=== PATIENT | female | born 1970 | race Caucasian/White ===

== ENCOUNTER 2016-05-13 15:08 | Inpatient (IN) | payer BC ==
[2016-05-13] MEDS ORDERED: Acetaminophen TAB* 325 MG PO PRN (16:15)
[2016-05-13] MEDS ORDERED: Docusate CAP* 100 MG PO PRN (16:17)
[2016-05-13] MEDS ORDERED: diPHENhydraMINE PO* 25 MG PO PRN (16:17)
[2016-05-13] MEDS ORDERED: Morphine INJ* 10 MG/ML 1 ML SYRINGE IV PRN (16:21)
[2016-05-13] MEDS ORDERED: oxyCODONE/Acetamin 5/325 MG* TAB PO PRN (16:22)
[2016-05-13] MEDS ORDERED: Polyethylene Glycol 3350* 17 GM PACKET PO PRN (16:23)
[2016-05-13] MEDS: Prochlorperazine TAB* 5 MG PO PRN (16:34)
[2016-05-13] MEDS ORDERED: Enoxaparin(*) 40 MG/0.4 ML SYR SUBCUT SCH (17:00)
[2016-05-13] MEDS: Scopolomine PATCH Remove* 1 NOTE MISC PATCH OFF SCH (18:00)
[2016-05-13] MEDS: DOXYcycline CAP(*) 100 MG PO SCH (22:26)
[2016-05-13] MEDS: oxyCODONE SR TAB(*) 20 MG TAB.SR PO SCH (22:26)
[2016-05-13] MEDS: Ciprofloxacin TAB* 750 MG PO SCH (22:26)
[2016-05-13] MEDS: ALPRAZolam TAB* 0.5 MG PO PRN (22:26)
[2016-05-13] MEDS: Heparin VIAL(*) 5000 UNITS/ML VIAL (FIVE THOUSAND) SUBCUT SCH (22:28)
[2016-05-13] MEDS: Senna TAB PO SCH (22:30)
[2016-05-14] MEDS: Heparin VIAL(*) 5000 UNITS/ML VIAL (FIVE THOUSAND) SUBCUT SCH ×3 (06:22→21:47)
[2016-05-14] MEDS: DOXYcycline CAP(*) 100 MG PO SCH ×3 (06:26→20:37)
--- NOTE | 2016-05-14 06:28 | PN ---
Subjective Date of Service: 05/14/16 Interval History: Ms. Anthony states that she is feeling well. She reports being compliant with the Bipap overnight again and feeling much more awake and rested today. She was also happy to report that she sat up on the edge of the bed for 8 minutes today. She denies acute complaint. Objective Active Medications: Acetaminophen (Tylenol Tab*) 650 mg PO Q4H PRN Alprazolam (Xanax Tab*) 1 mg PO BID PRN Ciprofloxacin (Cipro Tab*) 750 mg PO 0900,2100 [facility] Diphenhydramine HCl (Benadryl Po*) 25 mg PO Q6H PRN Docusate Sodium (Colace Cap*) 100 mg PO BID PRN Doxycycline Hyclate (Vibramycin Cap(*)) 100 mg PO 0600,1500,2000 [facility] Ferrous Sulfate (Ferrous Sulfate Tab*) 325 mg PO DAILY [facility] Heparin Sodium (Porcine) (Heparin Vial(*)) 5,000 units SUBCUT Q8HR [facility] Heparin Sodium (Porcine) (Heparin Flush Picc/Ml/Cvc(*)) 1 - 3 ml FLUSH 0600, 1800 [facility] Morphine Sulfate (Morphine Inj (Syringe)*) 5 mg IV Q4H PRN Oxybutynin Chloride (Ditropan Tab*) 5 mg PO BID PRN Oxycodone HCl (Oxycontin(*)) 20 mg PO BID [facility] Oxycodone HCl (Roxycodone Tab*) 10 mg PO Q4H PRN Oxycodone/Acetaminophen (Percocet 5/325 Tab*) 1 tab PO Q4H PRN Pharmacy Profile Note (Scopolomine Patch Remove*) 1 note PATCH OFF Q72H [facility] Polyethylene Glycol/Electrolytes (Miralax*) 17 gm PO DAILY PRN Prochlorperazine (Compazine Tab*) 5 mg PO Q6H PRN Senna (Senokot Tab*) 1 tab PO BEDTIME [facility] Sertraline HCl (Zoloft*) 200 mg PO DAILY [facility] Vital Signs 05/13/16 05/13/16 05/13/16 16:14 18:00 18:25 Temperature 98.4 F Pulse Rate 76 Respiratory 16 19 19 Rate Blood Pressure 125/50 (mmHg) O2 Sat by Pulse 95 Oximetry 12/29/16 12/29/16 12/30/16 22:00 22:26 00:26 Temperature Pulse Rate Respiratory 20 20 20 Rate Blood Pressure (mmHg) O2 Sat by Pulse Oximetry Oxygen Devices in Use Now: Nasal Cannula Appearance: Female sitting up in bed in NAD Respiratory: Symmetrical Chest Expansion and Respiratory Effort, Clear to Auscultation Cardiovascular: NL Sounds; No Murmurs; No JVD Abdominal: NL Sounds; No Tenderness; No Distention Skin: - - Minimal rash to right arm Neurological: Alert and Oriented x 3, NL Muscle Strength and Tone Nutrition: Taking PO's Assess/Plan/Problems-Billing Assessment: Ms. Anthony is a 45 yo female with a PMH of morbid obesity with BMI 114 and anxiety/depression who originally presented with R lower leg fracture s/p ORIF 03/17 complicated by wound dehiscence and deep infection s/p multiple return trips to OR, now with wound vac who continues to be NWB on right. - Patient Problems (1) Fracture of right tibia and fibula Comment: S/P ORIF right tib-fib 03/17/16. S/P wound dehiscence and multiple trips to OR for debridement. Dr. Connelly and Dr. Merchant following. Wound care per ortho, wound vac in situ. Continue cipro and doxycyline per recommendations from Dr. Merchant. (2) Chronic respiratory failure Comment: Pt's acidosis resoved as of last ABG. Continue bipap, pt needs encouragement to ensure compliance. Obesity hypoventilation syndrome, most likely chronic but likely worsened in the setting of immobility and narcotics. (3) Morbid obesity with BMI of 70 and over, adult Comment: BMI >100. Mildred Lino following with patient. multimedia services manager involved to assist with placement into bariatric facility. Continue calorie count. Encouraged exercises using resistance bands and weights and sitting on edge of bed with PT. (4) Anxiety Comment: Continue sertraline and alprazolam. Supportive care. (5) Anemia Comment: HH stable. Appears to be anemia of chronic disease and acute blood loss anemia (per ortho, she lost quite a lot of blood during initial surgery). Ferritin 21, but likely elevated as acute phase reactant. Low iron, but normal TIBC. Stool for occult blood was negative x2. B12 and Folate WNL. Continue Ferrous sulfate daily. (6) Depression Code(s): F32.9 - MAJOR DEPRESSIVE DISORDER, SINGLE EPISODE, UNSPECIFIED SNOMED Code(s): 17523213 Comment: Greatly appreciate consult from Dr Muniz on 04/29/16. He recommended increasing her Zoloft to 200 mg daily and trying to limit her Xanax use. He did agree that she was a good candidate for participation in a bariatric program (7) DVT prophylaxis Comment: SQ Heparin (8) Full code status Status and Disposition: Swing status.
[2016-05-14] MEDS: oxyCODONE TAB* 5 MG TAB PO PRN (08:11)
[2016-05-14] MEDS: oxyCODONE SR TAB(*) 20 MG TAB.SR PO SCH ×2 (08:11→20:37)
[2016-05-14] MEDS: Ciprofloxacin TAB* 750 MG PO SCH ×2 (08:11→20:37)
[2016-05-14] MEDS: Ferrous Sulfate TAB* 325 MG PO SCH (08:11)
[2016-05-14] MEDS: Sertraline* 100 MG TAB PO SCH (08:11)
[2016-05-14] MEDS: Senna TAB PO SCH (20:38)
[2016-05-14] MEDS: ALPRAZolam TAB* 0.5 MG PO PRN (21:47)
[2016-05-15] MEDS: Heparin VIAL(*) 5000 UNITS/ML VIAL (FIVE THOUSAND) SUBCUT SCH ×3 (05:30→22:06)
[2016-05-15] MEDS: DOXYcycline CAP(*) 100 MG PO SCH ×3 (05:30→20:20)
[2016-05-15] MEDS: oxyCODONE SR TAB(*) 20 MG TAB.SR PO SCH ×2 (09:36→20:20)
[2016-05-15] MEDS: Ferrous Sulfate TAB* 325 MG PO SCH (09:36)
[2016-05-15] MEDS: Sertraline* 100 MG TAB PO SCH (09:37)
[2016-05-15] MEDS: Ciprofloxacin TAB* 750 MG PO SCH ×2 (09:37→20:19)
--- NOTE | 2016-05-15 10:03 | PN ---
Progress Note - Progress Note SOAP: Subjective: [Pt states that she has a sensation of "rock in a shoe" feeling in her splint since it was moved last night. The pt states the splint was partially removed last night d/t some feeling of pain and she thinks it was not placed back on like it was before. Pt is concerned about this. Pt states that otherwise she is doing well and she is feeling little pain currently. ] Objective: [General - Pt is alert, awake and oriented. Pt is in no acute distress. MSK: RLE: Pts splint looks slightly ajar. Pt is able to wiggle toes and has sensation in her toes to light touch. ] Vital Signs Temp 98.2 F 05/15/16 07:41 Pulse 60 05/15/16 07:41 Resp 16 05/15/16 09:36 BP 114/52 05/15/16 07:41 Pulse Ox 98 05/15/16 07:59 Intake & Output 05/14/16 05/15/16 05/15/16 18:59 06:59 18:59 Intake Total 380 1000 Output Total 600 1000 Balance -220 0 Weight 617 lb 8 oz Intake: Oral 380 1000 Output: Golden 600 1000 Other: Date of Last Bowel 05/14/16 Movement # Bowel Movements 1 Estimated Stool Amount Medium Assessment: [S/P ORIF 03/17/16 w/multiple subsequent washouts. ] Plan: [Splint was re-adjusted successfully, pt reports no rock and that it feels like it did before. Pt will continue with PT/OT Pt will continue with anticoagulation Hospitalists will continue to monitor Await placement. ]
[2016-05-15] MEDS: oxyCODONE TAB* 5 MG TAB PO PRN (10:24)
[2016-05-15] MEDS: Scopolomine PATCH Remove* 1 NOTE MISC PATCH OFF SCH (11:34)
[2016-05-15] MEDS: Senna TAB PO SCH (20:21)
[2016-05-16] MEDS: DOXYcycline CAP(*) 100 MG PO SCH ×3 (05:51→21:40)
[2016-05-16] MEDS: Heparin VIAL(*) 5000 UNITS/ML VIAL (FIVE THOUSAND) SUBCUT SCH ×3 (05:58→21:42)
[2016-05-16] MEDS: oxyCODONE SR TAB(*) 20 MG TAB.SR PO SCH ×2 (08:49→21:41)
[2016-05-16] MEDS: Sertraline* 100 MG TAB PO SCH (08:49)
[2016-05-16] MEDS: Ferrous Sulfate TAB* 325 MG PO SCH (08:49)
[2016-05-16] MEDS: ALPRAZolam TAB* 0.5 MG PO PRN (08:50)
[2016-05-16] MEDS: Ciprofloxacin TAB* 750 MG PO SCH ×2 (08:50→21:40)
--- NOTE | 2016-05-16 12:07 | PN ---
Progress Note - Progress Note SOAP: Subjective: [ Pt states she is doing well today. Feels as if her splint might be a little loose. Pt denies chest pain or SOB. ] Objective: [General - Pt is alert, awake and oriented. Pt is in no acute distress. MSK: RLE: Pt is able to wiggle toes and has sensation in her toes to light touch. ] Vital Signs Temp 98.7 F 05/16/16 07:42 Pulse 72 05/16/16 07:42 Resp 18 05/16/16 10:49 BP 114/50 05/16/16 07:42 Pulse Ox 95 05/16/16 08:00 Intake & Output 05/15/16 05/16/16 05/16/16 18:59 06:59 18:59 Intake Total 200 960 200 Output Total 550 1025 Balance -350 -65 200 Weight 623 lb 11.2 oz 624 lb 12.8 oz Intake: Oral 200 960 200 Output: Golden 550 1025 Assessment: [S/P ORIF 03/17/16 w/multiple subsequent washouts. ] Plan: [Pt will continue with PT/OT Pt will continue with anticoagulation Hospitalists will continue to monitor Await placement. ]
[2016-05-16] MEDS: Senna TAB PO SCH (21:40)
[2016-05-17] MEDS: Heparin VIAL(*) 5000 UNITS/ML VIAL (FIVE THOUSAND) SUBCUT SCH ×3 (06:42→22:06)
[2016-05-17] MEDS: DOXYcycline CAP(*) 100 MG PO SCH ×3 (06:43→20:07)
[2016-05-17] MEDS ORDERED: PROCHLORPERAZINE INJ 5 MG/ML 2 ML VIAL IV ONE (08:26)
[2016-05-17] MEDS: Ferrous Sulfate TAB* 325 MG PO SCH ×2 (09:02→13:25)
[2016-05-17] MEDS ORDERED: Midazolam* 1 MG/ML 2 ML VIAL (2 MG) ONE ×2 (09:47→10:30)
[2016-05-17] MEDS ORDERED: KETAMINE HCL* 50 MG/ML 10 ML VIAL ONE (09:47)
[2016-05-17] MEDS ORDERED: Lidocaine 2% PF* 10 ML AMP ONE (10:23)
[2016-05-17] MEDS ORDERED: Bupivacaine 0.5% SDV PF* 30 ML VIAL ONE (10:24)
[2016-05-17] MEDS ORDERED: ceFAZolin 1 GM in Dextrose (*) 1 GM/50 ML BAG IVPB ONE (10:27)
[2016-05-17] MEDS ORDERED: ceFAZolin 2 GM PREMIX(*) 2 GM/50 ML BAG IVPB ONE (10:27)
[2016-05-17] MEDS: oxyCODONE TAB* 5 MG TAB PO PRN (13:25)
[2016-05-17] MEDS: Sertraline* 100 MG TAB PO SCH (13:25)
[2016-05-17] MEDS: Ciprofloxacin TAB* 750 MG PO SCH ×2 (13:25→22:05)
[2016-05-17] MEDS: oxyCODONE SR TAB(*) 20 MG TAB.SR PO SCH ×2 (13:33→20:08)
[2016-05-17] MEDS: Senna TAB PO SCH (20:01)
[2016-05-17] MEDS: ALPRAZolam TAB* 0.5 MG PO PRN (20:07)
--- NOTE | 2016-05-17 22:35 | OP ---
DATE OF OPERATION: 05/17/16 - ROOM #351 DATE OF : 70 SURGEON: Geoff Connelly MD ANESTHESIOLOGIST: Ronak Stoddard MD ANESTHESIA: MAC PRE-OP DIAGNOSIS: Chronic wound, right distal tibia, ankle fracture. POST-OP DIAGNOSIS: Chronic wound, right distal tibia, ankle fracture. OPERATIVE PROCEDURE: Suture removal under IV sedation with the VAC dressing change. DESCRIPTION OF PROCEDURE: The patient was taken to the operating room where the splint was removed from the right ankle. The back dressing removed as well. The wound appeared to be relatively well healed. So, the sutures were removed. These were large deep bolstered retention sutures. The wound itself was shallow with a small area of dehiscence in the middle third, which also appeared shallow. A new VAC dressing was applied and sealed with Ioban dressing. A compression dressing applied to the ankle. Prior to leaving the operating room, the nurses assisted with a dressing bed change and perineal wash. [id number]/[facility] #: [id number] MTDD
[2016-05-18] MEDS: DOXYcycline CAP(*) 100 MG PO SCH ×3 (06:01→20:22)
[2016-05-18] MEDS: Heparin VIAL(*) 5000 UNITS/ML VIAL (FIVE THOUSAND) SUBCUT SCH ×3 (06:01→22:13)
--- NOTE | 2016-05-18 08:48 | PN ---
Progress Note - Progress Note SOAP: Subjective: [] pt resting comfortably with no complaints Objective: Vital Signs Temp Pulse Resp BP Pulse Ox 98.2 F 66 17 113/51 99 05/18/16 08:02 05/18/16 08:02 05/18/16 08:02 05/18/16 08:02 05/18/16 08:02 Assessment: s/p right tibia ORIF Plan: 1) PT/OT-NWB RLE 2) continue DVT prophylaxis 3) hospitalist co-managing
[2016-05-18] MEDS: Ciprofloxacin TAB* 750 MG PO SCH ×2 (09:27→21:14)
[2016-05-18] MEDS: Sertraline* 100 MG TAB PO SCH (09:27)
[2016-05-18] MEDS: oxyCODONE SR TAB(*) 20 MG TAB.SR PO SCH ×2 (09:27→21:14)
[2016-05-18] MEDS: Ferrous Sulfate TAB* 325 MG PO SCH (09:27)
[2016-05-18] MEDS: Prochlorperazine TAB* 5 MG PO PRN ×2 (16:09→22:13)
--- NOTE | 2016-05-18 18:33 | PN ---
Subjective Date of Service: 05/18/16 Interval History: Patient seen and examined at bedside. Pt states that she has been having lower back pain since she went to the OR yesterday. Pt feels that it may be muscular. She states that the discomfort in her back is similar to when she has a UTI or her menses. She states that she has 3 days of "bleeding" last week, so this discomfort could also be related to her menses. Pt is also complaining of a "rash" near her PICC line, she feels this is related to the tape. She has sensitive skin and would like the dressing to be changed on her PICC, she states that lotion is helping with the itching. Pt states that she continues to have nausea, and increased anxiety. Pt states that she feels that she has a lot of reasons to be anxious and feels this may just be "normal", but also feels that this correlates with her increase in Zoloft. Denies fever, chills, chest discomfort, shortness of breath, abdominal pain, or tremors. Family History: Unchanged from Admission Social History: Unchanged from Admission Past Medical History: Unchanged from Admission Objective Active Medications: Acetaminophen (Tylenol Tab*) 650 mg PO Q4H PRN Reason: FEVER/PAIN Alprazolam (Xanax Tab*) 1 mg PO BID PRN Reason: ANXIETY Ciprofloxacin (Cipro Tab*) 750 mg PO 0900,2100 [facility] Diphenhydramine HCl (Benadryl Po*) 25 mg PO Q6H PRN Reason: ITCHY Docusate Sodium (Colace Cap*) 100 mg PO BID PRN Reason: CONSTIPATION Doxycycline Hyclate (Vibramycin Cap(*)) 100 mg PO 0600,1500,2000 [facility] Ferrous Sulfate (Ferrous Sulfate Tab*) 325 mg PO DAILY [facility] Heparin Sodium (Porcine) (Heparin Vial(*)) 5,000 units SUBCUT Q8HR [facility] Heparin Sodium (Porcine) (Heparin Flush Picc/Ml/Cvc(*)) 1 - 3 ml FLUSH 0600, 1800 [facility] Morphine Sulfate (Morphine Inj (Syringe)*) 5 mg IV Q4H PRN Reason: PAIN Oxybutynin Chloride (Ditropan Tab*) 5 mg PO BID PRN Reason: BLADDER SPASMS Oxycodone HCl (Oxycontin(*)) 20 mg PO BID [facility] Oxycodone HCl (Roxycodone Tab*) 10 mg PO Q4H PRN Reason: PAIN Oxycodone/Acetaminophen (Percocet 5/325 Tab*) 1 tab PO Q4H PRN Reason: PAIN Polyethylene Glycol/Electrolytes (Miralax*) 17 gm PO DAILY PRN Reason: CONSTIPATION Prochlorperazine (Compazine Tab*) 5 mg PO Q6H PRN Reason: NAUSEA Senna (Senokot Tab*) 1 tab PO BEDTIME [facility] Sertraline HCl (Zoloft*) 200 mg PO DAILY [facility] Vital Signs 05/17/16 05/17/16 05/17/16 19:06 19:11 20:00 Temperature 98.6 F Pulse Rate 66 Respiratory 18 18 Rate Blood Pressure 107/50 (mmHg) O2 Sat by Pulse 98 Oximetry 05/17/16 05/17/16 05/17/16 20:07 20:08 22:07 Temperature Pulse Rate Respiratory 18 18 18 Rate Blood Pressure (mmHg) O2 Sat by Pulse Oximetry 05/17/16 05/18/16 05/18/16 22:08 08:02 08:30 Temperature 98.2 F Pulse Rate 66 Respiratory 18 17 17 Rate Blood Pressure 113/51 (mmHg) O2 Sat by Pulse 99 99 Oximetry 05/18/16 05/18/16 05/18/16 09:27 11:27 16:06 Temperature 98.3 F Pulse Rate 82 Respiratory 16 16 18 Rate Blood Pressure 154/66 (mmHg) O2 Sat by Pulse 94 Oximetry Oxygen Devices in Use Now: Nasal Cannula - 2 L Appearance: NAD, laying in bed. Eyes: No Scleral Icterus, PERRLA Ears/Nose/Mouth/Throat: NL Teeth, Lips, Gums, Mucous Membranes Moist Neck: NL Appearance and Movements; NL JVP, Trachea Midline Respiratory: Symmetrical Chest Expansion and Respiratory Effort, Clear to Auscultation Cardiovascular: NL Sounds; No Murmurs; No JVD, RRR Abdominal: NL Sounds; No Tenderness; No Distention - Bowel sounds present, abdomen large. Skin: - - KITA wrap to right foot clean, dry and intact. Slight rash to right upper arm. Neurological: Alert and Oriented x 3, NL Muscle Strength and Tone Lines/Tubes/Other Access: Clean, Dry and Intact Central Line - PICC to right UE , site benign. Nutrition: Taking PO's Assess/Plan/Problems-Billing Assessment: Ms. Anthony is a 45 yo female with a PMH of morbid obesity with BMI 114 and anxiety/depression who originally presented with R lower leg fracture s/p ORIF 03/17 complicated by wound dehiscence and deep infection s/p multiple return trips to OR, now with wound vac who continues to be NWB on right. - Patient Problems (1) Fracture of right tibia and fibula Code(s): S82.201A - UNSP FRACTURE OF SHAFT OF RIGHT TIBIA, INIT FOR CLOS FX; S82.401A - UNSP FRACTURE OF SHAFT OF RIGHT FIBULA, INIT FOR CLOS FX SNOMED Code(s): 72277847 Comment: S/P ORIF right tib-fib 03/17/16. S/P wound dehiscence and multiple trips to OR for debridement. Dr. Connelly and Dr. Merchant following. Wound care per ortho, wound vac in situ. Continue cipro and doxycyline per recommendations from Dr. Merchant. (2) Chronic respiratory failure Code(s): J96.10 - CHRONIC RESPIRATORY FAILURE, UNSP W HYPOXIA OR HYPERCAPNIA SNOMED Code(s): 12933927 Comment: Continue bipap, pt needs encouragement to ensure compliance. Obesity hypoventilation syndrome, most likely chronic but likely worsened in the setting of immobility and narcotics. (3) Morbid obesity with BMI of 70 and over, adult Code(s): E66.9 - OBESITY, UNSPECIFIED; Z68.45 - BODY MASS INDEX (BMI) 70 OR GREATER, ADULT SNOMED Code(s): 108744210 Comment: BMI >100. Mildred Lino following with patient. insurance manager involved to assist with placement into bariatric facility. Continue calorie count. Encouraged exercises using resistance bands and weights and sitting on edge of bed with PT. (4) Anxiety Code(s): F41.9 - ANXIETY DISORDER, UNSPECIFIED SNOMED Code(s): 25372522 Comment: Continue sertraline and alprazolam. Supportive care. Pt was questioning if the increase in Zoloft 2 weeks ago, was causing increased anxiety and Nausea. While Serotonin Syndrome could be in the differential, she has been afebrile, doesnt have a tremor, is not agitated, doesnt have diarrhea. I dont believe that this is Serotonin Syndrome. Discussed with Pt that we could decrease her Zoloft, she would like to keep it at the current dose at this time. (5) Anemia Code(s): D64.9 - ANEMIA, UNSPECIFIED SNOMED Code(s): 700099833 Comment: Appears to be anemia of chronic disease and acute blood loss anemia (per ortho, she lost quite a lot of blood during initial surgery). Continue Ferrous sulfate daily. (6) Depression Code(s): F32.9 - MAJOR DEPRESSIVE DISORDER, SINGLE EPISODE, UNSPECIFIED SNOMED Code(s): 67714418 Comment: Greatly appreciate consult from Dr Muniz on 04/29/16. He recommended increasing her Zoloft to 200 mg daily and trying to limit her Xanax use. He did agree that she was a good candidate for participation in a bariatric program. (7) DVT prophylaxis Code(s): SHB1943 - SNOMED Code(s): 983088486 Comment: SQ Heparin (8) Full code status Code(s): Z78.9 - OTHER SPECIFIED HEALTH STATUS SNOMED Code(s): 870864349 Status and Disposition: Swing status.
[2016-05-18] MEDS: Senna TAB PO SCH (21:16)
[2016-05-19] MEDS: DOXYcycline CAP(*) 100 MG PO SCH ×3 (06:02→20:17)
[2016-05-19] MEDS: Prochlorperazine TAB* 5 MG PO PRN ×2 (06:02→15:22)
[2016-05-19] MEDS: Heparin VIAL(*) 5000 UNITS/ML VIAL (FIVE THOUSAND) SUBCUT SCH ×3 (06:05→21:25)
[2016-05-19] MEDS: oxyCODONE SR TAB(*) 20 MG TAB.SR PO SCH ×2 (09:33→20:17)
[2016-05-19] MEDS: Ciprofloxacin TAB* 750 MG PO SCH ×2 (09:33→20:17)
[2016-05-19] MEDS: Ferrous Sulfate TAB* 325 MG PO SCH (09:34)
[2016-05-19] MEDS: ALPRAZolam TAB* 0.5 MG PO PRN (09:34)
[2016-05-19] MEDS: Sertraline* 100 MG TAB PO SCH (09:34)
[2016-05-19] MEDS: Senna TAB PO SCH (20:16)
[2016-05-20] MEDS: Heparin VIAL(*) 5000 UNITS/ML VIAL (FIVE THOUSAND) SUBCUT SCH ×3 (06:04→21:57)
[2016-05-20] MEDS: DOXYcycline CAP(*) 100 MG PO SCH ×3 (06:04→20:32)
[2016-05-20] MEDS: Prochlorperazine TAB* 5 MG PO PRN (09:14)
[2016-05-20] MEDS: Ciprofloxacin TAB* 750 MG PO SCH ×2 (09:14→20:32)
[2016-05-20] MEDS: oxyCODONE SR TAB(*) 20 MG TAB.SR PO SCH ×2 (09:15→20:32)
[2016-05-20] MEDS: Sertraline* 100 MG TAB PO SCH (09:15)
[2016-05-20] MEDS: Ferrous Sulfate TAB* 325 MG PO SCH (09:15)
--- NOTE | 2016-05-20 10:13 | PN ---
Progress Note - Progress Note SOAP: Subjective: [Pt was seen this morning. She was sitting up in bed. Pt admits to some itching in the "front of her ankle" but describes it as "dry skin itching". The pt states it is not terrible. Pt denies any pain, SOB, Chest pain or calf pain. ] Objective: [General: pt is alert, awake and oriented. Pt is in no acute distress. MSK: RLE: Dressing is c/d/i. Pt is able to wiggle toes. Has sensation to light touch in toes. No pain in calf. ] Vital Signs Temp 98.4 F 05/19/16 12:46 Pulse 66 05/19/16 12:46 Resp 18 05/20/16 09:15 BP 137/61 05/19/16 12:46 Pulse Ox 98 05/20/16 00:12 Intake & Output 05/19/16 05/20/16 05/20/16 18:59 06:59 18:59 Intake Total 520 1450 Output Total 550 1180 Balance -30 270 Weight 619 lb 3.2 oz Intake: Oral 520 1450 Output: Golden 550 980 Residual 200 Golden 18 Fr 200 Other: Estimated Void Large # Bowel Movements 1 Estimated Stool Amount Large # Voids 1 Assessment: [S/P R tibia ORIF. with staple removal. ] Plan: [continue pain medication as needed Continue management per hospitalist continue PT/OT Continue to wait for placement. ]
[2016-05-20] MEDS ORDERED: oxyCODONE TAB* 5 MG TAB PO PRN (16:36)
[2016-05-20] MEDS: Senna TAB PO SCH (20:31)
[2016-05-20] MEDS: ALPRAZolam TAB* 0.5 MG PO PRN (20:33)
[2016-05-21] MEDS: Heparin VIAL(*) 5000 UNITS/ML VIAL (FIVE THOUSAND) SUBCUT SCH ×3 (05:56→22:22)
[2016-05-21] MEDS: DOXYcycline CAP(*) 100 MG PO SCH ×3 (05:56→20:43)
[2016-05-21] MEDS: Sertraline* 100 MG TAB PO SCH (09:37)
[2016-05-21] MEDS: oxyCODONE SR TAB(*) 20 MG TAB.SR PO SCH ×2 (09:37→20:43)
[2016-05-21] MEDS: Ferrous Sulfate TAB* 325 MG PO SCH (09:39)
[2016-05-21] MEDS: Ciprofloxacin TAB* 750 MG PO SCH ×2 (09:39→20:43)
--- NOTE | 2016-05-21 13:24 | PN ---
Progress Note - Progress Note SOAP: Subjective: [] 45 y/o female s/p tibial ORIF with VAC placement for subsequent infection, states itching around VAC site reduced, no other pains, concerns currently. Would like to know if PICC can be D/C'd. Objective: []General- Well appearing, NAD, resting comfortably MSK- VAC with good suction, serous drainage noted, no odor, no drainage on KITA Assessment: []Stable S/P ORIF R Tibia with VAC placement Plan: []- Continue current care - VAc change at bedside next week by Dr. Connelly - COntinue awaiting placement Vital Signs Temp 98.1 F 05/20/16 11:18 Pulse 65 05/20/16 11:18 Resp 18 05/21/16 11:37 BP 129/53 05/20/16 11:18 Pulse Ox 98 05/21/16 00:20 Intake & Output 05/20/16 05/21/16 05/21/16 18:59 06:59 18:59 Intake Total 560 1500 120 Output Total 700 1150 Balance -140 350 120 Weight 616 lb 12.8 oz 611 lb 9.6 oz Intake: Oral 560 1500 120 Output: Golden 700 1150 Active Medications Generic Name Dose Route Start Last Admin Trade Name Freq PRN Reason Stop Dose Admin Acetaminophen 650 mg 05/13/16 16:15 Tylenol Tab* PO Q4H PRN FEVER/PAIN Alprazolam 1 mg 05/20/16 16:35 05/20/16 20:33 Xanax Tab* PO 1 mg BID PRN Administration ANXIETY Ciprofloxacin 750 mg 05/13/16 21:00 05/21/16 09:39 Cipro Tab* PO 750 mg 0900,2100 [facility] Administration Diphenhydramine HCl 25 mg 05/13/16 16:17 Benadryl Po* PO Q6H PRN ITCHY Docusate Sodium 100 mg 05/13/16 16:17 Colace Cap* PO BID PRN [facility]ST[facility] Doxycycline Hyclate 100 mg 05/13/16 20:00 05/21/16 05:56 Vibramycin Cap(*) PO 100 mg 0600,1500,2000 [facility] Administration Ferrous Sulfate 325 mg 05/14/16 09:00 05/21/16 09:39 Ferrous Sulfate Tab* PO 325 mg DAILY [facility] Administration Heparin Sodium (Porcine) 5,000 units 05/13/16 22:00 05/21/16 05:56 Heparin Vial(*) SUBCUT 5,000 units Q8HR [facility] Administration Heparin Sodium (Porcine) 1 - 3 ml 05/13/16 18:00 05/21/16 05:56 Heparin Flush Picc/Ml/Cvc(*) FLUSH 1 ml 0600,1800 [facility] Administration Protocol Oxybutynin Chloride 5 mg 05/13/16 16:21 Ditropan Tab* PO BID PRN BLADDER SPASMS Oxycodone HCl 20 mg 05/13/16 21:00 05/21/16 09:37 Oxycontin(*) PO 20 mg BID [facility] Administration Oxycodone HCl 10 mg 05/20/16 16:36 Roxycodone Tab* PO Q4H PRN PAIN Polyethylene Glycol/Electrolytes 17 gm 05/13/16 16:23 Miralax* PO DAILY PRN [facility] Prochlorperazine 5 mg 05/13/16 16:23 05/20/16 09:14 Compazine Tab* PO 5 mg Q6H PRN Administration NAUSEA Senna 1 tab 05/13/16 21:00 05/20/16 20:31 Senokot Tab* PO Not Given BEDTIME [facility] Sertraline HCl 200 mg 05/14/16 09:00 05/21/16 09:37 Zoloft* PO 200 mg DAILY [facility] Administration
[2016-05-21] MEDS: Prochlorperazine TAB* 5 MG PO PRN (20:42)
[2016-05-21] MEDS: Senna TAB PO SCH (20:43)
[2016-05-22 05:22] LABS: Hematocrit 26 % (35-47); Mean Corpuscular HGB Conc 31 g/dl (31-36); Mean Corpuscular Hemoglobin 25 pg (27-31); Mean Corpuscular Volume 80 fL (80-97); Mean Platelet Volume 7 um3 (7.4-10.4); Red Blood Count 3.23 10^6/ul (4.0-5.4); Red Cell Distribution Width 21 % (10.5-15); White Blood Count 4.9 10^3/ul (3.5-10.8)
[2016-05-22 05:36] LABS: BUN/Creatinine Ratio 11.4 (8-20); Calcium 8.7 mg/dL (8.6-10.3); EGFR Non-African American 33.4 (>60); Potassium 3.5 mmol/L (3.5-5.0)
[2016-05-22] MEDS: DOXYcycline CAP(*) 100 MG PO SCH ×3 (05:53→20:50)
[2016-05-22] MEDS: Heparin VIAL(*) 5000 UNITS/ML VIAL (FIVE THOUSAND) SUBCUT SCH ×3 (05:54→21:46)
[2016-05-22] MEDS: oxyCODONE SR TAB(*) 20 MG TAB.SR PO SCH ×2 (08:35→20:51)
[2016-05-22] MEDS: Ferrous Sulfate TAB* 325 MG PO SCH (08:36)
[2016-05-22] MEDS: Sertraline* 100 MG TAB PO SCH (08:36)
[2016-05-22] MEDS: Ciprofloxacin TAB* 750 MG PO SCH ×2 (08:37→20:50)
[2016-05-22] MEDS: Multivitamins/Minerals TAB PO SCH (08:37)
[2016-05-22] MEDS: Prochlorperazine TAB* 5 MG PO PRN ×2 (08:45→22:31)
[2016-05-22] MEDS: Metoclopramide TAB* 10 MG PO SCH ×2 (12:26→16:52)
--- NOTE | 2016-05-22 15:01 | PN ---
Subjective Date of Service: 05/22/16 Interval History: Pt is feeling well. She states that for the last few days she noticed an area of redness on her abdominal wall. This area is tender to touch. Objective Active Medications: Acetaminophen (Tylenol Tab*) 650 mg PO Q4H PRN PRN Reason: FEVER/PAIN Alprazolam (Xanax Tab*) 1 mg PO BID PRN PRN Reason: ANXIETY Last Admin: 05/20/16 20:33 Dose: 1 mg Ciprofloxacin (Cipro Tab*) 750 mg PO 0900,2100 [facility] Last Admin: 05/22/16 08:37 Dose: 750 mg Diphenhydramine HCl (Benadryl Po*) 25 mg PO Q6H PRN PRN Reason: ITCHY Docusate Sodium (Colace Cap*) 100 mg PO BID PRN PRN Reason: CONSTIPATION Doxycycline Hyclate (Vibramycin Cap(*)) 100 mg PO 0600,1500,2000 [facility] Last Admin: 05/22/16 14:14 Dose: 100 mg Ferrous Sulfate (Ferrous Sulfate Tab*) 325 mg PO DAILY [facility] Last Admin: 05/22/16 08:36 Dose: 325 mg Heparin Sodium (Porcine) (Heparin Vial(*)) 5,000 units SUBCUT Q8HR [facility] Last Admin: 05/22/16 14:14 Dose: 5,000 units Heparin Sodium (Porcine) (Heparin Flush Picc/Ml/Cvc(*)) 1 - 3 ml FLUSH 0600, 1800 [facility] PRN Reason: Protocol Last Admin: 05/22/16 05:55 Dose: 1 ml Metoclopramide HCl (Reglan Tab*) 5 mg PO AC [facility] Last Admin: 05/22/16 12:26 Dose: 5 mg Multivitamins/Minerals (Theragran/Minerals Tab*) 1 tab PO DAILY [facility] Last Admin: 05/22/16 08:37 Dose: 1 tab Oxybutynin Chloride (Ditropan Tab*) 5 mg PO BID PRN PRN Reason: BLADDER SPASMS Oxycodone HCl (Oxycontin(*)) 20 mg PO BID [facility] Last Admin: 05/22/16 08:35 Dose: 20 mg Oxycodone HCl (Roxycodone Tab*) 10 mg PO Q4H PRN PRN Reason: PAIN Polyethylene Glycol/Electrolytes (Miralax*) 17 gm PO DAILY PRN PRN Reason: CONSTIPATION Prochlorperazine (Compazine Tab*) 5 mg PO Q6H PRN PRN Reason: NAUSEA Last Admin: 05/22/16 08:45 Dose: 5 mg Senna (Senokot Tab*) 1 tab PO BEDTIME [facility] Last Admin: 05/21/16 20:43 Dose: Not Given Sertraline HCl (Zoloft*) 200 mg PO DAILY [facility] Last Admin: 05/22/16 08:36 Dose: 200 mg Vital Signs 05/21/16 05/21/16 05/21/16 16:01 20:00 20:43 Temperature Pulse Rate Respiratory 18 18 Rate Blood Pressure (mmHg) O2 Sat by Pulse 93 Oximetry 05/21/16 05/21/16 05/22/16 22:24 22:43 01:57 Temperature 98.5 F Pulse Rate 72 Respiratory 18 17 Rate Blood Pressure (mmHg) O2 Sat by Pulse 96 97 Oximetry 05/22/16 05/22/16 05/22/16 08:00 08:35 10:35 Temperature Pulse Rate Respiratory 18 16 18 Rate Blood Pressure (mmHg) O2 Sat by Pulse Oximetry 05/22/16 05/22/16 11:45 11:50 Temperature 98.1 F 98.1 F Pulse Rate 64 64 Respiratory 18 18 Rate Blood Pressure 134/49 134/49 (mmHg) O2 Sat by Pulse 93 93 Oximetry Oxygen Devices in Use Now: Nasal Cannula - 2L-93% Appearance: Middle aged super morbidly obese female lying in bed, NAD Eyes: No Scleral Icterus Ears/Nose/Mouth/Throat: Mucous Membranes Moist Respiratory: Symmetrical Chest Expansion and Respiratory Effort, Clear to Auscultation - anteriorly Cardiovascular: NL Sounds; No Murmurs; No JVD, RRR, No Edema Abdominal: - - BS+ soft, massively obese, NT except over small erythematous area Extremities: No Clubbing, Cyanosis Skin: No Nodules or Sclerosis, - - wound vac in place on R LE, small area of erythema/induration on the right side of the abdominal panus- slightly warm to touch, larger area of surrounding athletic scout erythema Neurological: Alert and Oriented x 3 Result Diagrams: 05/22/16 05:05 05/22/16 05:05 Assess/Plan/Problems-Billing Ms. Anthony is a 45 yo female with a PMHx of super morbid obesity with BMI 114 and anxiety/depression who originally presented with R lower leg fracture s/p ORIF 03/17 complicated by wound dehiscence and deep infection s/p multiple return trips to OR, now with wound vac who continues to be NWB on right. - Patient Problems (1) Cellulitis Current Visit: No Status: Acute Priority: High Onset Date: 12/12/13 Code (s): L03.90 - CELLULITIS, UNSPECIFIED SNOMED Code(s): 310999323 Comment: There is a questionable cellulitis to the abdominal wall. She is afebrile and does not have an elevated WBC count. For now will continue to monitor the area. If worsened will get ultrasound and ask Dr. Merchant for further recommendations. (2) Fracture of right tibia and fibula Current Visit: Yes Status: Acute Code(s): S82.201A - UNSP FRACTURE OF SHAFT OF RIGHT TIBIA, INIT FOR CLOS FX; S82.401A - UNSP FRACTURE OF SHAFT OF RIGHT FIBULA, INIT FOR CLOS FX SNOMED Code(s): 80390362 Comment: S/P ORIF right tib-fib 03/17/16. S/P wound dehiscence and multiple trips to OR for debridement. Dr. Connelly and Dr. Merchant following. Wound care per ortho, wound vac in place. Continue cipro and doxycyline per recommendations from Dr. Merchant. Continue non-weight bearing. Hospital is attempting to get additional bariatric equipment secured so as the patient can begin to rehab here as she is unable to be placed anywhere. (3) Morbid obesity with BMI of 70 and over, adult Current Visit: Yes Status: Chronic Code(s): E66.9 - OBESITY, UNSPECIFIED; Z68.45 - BODY MASS INDEX (BMI) 70 OR GREATER, ADULT SNOMED Code(s): 918775508 Comment: BMI >100. Mildred Lino following with patient. Plan is to keep the patient hospitalized at [facility] to rehab and lose weight. This will be a multidisciplinary effort. (4) Depression Current Visit: Yes Status: Chronic Code(s): F32.9 - MAJOR DEPRESSIVE DISORDER, SINGLE EPISODE, UNSPECIFIED SNOMED Code(s): 89351194 Comment: Continue zoloft 200mg daily. (5) DVT prophylaxis Current Visit: Yes Status: Acute Code(s): WUY1085 - SNOMED Code(s): 545796147 Comment: SQ Heparin (6) Full code status Current Visit: Yes Status: Chronic Code(s): Z78.9 - OTHER SPECIFIED HEALTH STATUS SNOMED Code(s): 564645237 Status and Disposition: Swing status.
[2016-05-22] MEDS: ALPRAZolam TAB* 0.5 MG PO PRN (18:14)
[2016-05-22] MEDS: Senna TAB PO SCH (20:52)
[2016-05-23] MEDS: Heparin VIAL(*) 5000 UNITS/ML VIAL (FIVE THOUSAND) SUBCUT SCH ×3 (06:06→21:34)
[2016-05-23] MEDS: DOXYcycline CAP(*) 100 MG PO SCH ×3 (06:07→21:32)
[2016-05-23] MEDS: Metoclopramide TAB* 10 MG PO SCH ×4 (07:22→21:32)
[2016-05-23] MEDS: Sertraline* 100 MG TAB PO SCH (09:10)
[2016-05-23] MEDS: Multivitamins/Minerals TAB PO SCH (09:10)
[2016-05-23] MEDS: oxyCODONE SR TAB(*) 20 MG TAB.SR PO SCH ×2 (09:10→21:33)
[2016-05-23] MEDS: Ferrous Sulfate TAB* 325 MG PO SCH (09:10)
[2016-05-23] MEDS: Ciprofloxacin TAB* 750 MG PO SCH ×2 (09:12→21:32)
--- NOTE | 2016-05-23 09:32 | PN ---
Progress Note - Progress Note SOAP: Subjective: [Pt denies pain R LE.] Objective: [A and O x 3. Nursing staff attending to patient upon my visit. R LE dressing intact, Wound vac in place with minimal amount of serous drainage. Distal gross motor and NV function intact. Vital Signs: Temp Pulse Resp BP Pulse Ox 98.3 F 74 16 135/62 92 05/23/16 07:18 05/23/16 07:18 05/23/16 09:10 05/23/16 07:18 05/23/16 07:18 ] Assessment: [45 you female s/p ORIF R tibia with wound vac placement] Plan: [Con't current care Wound vac change by Dr. Connelly at bedside this week. Awaiting placement for D/C]
[2016-05-23] MEDS: Prochlorperazine TAB* 5 MG PO PRN (10:05)
[2016-05-23] MEDS: Senna TAB PO SCH ×2 (21:33→22:05)
[2016-05-24] MEDS: Heparin VIAL(*) 5000 UNITS/ML VIAL (FIVE THOUSAND) SUBCUT SCH ×3 (06:01→22:25)
[2016-05-24] MEDS: DOXYcycline CAP(*) 100 MG PO SCH ×3 (06:56→19:52)
[2016-05-24] MEDS: Metoclopramide TAB* 10 MG PO SCH ×4 (07:36→21:04)
[2016-05-24] MEDS: Ferrous Sulfate TAB* 325 MG PO SCH (09:06)
[2016-05-24] MEDS: Multivitamins/Minerals TAB PO SCH (09:06)
[2016-05-24] MEDS: Sertraline* 100 MG TAB PO SCH (09:06)
[2016-05-24] MEDS: Ciprofloxacin TAB* 750 MG PO SCH ×2 (09:07→21:04)
[2016-05-24] MEDS: oxyCODONE SR TAB(*) 20 MG TAB.SR PO SCH ×2 (09:07→21:04)
--- NOTE | 2016-05-24 14:07 | RAD ---
INDICATION: Traumatic fracture distal tibia status post operative reduction. COMPARISON: Comparison is made with a prior x-ray study of the right ankle from March 22, 2016. TECHNIQUE: 2 views of the right ankle were obtained. FINDINGS: The patient is status post operative reduction and internal fixation of an oblique comminuted fracture of the distal tibia. There are metallic plates present along the anterior and medial aspect of the distal tibia transfixed with multiple screws spanning the fracture fragments. The bones appear to be in normal alignment. The fracture is still visualized and appears unchanged from the prior study. IMPRESSION: STATUS POST OPERATIVE REDUCTION AND INTERNAL FIXATION OF A OBLIQUE COMMINUTED FRACTURE OF THE DISTAL TIBIA. THERE IS NO SIGNIFICANT CHANGE FROM THE PRIOR STUDY.
[2016-05-24] MEDS ORDERED: Loperamide CAP* 2 MG PO ONE (18:07)
--- NOTE | 2016-05-24 18:09 | PN ---
Progress Note - Progress Note Note: Pt is c/o loose stools that she at times is not even aware she is passing. She would like to try imodium. Will order this for tonight and then discuss with Dr. Merchant tomorrow about continuing this. I doubt cdiff as she is afebrile, no abdominal pain and not large explosive profuse diarrhea. Additionally area of erythema on abdominal wall is improved.
[2016-05-24] MEDS: Senna TAB PO SCH (21:05)
[2016-05-24] MEDS: Oxybutynin TAB* 5 MG PO PRN (23:18)
[2016-05-25] MEDS: Oxybutynin TAB* 5 MG PO PRN ×3 (04:39→20:50)
[2016-05-25] MEDS: Heparin VIAL(*) 5000 UNITS/ML VIAL (FIVE THOUSAND) SUBCUT SCH ×3 (05:28→22:19)
[2016-05-25] MEDS: DOXYcycline CAP(*) 100 MG PO SCH ×3 (05:28→20:45)
[2016-05-25] MEDS: Metoclopramide TAB* 10 MG PO SCH ×4 (07:59→20:44)
[2016-05-25] MEDS: ALPRAZolam TAB* 0.5 MG PO PRN (08:16)
[2016-05-25] MEDS: Ferrous Sulfate TAB* 325 MG PO SCH (09:38)
[2016-05-25] MEDS: Multivitamins/Minerals TAB PO SCH (09:38)
[2016-05-25] MEDS: Ciprofloxacin TAB* 750 MG PO SCH ×2 (09:38→20:45)
[2016-05-25] MEDS: Sertraline* 100 MG TAB PO SCH (09:39)
[2016-05-25] MEDS: oxyCODONE SR TAB(*) 20 MG TAB.SR PO SCH ×2 (09:39→20:45)
--- NOTE | 2016-05-25 12:25 | PN ---
Progress Note - Progress Note SOAP: Subjective: Pt doing well, no c/o pain at this time but has occasional twinges of pain. Able to sit up in bed, stay at bedside for longer periods of time. Denies CP/SOB Objective: Vital Signs: Temp Pulse Resp BP Pulse Ox 98.1 F 70 16 144/60 97 05/24/16 22:32 05/24/16 22:32 05/25/16 10:16 05/24/16 12:55 05/25/16 08:23 Gen: A & O x3, NAD at rest, appears well RLE: Dressing C/D/I, +f/e at MTPs, N/V intact Assessment: S/P right tibia fx ORIF, doing well Plan: Cont PT with ROM right ankle. NWB RLE
[2016-05-25] MEDS: Senna TAB PO SCH (20:50)
[2016-05-26] MEDS: Prochlorperazine TAB* 5 MG PO PRN ×2 (01:14→09:27)
[2016-05-26] MEDS: DOXYcycline CAP(*) 100 MG PO SCH ×3 (06:19→21:18)
[2016-05-26] MEDS: Heparin VIAL(*) 5000 UNITS/ML VIAL (FIVE THOUSAND) SUBCUT SCH ×3 (06:20→21:17)
[2016-05-26] MEDS: Metoclopramide TAB* 10 MG PO SCH ×4 (07:45→21:18)
[2016-05-26] MEDS: Sertraline* 100 MG TAB PO SCH (09:23)
[2016-05-26] MEDS: Ferrous Sulfate TAB* 325 MG PO SCH (09:23)
[2016-05-26] MEDS: oxyCODONE SR TAB(*) 20 MG TAB.SR PO SCH ×2 (09:23→21:18)
[2016-05-26] MEDS: Multivitamins/Minerals TAB PO SCH (09:23)
[2016-05-26] MEDS: Ciprofloxacin TAB* 750 MG PO SCH (09:23)
[2016-05-26] MEDS: Prochlorperazine TAB* 10 MG PO PRN ×3 (09:42→21:18)
[2016-05-26] MEDS: ALPRAZolam TAB* 0.5 MG PO PRN (14:35)
[2016-05-26] MEDS: Oxybutynin TAB* 5 MG PO PRN (19:35)
[2016-05-26] MEDS: Senna TAB PO SCH (21:18)
[2016-05-27] MEDS: Heparin VIAL(*) 5000 UNITS/ML VIAL (FIVE THOUSAND) SUBCUT SCH ×3 (06:25→21:00)
[2016-05-27] MEDS: DOXYcycline CAP(*) 100 MG PO SCH ×3 (06:25→17:07)
[2016-05-27] MEDS: Prochlorperazine TAB* 10 MG PO PRN ×2 (06:25→17:31)
[2016-05-27] MEDS: Sertraline* 100 MG TAB PO SCH (08:43)
[2016-05-27] MEDS: Metoclopramide TAB* 10 MG PO SCH ×4 (08:43→20:39)
[2016-05-27] MEDS: Ferrous Sulfate TAB* 325 MG PO SCH (09:54)
[2016-05-27] MEDS: Multivitamins/Minerals TAB PO SCH (09:54)
[2016-05-27] MEDS: Oxybutynin TAB* 5 MG PO PRN (10:20)
[2016-05-27] MEDS: ALPRAZolam TAB* 0.5 MG PO PRN ×2 (10:20→20:47)
[2016-05-27] MEDS: Trimethobenzamide CAP* 300 MG PO PRN ×2 (10:20→20:47)
[2016-05-27] MEDS: oxyCODONE SR TAB(*) 20 MG TAB.SR PO SCH ×2 (10:21→20:39)
[2016-05-27] MEDS: Senna TAB PO SCH (20:58)
[2016-05-28] MEDS: Heparin VIAL(*) 5000 UNITS/ML VIAL (FIVE THOUSAND) SUBCUT SCH ×3 (05:45→21:38)
[2016-05-28] MEDS: Metoclopramide TAB* 10 MG PO SCH ×4 (08:17→21:38)
[2016-05-28] MEDS: Sertraline* 100 MG TAB PO SCH (08:17)
[2016-05-28] MEDS: Multivitamins/Minerals TAB PO SCH (08:17)
[2016-05-28] MEDS: DOXYcycline CAP(*) 100 MG PO SCH ×3 (08:17→18:17)
[2016-05-28] MEDS: oxyCODONE SR TAB(*) 20 MG TAB.SR PO SCH ×2 (08:17→21:37)
[2016-05-28] MEDS: Ferrous Sulfate TAB* 325 MG PO SCH (08:18)
[2016-05-28] MEDS: Trimethobenzamide CAP* 300 MG PO PRN ×2 (08:26→21:37)
[2016-05-28] MEDS: Oxybutynin TAB* 5 MG PO PRN (21:37)
[2016-05-28] MEDS: ALPRAZolam TAB* 0.5 MG PO PRN (21:37)
[2016-05-28] MEDS: Senna TAB PO SCH (21:38)
[2016-05-29] MEDS: Heparin VIAL(*) 5000 UNITS/ML VIAL (FIVE THOUSAND) SUBCUT SCH ×3 (06:21→21:49)
[2016-05-29 07:26] LABS: Hematocrit 27 % (35-47); Hemoglobin 8.3 g/dl (12.0-16.0); Mean Corpuscular HGB Conc 31 g/dl (31-36); Mean Corpuscular Hemoglobin 25 pg (27-31); Mean Corpuscular Volume 81 fL (80-97); Mean Platelet Volume 7 um3 (7.4-10.4); Red Blood Count 3.33 10^6/ul (4.0-5.4); Red Cell Distribution Width 21 % (10.5-15); White Blood Count 4.3 10^3/ul (3.5-10.8)
[2016-05-29 07:41] LABS: BUN/Creatinine Ratio 12.8 (8-20); C Reactive Protein 21.51 mg/L (< 5.00); Calcium 8.8 mg/dL (8.6-10.3); EGFR African American 59.3 (>60); EGFR Non-African American 46.1 (>60); Globulin 3.7 g/dL (2-4); Potassium 3.6 mmol/L (3.5-5.0); Total Bilirubin 0.8 mg/dL (0.2-1.0); Total Protein 6.7 g/dL (6.4-8.9)
[2016-05-29] MEDS: Metoclopramide TAB* 10 MG PO SCH ×4 (08:15→21:03)
[2016-05-29] MEDS: Sertraline* 100 MG TAB PO SCH (09:18)
[2016-05-29] MEDS: Multivitamins/Minerals TAB PO SCH (09:18)
[2016-05-29] MEDS: Ferrous Sulfate TAB* 325 MG PO SCH ×2 (09:18→21:03)
[2016-05-29] MEDS: oxyCODONE SR TAB(*) 20 MG TAB.SR PO SCH ×2 (09:18→21:02)
[2016-05-29] MEDS: DOXYcycline CAP(*) 100 MG PO SCH ×3 (09:20→18:34)
[2016-05-29 09:58] LABS: Erythrocyte Sed Rate 59 mm/Hr (0-14)
--- NOTE | 2016-05-29 10:00 | PN ---
Progress Note - Progress Note SOAP: Subjective: Pt doing well, sitting up in bed. Denies pain, states bandage seems uncomfortable. Objective: Vital Signs: Temp Pulse Resp BP Pulse Ox 98.4 F 77 16 137/67 99 05/28/16 07:56 05/28/16 07:56 05/29/16 09:18 05/28/16 07:56 05/29/16 08:56 Gen: A & O x3, NAD RLE: Incision well healed with scabbing over it. No d/c, no ttp. +f/e at ankle, MTPs, N/V intact Assessment: S/P right tibia ORIF Plan: Cont PT, NWB RLE. AROM/PROM, gentle strengthening New xeroform dressing applied
[2016-05-29] MEDS: Prochlorperazine TAB* 10 MG PO PRN (10:51)
--- NOTE | 2016-05-29 15:54 | PN ---
Subjective Date of Service: 05/29/16 Interval History: HOSPITALIST PROGRESS NOTE Patient seen and examined at bedside. Her major complaint was nausea and vomiting with Doxycycline, but she was able to tolerated it when she took it with food. Pain is controlled, diarrhea is improved. Family History: Unchanged from Admission Social History: Unchanged from Admission Past Medical History: Unchanged from Admission Objective Active Medications: Acetaminophen (Tylenol Tab*) 650 mg PO Q4H PRN PRN Reason: FEVER/PAIN Alprazolam (Xanax Tab*) 1 mg PO BID PRN PRN Reason: ANXIETY Last Admin: 05/28/16 21:37 Dose: 1 mg Diphenhydramine HCl (Benadryl Po*) 25 mg PO Q6H PRN PRN Reason: ITCHY Docusate Sodium (Colace Cap*) 100 mg PO BID PRN PRN Reason: CONSTIPATION Doxycycline Hyclate (Vibramycin Cap(*)) 100 mg PO 0900,1300,1800 [facility] Last Admin: 05/29/16 14:09 Dose: 100 mg Ferrous Sulfate (Ferrous Sulfate Tab*) 325 mg PO BID [facility] Last Admin: 05/29/16 09:18 Dose: 325 mg Heparin Sodium (Porcine) (Heparin Vial(*)) 5,000 units SUBCUT Q8HR [facility] Last Admin: 05/29/16 14:09 Dose: 5,000 units Metoclopramide HCl (Reglan Tab*) 10 mg PO ACHS [facility] Last Admin: 05/29/16 12:42 Dose: 10 mg Multivitamins/Minerals (Theragran/Minerals Tab*) 1 tab PO DAILY [facility] Last Admin: 05/29/16 09:18 Dose: 1 tab Oxybutynin Chloride (Ditropan Tab*) 5 mg PO BID PRN PRN Reason: BLADDER SPASMS Last Admin: 05/28/16 21:37 Dose: 5 mg Oxycodone HCl (Oxycontin(*)) 20 mg PO BID [facility] Last Admin: 05/29/16 09:18 Dose: 20 mg Oxycodone HCl (Roxycodone Tab*) 10 mg PO Q4H PRN PRN Reason: PAIN Polyethylene Glycol/Electrolytes (Miralax*) 17 gm PO DAILY PRN PRN Reason: CONSTIPATION Prochlorperazine (Compazine Tab*) 10 mg PO Q6H PRN PRN Reason: NAUSEA Last Admin: 05/29/16 10:51 Dose: 10 mg Senna (Senokot Tab*) 1 tab PO BEDTIME [facility] Last Admin: 05/28/16 21:38 Dose: Not Given Sertraline HCl (Zoloft*) 200 mg PO DAILY [facility] Last Admin: 05/29/16 09:18 Dose: 200 mg Trimethobenzamide HCl (Tigan Cap*) 300 mg PO Q8H PRN PRN Reason: NAUSEA Last Admin: 05/28/16 21:37 Dose: 300 mg Vital Signs Selected Entries 05/28/16 07:56 Temperature 98.4 F Pulse Rate 77 Respiratory 18 Rate Blood Pressure 137/67 (mmHg) O2 Sat by Pulse 96 Oximetry Oxygen Devices in Use Now: Nasal Cannula - 2L-93% Appearance: Morbid obese lady lying in bed in NAD. Eyes: No Scleral Icterus Ears/Nose/Mouth/Throat: Mucous Membranes Moist Neck: Trachea Midline Respiratory: Symmetrical Chest Expansion and Respiratory Effort, Clear to Auscultation Cardiovascular: RRR - Normal S1 and S2 Abdominal: NL Sounds; No Tenderness; No Distention - Obese, BS+ Extremities: - - CDI to RLE Neurological: Alert and Oriented x 3 Nutrition: Taking PO's Result Diagrams: 05/29/16 07:10 05/29/16 07:10 Assess/Plan/Problems-Billing Ms. Anthony is a 45 yo female with a PMHx of super morbid obesity with BMI 105 and anxiety/depression who originally presented with R lower leg fracture s/p ORIF 03/17 complicated by wound dehiscence and deep infection s/p multiple return trips to OR, now with wound vac who continues to be NWB on right. - Patient Problems (1) Fracture of right tibia and fibula Comment: - S/P ORIF right tib-fib 03/17/16. S/P wound dehiscence and multiple trips to OR for debridement. - Continue non-weight bearing. - Continue Doxycyline. (2) Morbid obesity with BMI of 70 and over, adult Comment: - Patient has lost 60lbs since admission and is motivated to continue diet. (3) Depression Comment: - Continue Zoloft 200mg daily. (4) DVT prophylaxis Comment: - SQ Heparin. (5) Full code status Status and Disposition: Swing status.
[2016-05-29] MEDS: Senna TAB PO SCH (20:54)
[2016-05-29] MEDS: Oxybutynin TAB* 5 MG PO PRN (21:02)
[2016-05-29] MEDS: ALPRAZolam TAB* 0.5 MG PO PRN (21:02)
[2016-05-29] MEDS: Trimethobenzamide CAP* 300 MG PO PRN (21:03)
[2016-05-30] MEDS: Heparin VIAL(*) 5000 UNITS/ML VIAL (FIVE THOUSAND) SUBCUT SCH ×3 (06:10→21:35)
[2016-05-30] MEDS: Metoclopramide TAB* 10 MG PO SCH ×4 (07:55→21:25)
[2016-05-30] MEDS: Ferrous Sulfate TAB* 325 MG PO SCH ×2 (08:23→21:30)
[2016-05-30] MEDS: oxyCODONE SR TAB(*) 20 MG TAB.SR PO SCH ×2 (09:12→21:33)
[2016-05-30] MEDS: Multivitamins/Minerals TAB PO SCH (09:12)
[2016-05-30] MEDS: Sertraline* 100 MG TAB PO SCH (09:12)
[2016-05-30] MEDS: DOXYcycline CAP(*) 100 MG PO SCH ×3 (09:12→18:02)
--- NOTE | 2016-05-30 10:39 | PN ---
Progress Note - Progress Note SOAP: Subjective: Pt doing well, c/o being tired but no pain. Denies CP/SOB Objective: Vital Signs: Temp Pulse Resp BP Pulse Ox 98.4 F 73 16 130/65 97 05/30/16 08:39 05/30/16 08:39 05/30/16 09:12 05/30/16 08:39 05/30/16 08:39 Gen: A & O x3, NAD at rest RLE: Incision well healed, edema improved significantly. +f/e at ankle and MTPs , N/V intact Assessment: S/P right tibia ORIF Plan: Cont NWB RLE. Able to do AROM/PROM and gentle strengthening Will continue to follow
[2016-05-30] MEDS: Oxybutynin TAB* 5 MG PO PRN ×2 (13:49→21:34)
[2016-05-30] MEDS: Prochlorperazine TAB* 10 MG PO PRN (18:46)
[2016-05-30] MEDS: Senna TAB PO SCH (21:30)
[2016-05-30] MEDS: ALPRAZolam TAB* 0.5 MG PO PRN (21:34)
[2016-05-30] MEDS: Trimethobenzamide CAP* 300 MG PO PRN (21:34)
[2016-05-31] MEDS: Heparin VIAL(*) 5000 UNITS/ML VIAL (FIVE THOUSAND) SUBCUT SCH ×3 (05:42→21:37)
[2016-05-31] MEDS: Sertraline* 100 MG TAB PO SCH (07:59)
[2016-05-31] MEDS: oxyCODONE SR TAB(*) 20 MG TAB.SR PO SCH ×2 (07:59→21:37)
[2016-05-31] MEDS: Ferrous Sulfate TAB* 325 MG PO SCH ×2 (08:00→21:37)
[2016-05-31] MEDS: Multivitamins/Minerals TAB PO SCH (08:00)
[2016-05-31] MEDS: Metoclopramide TAB* 10 MG PO SCH ×4 (08:00→21:37)
[2016-05-31] MEDS: DOXYcycline CAP(*) 100 MG PO SCH ×3 (08:50→17:50)
[2016-05-31] MEDS: Oxybutynin TAB* 5 MG PO PRN ×2 (13:23→21:36)
[2016-05-31] MEDS: ALPRAZolam TAB* 0.5 MG PO PRN ×2 (16:54→21:36)
[2016-05-31] MEDS: Trimethobenzamide CAP* 300 MG PO PRN (21:36)
[2016-05-31] MEDS: Senna TAB PO SCH (21:37)
[2016-06-01] MEDS: Heparin VIAL(*) 5000 UNITS/ML VIAL (FIVE THOUSAND) SUBCUT SCH ×3 (05:45→22:04)
[2016-06-01] MEDS: Ferrous Sulfate TAB* 325 MG PO SCH ×2 (08:14→20:36)
[2016-06-01] MEDS: Multivitamins/Minerals TAB PO SCH (08:14)
[2016-06-01] MEDS: Metoclopramide TAB* 10 MG PO SCH ×4 (08:17→20:36)
[2016-06-01] MEDS: oxyCODONE SR TAB(*) 20 MG TAB.SR PO SCH ×2 (09:15→20:35)
[2016-06-01] MEDS: Sertraline* 100 MG TAB PO SCH (09:16)
[2016-06-01] MEDS: DOXYcycline CAP(*) 100 MG PO SCH ×3 (09:16→18:09)
--- NOTE | 2016-06-01 13:57 | PN ---
Progress Note - Progress Note SOAP: Subjective: Pt is doing well. Pain is controlled. She denies CP or SOB. Objective: PE- General- 46 y/o F in NAD lying comfortably in bed RLE- dressing c/d/i, edema improved, +f/e ankle and MTPs, NVI Vital Signs Temp Pulse Resp BP Pulse Ox 98.3 F 73 16 132/55 97 06/01/16 07:41 06/01/16 07:41 06/01/16 10:55 06/01/16 07:41 06/01/16 08:18 Assessment: S/P Right tibia ORIF Plan: Cont NWB RLE May do AROM/PROM and gentle strengthening of the ankle Will cont to follow
[2016-06-01] MEDS: Oxybutynin TAB* 5 MG PO PRN (20:34)
[2016-06-01] MEDS: Trimethobenzamide CAP* 300 MG PO PRN (20:35)
[2016-06-01] MEDS: ALPRAZolam TAB* 0.5 MG PO PRN (20:35)
[2016-06-01] MEDS: Senna TAB PO SCH (20:36)
[2016-06-02] MEDS: Heparin VIAL(*) 5000 UNITS/ML VIAL (FIVE THOUSAND) SUBCUT SCH ×3 (05:41→21:01)
[2016-06-02] MEDS: Metoclopramide TAB* 10 MG PO SCH ×4 (07:32→21:00)
[2016-06-02] MEDS: Multivitamins/Minerals TAB PO SCH (08:55)
[2016-06-02] MEDS: Ferrous Sulfate TAB* 325 MG PO SCH ×2 (08:55→21:00)
[2016-06-02] MEDS: Sertraline* 100 MG TAB PO SCH (08:59)
[2016-06-02] MEDS: oxyCODONE SR TAB(*) 20 MG TAB.SR PO SCH ×2 (08:59→20:58)
[2016-06-02] MEDS: DOXYcycline CAP(*) 100 MG PO SCH ×3 (09:00→18:18)
[2016-06-02] MEDS ORDERED: oxyCODONE TAB* 5 MG TAB PO PRN (15:15)
[2016-06-02] MEDS: Oxybutynin TAB* 5 MG PO PRN (15:28)
[2016-06-02] MEDS: ALPRAZolam TAB* 0.5 MG PO PRN (20:59)
[2016-06-02] MEDS: Trimethobenzamide CAP* 300 MG PO PRN (21:01)
[2016-06-02] MEDS: Senna TAB PO SCH (21:01)
[2016-06-03] MEDS: Heparin VIAL(*) 5000 UNITS/ML VIAL (FIVE THOUSAND) SUBCUT SCH ×3 (05:58→22:14)
[2016-06-03] MEDS: Metoclopramide TAB* 10 MG PO SCH ×4 (07:43→22:14)
[2016-06-03] MEDS: Ferrous Sulfate TAB* 325 MG PO SCH ×2 (09:15→22:14)
[2016-06-03] MEDS: Multivitamins/Minerals TAB PO SCH (09:15)
[2016-06-03] MEDS: DOXYcycline CAP(*) 100 MG PO SCH ×3 (09:17→17:49)
[2016-06-03] MEDS: oxyCODONE SR TAB(*) 20 MG TAB.SR PO SCH ×2 (09:18→22:13)
[2016-06-03] MEDS: Sertraline* 100 MG TAB PO SCH (09:18)
--- NOTE | 2016-06-03 10:20 | PN ---
Progress Note - Progress Note SOAP: Subjective: [Pt was seen this morning while lying in bed. Pt states that she is doing very well. States that she is having no pain currently. Pt denies any SOB, Chest pain or calf pain. ] Objective: [General: Pt is alert, awake and oriented. In no acute distress. MSK:RLE: pt is able to wiggle toes. Neurovascularly intact in lower extremity. 2 + DP pulse. ] Vital Signs Temp 98.2 F 06/03/16 07:33 Pulse 74 06/03/16 07:33 Resp 18 06/03/16 11:17 BP 138/61 06/03/16 07:33 Pulse Ox 97 06/03/16 08:00 Intake & Output 06/02/16 06/03/16 06/03/16 18:59 06:59 18:59 Intake Total 480 1240 120 Output Total 1200 Balance -720 1240 120 Weight 585 lb 4.8 oz Intake: Oral 480 1240 120 Output: Golden 1200 Other: Estimated Void Large Date of Last Bowel 06/02/16 Movement # Bowel Movements 1 1 Estimated Stool Amount Small Small # Voids 1 Assessment: [S/P R ankle ORIF ] Plan: [Continue to wait for placement Continue to progress with PT/OT Continue current management per hospitalists ]
[2016-06-03] MEDS: Trimethobenzamide CAP* 300 MG PO PRN (22:13)
[2016-06-03] MEDS: Senna TAB PO SCH (22:14)
[2016-06-03] MEDS: Ergocalciferol CAP* 50000 UNIT PO SCH (22:14)
[2016-06-03] MEDS: ALPRAZolam TAB* 0.5 MG PO PRN (23:39)
--- NOTE | 2016-06-04 03:42 | CONS ---
PSYCHIATRIC CONSULTATION UPDATE: DATE OF CONSULT: 06/03/16 DATE OF DICTATION: 06/03/16 IDENTIFYING DATA: Kim Anthony is a 46-year-old female with a history of depression and anxiety. Psychiatric consultation is requested for optimization of her pharmacologic regimen for depression and anxiety and guidance on any other treatment modalities. HISTORY OF PRESENT ILLNESS UPDATE: (With reference to psychiatric consultation of 04/29/16). Kim reports "doing fine" on the higher dose of Zoloft. She denies subjective depression or inappropriate anxiety. She reports "okay mood" with "normal" mood lability and tearfulness at times. She reports feeling "hopeful" about the future. She denies full anhedonia, but notes that things are restricted here. She denied any wishes and reports she is feeling very good about being alive. As to anxiety, she only notes upsurges at times. She does feel like she relies on Xanax for it and was open to hearing about some drawbacks with that medication and also open to trying to get by with lower doses. She denied general anxiety themes or any panic or obsessional themes. She reported optimism about the treatment program and appreciation for the overall care she is getting. MENTAL STATUS EXAMINATION: Morbidly obese, middle-aged, female who is well-kempt with good hygiene in hospital scrub clothing. She has normal psychomotor activity, although she is hypokinetic because of her body habitus. She makes good eye contact. She is cooperative and pleasant. Speech is spontaneous and unpressured. Mood is described as "okay." Affect is stable and euthymic. Thought process is coherent. Thought Content: Negative for suicidal, homicidal, or paranoid ideations. Sensorium is clear. She is alert and oriented x3. Insight and judgment are good and impulse control is currently intact. Refer to the consultation of April 29 for details of the patient's prior social, medical, and psychiatric history. UPDATED IMPRESSION: A 46-year-old female with history of depression and anxiety , both of which are well-regulated and subclinical at this time. It has been appropriate to optimize the dose of SSRI and also to seek to reduce the patient's reliance on benzodiazepines. DIAGNOSES: Major depressive disorder, in remission; anxiety state, not otherwise specified. RECOMMENDATIONS: Continue Zoloft 200 mg a day. Attempt to lower Xanax dose starting by reducing it to 0.5 mg q.8 hours p.r.n. anxiety and considering further incremental reduction. Consider additional therapeutic modalities such as psychological counseling. Thank you for the opportunity to participate in Ms. Anthony's care. I will follow her routinely at intervals of approximately 1 week, but please contact me with any questions or concerns. [id number]/[facility] #: [id number] MTDD
[2016-06-04] MEDS: Heparin VIAL(*) 5000 UNITS/ML VIAL (FIVE THOUSAND) SUBCUT SCH ×3 (06:40→22:06)
[2016-06-04] MEDS: Metoclopramide TAB* 10 MG PO SCH ×4 (07:38→20:59)
[2016-06-04] MEDS: Multivitamins/Minerals TAB PO SCH (09:47)
[2016-06-04] MEDS: oxyCODONE SR TAB(*) 20 MG TAB.SR PO SCH ×2 (09:52→22:06)
[2016-06-04] MEDS: DOXYcycline CAP(*) 100 MG PO SCH ×3 (09:52→17:41)
[2016-06-04] MEDS: Sertraline* 100 MG TAB PO SCH (09:52)
[2016-06-04] MEDS: Ferrous Sulfate TAB* 325 MG PO SCH ×2 (09:53→20:59)
[2016-06-04] MEDS: Senna TAB PO SCH (21:00)
[2016-06-04] MEDS: Trimethobenzamide CAP* 300 MG PO PRN (22:07)
[2016-06-04] MEDS: ALPRAZolam TAB* 0.5 MG PO PRN (22:07)
[2016-06-05] MEDS: Heparin VIAL(*) 5000 UNITS/ML VIAL (FIVE THOUSAND) SUBCUT SCH ×3 (06:11→22:01)
[2016-06-05] MEDS: Metoclopramide TAB* 10 MG PO SCH ×4 (07:57→20:09)
[2016-06-05] MEDS: Multivitamins/Minerals TAB PO SCH (08:14)
[2016-06-05] MEDS: Ferrous Sulfate TAB* 325 MG PO SCH (08:14)
[2016-06-05] MEDS: DOXYcycline CAP(*) 100 MG PO SCH ×3 (09:17→17:45)
[2016-06-05] MEDS: oxyCODONE SR TAB(*) 20 MG TAB.SR PO SCH (09:17)
[2016-06-05] MEDS: Sertraline* 100 MG TAB PO SCH (09:18)
--- NOTE | 2016-06-05 13:30 | PN ---
Progress Note - Progress Note SOAP: Subjective: Pt is doing well. Her pain is well controlled. She denies CP, SOB, fever or chills. Objective: PE: General- 46 y/o F in NAD lying comfortably in bed, in good spirits today RLE- dressing c/d/i, edema of ankle has improved, calf soft nontender, +f/e at ankle and MTPs, NVI Vital Signs Temp Pulse Resp BP Pulse Ox 97.9 F 73 18 133/61 97 06/05/16 10:28 06/05/16 10:28 06/05/16 11:17 06/05/16 10:28 06/05/16 10:28 Assessment: 46 y/o F s/p right tibia ORIF Plan: NWB RLE May do AROM/PROM and gentle strengthening of ankle Will continue to follow
--- NOTE | 2016-06-05 14:36 | PN ---
Subjective Date of Service: 06/05/16 Interval History: C/O pain L knee, hasn't used oxycodone in over 30 days. Family History: Unchanged from Admission Social History: Unchanged from Admission Past Medical History: Unchanged from Admission Objective Active Medications: Acetaminophen (Tylenol Tab*) 650 mg PO Q4H PRN PRN Reason: FEVER/PAIN Acetaminophen (Tylenol Tab*) 650 mg PO TID [facility] Alprazolam (Xanax Tab*) 1 mg PO BID PRN PRN Reason: ANXIETY Last Admin: 06/04/16 22:07 Dose: 1 mg Diphenhydramine HCl (Benadryl Po*) 25 mg PO Q6H PRN PRN Reason: ITCHY Docusate Sodium (Colace Cap*) 100 mg PO BID PRN PRN Reason: CONSTIPATION Doxycycline Hyclate (Vibramycin Cap(*)) 100 mg PO 0900,1300,1800 [facility] Last Admin: 06/05/16 13:25 Dose: 100 mg Ergocalciferol (Drisdol Cap*) 50,000 unit PO Q7D [facility] Stop: 07/22/16 20:01 Last Admin: 06/03/16 22:14 Dose: 50,000 unit Ferrous Sulfate (Ferrous Sulfate Tab*) 325 mg PO DAILY [facility] Heparin Sodium (Porcine) (Heparin Vial(*)) 5,000 units SUBCUT Q8HR [facility] Last Admin: 06/05/16 13:25 Dose: 5,000 units Metoclopramide HCl (Reglan Tab*) 10 mg PO ACHS [facility] Last Admin: 06/05/16 11:19 Dose: 10 mg Multivitamins/Minerals (Theragran/Minerals Tab*) 1 tab PO DAILY [facility] Last Admin: 06/05/16 08:14 Dose: Not Given Oxybutynin Chloride (Ditropan Tab*) 5 mg PO BID PRN PRN Reason: BLADDER SPASMS Last Admin: 06/02/16 15:28 Dose: 5 mg Oxycodone HCl (Roxycodone Tab*) 10 mg PO Q4H PRN PRN Reason: PAIN Oxycodone HCl (Oxycontin(*)) 10 mg PO 0800,1600,2300 [facility] Polyethylene Glycol/Electrolytes (Miralax*) 17 gm PO DAILY PRN PRN Reason: CONSTIPATION Prochlorperazine (Compazine Tab*) 10 mg PO Q6H PRN PRN Reason: NAUSEA Last Admin: 05/30/16 18:46 Dose: 10 mg Senna (Senokot Tab*) 1 tab PO BEDTIME [facility] Last Admin: 06/04/16 21:00 Dose: Not Given Sertraline HCl (Zoloft*) 200 mg PO DAILY [facility] Last Admin: 06/05/16 09:18 Dose: 200 mg Trimethobenzamide HCl (Tigan Cap*) 300 mg PO Q8H PRN PRN Reason: NAUSEA Last Admin: 06/04/16 22:07 Dose: 300 mg Vital Signs 06/04/16 06/04/16 06/04/16 16:13 16:51 22:05 Temperature Pulse Rate Respiratory 16 Rate Blood Pressure (mmHg) O2 Sat by Pulse 99 99 Oximetry 06/04/16 06/04/16 06/05/16 22:06 22:07 00:06 Temperature Pulse Rate Respiratory 16 16 16 Rate Blood Pressure (mmHg) O2 Sat by Pulse Oximetry 06/05/16 06/05/16 06/05/16 08:00 09:17 10:28 Temperature 97.9 F Pulse Rate 73 Respiratory 16 16 20 Rate Blood Pressure 133/61 (mmHg) O2 Sat by Pulse 97 Oximetry 06/05/16 11:17 Temperature Pulse Rate Respiratory 18 Rate Blood Pressure (mmHg) O2 Sat by Pulse Oximetry Oxygen Devices in Use Now: Nasal Cannula - 2L-93% Appearance: Alert, partly up in bed. In good spirits. Looks comfortable. Neurological: Alert and Oriented x 3, NL Sensation Result Diagrams: 05/29/16 07:10 05/29/16 07:10 Assess/Plan/Problems-Billing Ms. Anthony is a 45 yo female with a PMHx of super morbid obesity with BMI 105 and anxiety/depression who originally presented with R lower leg fracture s/p ORIF 03/17 complicated by wound dehiscence and deep infection s/p multiple return trips to OR, now with wound vac who continues to be NWB on right. - Patient Problems (1) Fracture of right tibia and fibula Current Visit: Yes Status: Acute Code(s): S82.201A - UNSP FRACTURE OF SHAFT OF RIGHT TIBIA, INIT FOR CLOS FX; S82.401A - UNSP FRACTURE OF SHAFT OF RIGHT FIBULA, INIT FOR CLOS FX SNOMED Code(s): 70595122 Comment: - S/P ORIF right tib-fib 03/17/16. S/P wound dehiscence and multiple trips to OR for debridement. - Continue non-weight bearing, will start partial WB in 07/02. - Continue Doxycyline. Reduce oxycodone SR to 10 mg q 8 hr, consider reducing to 10 mg bid in about a week. (2) Morbid obesity with BMI of 70 and over, adult Current Visit: Yes Status: Chronic Code(s): E66.9 - OBESITY, UNSPECIFIED; Z68.45 - BODY MASS INDEX (BMI) 70 OR GREATER, ADULT SNOMED Code(s): 523742027 Comment: - Patient has lost 60lbs since admission and is motivated to continue diet. On MVI, vit D3, FeSO4. (3) Anemia Current Visit: No Status: Chronic Code(s): D64.9 - ANEMIA, UNSPECIFIED SNOMED Code(s): 416718235 Comment: Appears to be anemia of chronic disease and acute blood loss anemia (per ortho, she lost quite a lot of blood during initial surgery). Reduce Ferrous sulfate to one daily. (4) Arthritis Current Visit: Yes Status: Acute Code(s): M19.90 - UNSPECIFIED OSTEOARTHRITIS, UNSPECIFIED SITE SNOMED Code(s): 6930832 Comment: Scheduled APAP 650 mg tid for L knee pain. Status and Disposition: Swing status.
[2016-06-05] MEDS ORDERED: oxyCODONE SR TAB(*) 10 MG TAB.SR PO SCH (15:00)
[2016-06-05] MEDS: Senna TAB PO SCH (20:08)
[2016-06-05] MEDS: Acetaminophen TAB* 325 MG PO SCH (20:10)
[2016-06-05] MEDS: ALPRAZolam TAB* 0.5 MG PO PRN (22:00)
[2016-06-05] MEDS: oxyCODONE SR TAB(*) 10 MG TAB.SR PO SCH (22:01)
[2016-06-06] MEDS: Heparin VIAL(*) 5000 UNITS/ML VIAL (FIVE THOUSAND) SUBCUT SCH ×3 (06:19→22:21)
[2016-06-06 06:54] LABS: BUN/Creatinine Ratio 15.6 (8-20); Calcium 8.9 mg/dL (8.6-10.3); EGFR African American 69.5 (>60)
[2016-06-06 07:20] LABS: TSH (Thyroid Stimulating Horm) 8.48 mcIU/mL (0.34-5.60)
[2016-06-06] MEDS: Multivitamins/Minerals TAB PO SCH (08:09)
[2016-06-06] MEDS: Sertraline* 100 MG TAB PO SCH (08:09)
[2016-06-06] MEDS: Ferrous Sulfate TAB* 325 MG PO SCH (08:09)
[2016-06-06] MEDS: Metoclopramide TAB* 10 MG PO SCH ×4 (08:10→20:16)
[2016-06-06] MEDS: Acetaminophen TAB* 325 MG PO SCH ×3 (08:10→20:15)
[2016-06-06] MEDS: oxyCODONE SR TAB(*) 10 MG TAB.SR PO SCH ×3 (08:14→22:20)
[2016-06-06] MEDS: DOXYcycline CAP(*) 100 MG PO SCH ×3 (08:48→16:56)
--- NOTE | 2016-06-06 10:40 | PN ---
Progress Note - Progress Note SOAP: Subjective: Pt is doing well. Lying comfortably in bed. Pain is well controlled. She denies CP, SOB, fever or chills. Objective: PE-46 y/o WDWN F in NAD RLE-dressing c/d/i, calf soft nontender, full ankle ROM, NVI Vital Signs Temp Pulse Resp BP Pulse Ox 97.4 F 70 16 137/63 95 06/06/16 08:05 06/06/16 08:05 06/06/16 08:14 06/06/16 08:05 06/06/16 08:05 Laboratory Results - last 24 hr 06/06/16 06:25 Sodium 135 Potassium 4.0 Chloride 101 Carbon Dioxide 29 Anion Gap 5 BUN 17 Creatinine 1.09 H Est GFR ( Amer) 69.5 Est GFR (Non-Af Amer) 54.0 BUN/Creatinine Ratio 15.6 Glucose 91 Calcium 8.9 TSH 8.48 H Assessment: S/P right tibia ORIF Plan: NWB RLE May do AROM/PROM and gentle strengthening Will stop dressing once wound is well healed Will cont to follow Continue current management per hospitalists
[2016-06-06] MEDS: Senna TAB PO SCH (20:16)
[2016-06-06] MEDS: ALPRAZolam TAB* 0.5 MG PO PRN (22:20)
[2016-06-07] MEDS: Heparin VIAL(*) 5000 UNITS/ML VIAL (FIVE THOUSAND) SUBCUT SCH ×3 (06:14→22:33)
[2016-06-07] MEDS: DOXYcycline CAP(*) 100 MG PO SCH ×3 (08:34→17:44)
[2016-06-07] MEDS: Ferrous Sulfate TAB* 325 MG PO SCH (08:34)
[2016-06-07] MEDS: Metoclopramide TAB* 10 MG PO SCH ×4 (08:35→20:23)
[2016-06-07] MEDS: Multivitamins/Minerals TAB PO SCH (08:35)
[2016-06-07] MEDS: Sertraline* 100 MG TAB PO SCH (08:35)
[2016-06-07] MEDS: Acetaminophen TAB* 325 MG PO SCH ×3 (08:35→20:24)
[2016-06-07] MEDS: oxyCODONE SR TAB(*) 10 MG TAB.SR PO SCH ×3 (08:35→22:32)
[2016-06-07] MEDS: Senna TAB PO SCH (20:26)
[2016-06-07] MEDS: ALPRAZolam TAB* 0.5 MG PO PRN (22:32)
[2016-06-08] MEDS: Heparin VIAL(*) 5000 UNITS/ML VIAL (FIVE THOUSAND) SUBCUT SCH ×3 (06:10→21:42)
[2016-06-08] MEDS: Metoclopramide TAB* 10 MG PO SCH ×4 (08:31→22:32)
[2016-06-08] MEDS: Acetaminophen TAB* 325 MG PO SCH ×3 (09:16→21:40)
[2016-06-08] MEDS: DOXYcycline CAP(*) 100 MG PO SCH ×3 (09:16→18:06)
[2016-06-08] MEDS: Multivitamins/Minerals TAB PO SCH (09:16)
[2016-06-08] MEDS: oxyCODONE SR TAB(*) 10 MG TAB.SR PO SCH ×3 (09:16→22:33)
[2016-06-08] MEDS: Ferrous Sulfate TAB* 325 MG PO SCH (09:17)
[2016-06-08] MEDS: Sertraline* 100 MG TAB PO SCH (09:17)
--- NOTE | 2016-06-08 21:17 | PRO ---
DATE OF PROCEDURE: 05/13/16 - ROOM #342 DATE OF : 70 SURGEON: Geoff Connelly MD PRE-OP DIAGNOSIS: Right medial ankle wound dehiscence. POST-OP DIAGNOSIS: Right medial ankle wound dehiscence. PROCEDURE PERFORMED: VAC dressing change. DESCRIPTION OF PROCEDURE: The patient had the previous VAC dressing removed and the wound was sterilized with a prep. We then dried the wound and applied a new VAC dressing longitudinally along the medial hindfoot wound, sealed with the Iodoform bandage. A fresh splint was applied. The patient tolerated the procedure well. [id number]/[facility] #: [id number] MTDD
[2016-06-08] MEDS: ALPRAZolam TAB* 0.5 MG PO PRN (21:39)
[2016-06-08] MEDS: Senna TAB PO SCH (21:48)
[2016-06-09] MEDS: Heparin VIAL(*) 5000 UNITS/ML VIAL (FIVE THOUSAND) SUBCUT SCH ×3 (05:44→21:22)
[2016-06-09] MEDS: Metoclopramide TAB* 10 MG PO SCH ×4 (07:35→21:48)
[2016-06-09] MEDS: Multivitamins/Minerals TAB PO SCH (09:01)
[2016-06-09] MEDS: Acetaminophen TAB* 325 MG PO SCH ×3 (09:01→21:22)
[2016-06-09] MEDS: oxyCODONE SR TAB(*) 10 MG TAB.SR PO SCH ×2 (09:02→21:21)
[2016-06-09] MEDS: Ferrous Sulfate TAB* 325 MG PO SCH (09:02)
[2016-06-09] MEDS: DOXYcycline CAP(*) 100 MG PO SCH ×3 (09:02→17:47)
[2016-06-09] MEDS: Sertraline* 100 MG TAB PO SCH (09:03)
[2016-06-09] MEDS: Senna TAB PO SCH (21:16)
[2016-06-09] MEDS: ALPRAZolam TAB* 0.5 MG PO PRN (21:21)
[2016-06-09] MEDS: Oxybutynin TAB* 5 MG PO PRN (21:22)
[2016-06-10] MEDS: Heparin VIAL(*) 5000 UNITS/ML VIAL (FIVE THOUSAND) SUBCUT SCH ×3 (05:57→21:54)
[2016-06-10] MEDS: Metoclopramide TAB* 10 MG PO SCH ×4 (08:17→20:16)
[2016-06-10] MEDS: ALPRAZolam TAB* 0.5 MG PO PRN ×2 (09:39→20:17)
[2016-06-10] MEDS: oxyCODONE SR TAB(*) 10 MG TAB.SR PO SCH ×2 (09:40→20:16)
[2016-06-10] MEDS: Acetaminophen TAB* 325 MG PO SCH ×3 (09:41→20:16)
[2016-06-10] MEDS: DOXYcycline CAP(*) 100 MG PO SCH ×3 (09:45→18:07)
[2016-06-10] MEDS: Ferrous Sulfate TAB* 325 MG PO SCH (10:24)
[2016-06-10] MEDS: Multivitamins/Minerals TAB PO SCH (10:24)
[2016-06-10] MEDS: Sertraline* 100 MG TAB PO SCH (10:26)
[2016-06-10] MEDS: Ergocalciferol CAP* 50000 UNIT PO SCH (20:17)
[2016-06-10] MEDS: Senna TAB PO SCH (20:18)
[2016-06-11] MEDS: ALPRAZolam TAB* 0.5 MG PO PRN ×2 (06:34→21:33)
[2016-06-11] MEDS: Heparin VIAL(*) 5000 UNITS/ML VIAL (FIVE THOUSAND) SUBCUT SCH ×3 (06:43→21:30)
[2016-06-11] MEDS: Metoclopramide TAB* 10 MG PO SCH ×4 (08:52→21:35)
[2016-06-11] MEDS: DOXYcycline CAP(*) 100 MG PO SCH ×3 (09:03→17:58)
[2016-06-11] MEDS: oxyCODONE SR TAB(*) 10 MG TAB.SR PO SCH ×2 (09:03→21:36)
[2016-06-11] MEDS: Sertraline* 100 MG TAB PO SCH (09:04)
[2016-06-11] MEDS: Acetaminophen TAB* 325 MG PO SCH ×3 (09:04→21:37)
[2016-06-11] MEDS: Ferrous Sulfate TAB* 325 MG PO SCH (09:04)
[2016-06-11] MEDS: Multivitamins/Minerals TAB PO SCH (09:04)
[2016-06-11] MEDS: Oxybutynin TAB* 5 MG PO PRN ×2 (09:04→21:34)
--- NOTE | 2016-06-11 10:50 | PN ---
Progress Note - Progress Note SOAP: Subjective: S/P right tibia ORIF. Doing well, no pain. Pt went for CT scan today to assess fx healing, awaiting results. Objective: Vital Signs: Temp Pulse Resp BP Pulse Ox 98.6 F 76 18 128/58 99 06/10/16 11:41 06/10/16 11:32 06/11/16 09:03 06/10/16 11:32 06/11/16 03:24 Gen: A & O x3, NAD at rest in bed RLE: Incision well healed. Calf swelling significantly improved. +f/e at ankle and MTPs, N/V intact Assessment: S/P right tibia ORIF Plan: Tilt table to start 06/14/16. Start 10-20% of weight, increase by 10% weekly. Continue AROM/RROM right ankle with PT Will continue to follow
--- NOTE | 2016-06-11 12:33 | RAD ---
Indication: Evaluate lower extremity fracture. CT of the tibia and fibula was obtained in the axial plane. Sagittal and coronal reconstructed images were obtained. Again noted is a comminuted fracture of the distal tibia. There is internal fixation with multiple plate and screws. Alignment of the fracture fragments appear to be satisfactory. There may be partial bony bridging noted. No other fractures are identified. Dependent edema is noted. IMPRESSION: HEALING FRACTURE OF THE DISTAL TIBIA WITH PARTIAL BONY BRIDGING. DEPENDENT EDEMA IS NOTED. INTERNAL FIXATION WITH A PLATE AND SCREWS ARE NOTED.
[2016-06-11] MEDS: Senna TAB PO SCH ×2 (21:37→21:45)
[2016-06-12] MEDS: Heparin VIAL(*) 5000 UNITS/ML VIAL (FIVE THOUSAND) SUBCUT SCH ×3 (05:57→22:11)
[2016-06-12] MEDS: Metoclopramide TAB* 10 MG PO SCH ×4 (07:50→22:10)
[2016-06-12] MEDS: Multivitamins/Minerals TAB PO SCH (08:47)
[2016-06-12] MEDS: Sertraline* 100 MG TAB PO SCH (08:48)
[2016-06-12] MEDS: oxyCODONE SR TAB(*) 10 MG TAB.SR PO SCH ×2 (08:48→22:10)
[2016-06-12] MEDS: Ferrous Sulfate TAB* 325 MG PO SCH (08:48)
[2016-06-12] MEDS: Acetaminophen TAB* 325 MG PO SCH ×3 (08:48→22:10)
[2016-06-12] MEDS: DOXYcycline CAP(*) 100 MG PO SCH ×3 (08:51→17:42)
[2016-06-12] MEDS: Oxybutynin TAB* 5 MG PO PRN (22:10)
[2016-06-12] MEDS: ALPRAZolam TAB* 0.5 MG PO PRN (22:12)
[2016-06-12] MEDS: Senna TAB PO SCH (22:13)
[2016-06-13] MEDS: Heparin VIAL(*) 5000 UNITS/ML VIAL (FIVE THOUSAND) SUBCUT SCH ×3 (05:50→22:01)
[2016-06-13] MEDS: Metoclopramide TAB* 10 MG PO SCH ×4 (07:48→20:43)
[2016-06-13] MEDS: Acetaminophen TAB* 325 MG PO SCH ×3 (09:05→20:43)
[2016-06-13] MEDS: Sertraline* 100 MG TAB PO SCH (09:05)
[2016-06-13] MEDS: oxyCODONE SR TAB(*) 10 MG TAB.SR PO SCH ×2 (09:05→20:43)
[2016-06-13] MEDS: DOXYcycline CAP(*) 100 MG PO SCH ×3 (09:05→18:15)
[2016-06-13] MEDS: Ferrous Sulfate TAB* 325 MG PO SCH (09:05)
[2016-06-13] MEDS: Multivitamins/Minerals TAB PO SCH (09:05)
[2016-06-13] MEDS: oxyCODONE TAB* 5 MG TAB PO PRN (17:22)
--- NOTE | 2016-06-13 18:40 | PN ---
Subjective Date of Service: 06/13/16 Interval History: HOSPITALIST PROGRESS NOTE Patient seen and examined at bedside. Her only complaint is left knee pain which has hindered her mobility. Denies right ankle pain, tolerating diet well, no more N/V. Very proud of her accomplishments so far - has lost >100lbs this hospital stay. Family History: Unchanged from Admission Social History: Unchanged from Admission Past Medical History: Unchanged from Admission Objective Active Medications: Acetaminophen (Tylenol Tab*) 650 mg PO Q4H PRN PRN Reason: FEVER/PAIN Acetaminophen (Tylenol Tab*) 650 mg PO TID [facility] Last Admin: 06/13/16 13:03 Dose: 650 mg Alprazolam (Xanax Tab*) 1 mg PO BID PRN PRN Reason: ANXIETY Last Admin: 06/12/16 22:12 Dose: 1 mg Diphenhydramine HCl (Benadryl Po*) 25 mg PO Q6H PRN PRN Reason: ITCHY Docusate Sodium (Colace Cap*) 100 mg PO BID PRN PRN Reason: CONSTIPATION Last Admin: 06/13/16 09:05 Dose: 100 mg Doxycycline Hyclate (Vibramycin Cap(*)) 100 mg PO 0900,1300,1800 [facility] Last Admin: 06/13/16 18:15 Dose: 100 mg Ergocalciferol (Drisdol Cap*) 50,000 unit PO Q7D [facility] Stop: 07/22/16 20:01 Last Admin: 06/10/16 20:17 Dose: 50,000 unit Ferrous Sulfate (Ferrous Sulfate Tab*) 325 mg PO DAILY [facility] Last Admin: 06/13/16 09:05 Dose: 325 mg Heparin Sodium (Porcine) (Heparin Vial(*)) 5,000 units SUBCUT Q8HR [facility] Last Admin: 06/13/16 13:04 Dose: 5,000 units Metoclopramide HCl (Reglan Tab*) 10 mg PO ACHS [facility] Last Admin: 06/13/16 16:35 Dose: 10 mg Multivitamins/Minerals (Theragran/Minerals Tab*) 1 tab PO DAILY [facility] Last Admin: 06/13/16 09:05 Dose: 1 tab Oxybutynin Chloride (Ditropan Tab*) 5 mg PO BID PRN PRN Reason: BLADDER SPASMS Last Admin: 06/12/16 22:10 Dose: 5 mg Oxycodone HCl (Oxycontin(*)) 10 mg PO BID [facility] Last Admin: 06/13/16 09:05 Dose: 10 mg Oxycodone HCl (Roxycodone Tab*) 5 mg PO Q4H PRN PRN Reason: PAIN Last Admin: 06/13/16 17:22 Dose: 5 mg Polyethylene Glycol/Electrolytes (Miralax*) 17 gm PO DAILY PRN PRN Reason: CONSTIPATION Prochlorperazine (Compazine Tab*) 10 mg PO Q6H PRN PRN Reason: NAUSEA Last Admin: 05/30/16 18:46 Dose: 10 mg Senna (Senokot Tab*) 1 tab PO BEDTIME [facility] Last Admin: 06/12/16 22:13 Dose: Not Given Sertraline HCl (Zoloft*) 200 mg PO DAILY [facility] Last Admin: 06/13/16 09:05 Dose: 200 mg Trimethobenzamide HCl (Tigan Cap*) 300 mg PO Q8H PRN PRN Reason: NAUSEA Last Admin: 06/04/16 22:07 Dose: 300 mg Vital Signs 06/13/16 06/13/16 06/13/16 09:05 11:05 12:02 Temperature 98.2 F Pulse Rate 74 Respiratory 16 18 18 Rate Blood Pressure 145/64 (mmHg) O2 Sat by Pulse 97 Oximetry Oxygen Devices in Use Now: Nasal Cannula - 2L-93% Appearance: Pleasant lady sitting up in bed in NAD. Eyes: No Scleral Icterus Ears/Nose/Mouth/Throat: Mucous Membranes Moist Neck: Trachea Midline Respiratory: Symmetrical Chest Expansion and Respiratory Effort, Clear to Auscultation Cardiovascular: RRR - Normal S1 and S2 Extremities: - - Well healed right ankle incision. Wearing orthopedic shoes and braces Neurological: Alert and Oriented x 3, NL Muscle Strength and Tone Nutrition: Taking PO's Result Diagrams: 05/29/16 07:10 06/06/16 06:25 Assess/Plan/Problems-Billing Ms. Anthony is a 45 yo female with a PMHx of super morbid obesity with BMI 105 and anxiety/depression who originally presented with R lower leg fracture s/p ORIF 03/17 complicated by wound dehiscence and deep infection s/p multiple return trips to OR, now with wound vac who continues to be NWB on right. - Patient Problems (1) Fracture of right tibia and fibula Comment: - S/P ORIF right tib-fib 03/17/16. S/P wound dehiscence and multiple trips to OR for debridement. - To start Tilt table on 06/14/16. Start with 10-20% of weight, increase 10% weekly as per Ortho recommendation. - Continue Doxycyline. - Continue oxycodone SR 10 mg BID. (2) Morbid obesity with BMI of 70 and over, adult Comment: - Patient has lost 100lbs since admission and is motivated to continue diet. On MVI, vit D3, FeSO4. (3) Depression Comment: - Continue Zoloft 200mg daily. (4) TSH elevation Comment: - Check Free T4 and T3. (5) DVT prophylaxis Comment: - SQ Heparin. (6) Full code status Status and Disposition: Swing status.
[2016-06-13] MEDS: Senna TAB PO SCH (19:58)
[2016-06-13] MEDS: Oxybutynin TAB* 5 MG PO PRN (20:43)
[2016-06-13] MEDS: ALPRAZolam TAB* 0.5 MG PO PRN (22:00)
[2016-06-14] MEDS: Heparin VIAL(*) 5000 UNITS/ML VIAL (FIVE THOUSAND) SUBCUT SCH ×3 (06:02→21:56)
--- NOTE | 2016-06-14 07:40 | PN ---
Progress Note - Progress Note SOAP: Subjective: [] Patient seen at bedside. Denies significant ankle pain. Continues to complain of left knee pain, asking if cortisone injection would be indicated. Objective: [] Right ankle incision medially with small area of wet necrosis mid incision. No evidence of infection. Excellent PF and DF. Assessment: [] s/p ORIF right tibia, CT reveals partial bony healing I+D x2 secondary to infection remains N/V intact left knee pain Plan: [] Continue with current plan, PT/OT, Tilt table arriving this week, 10%-20% weight bearing, increasing 10% each week Will discuss c/o knee pain with Nicole Banegas PA-C as patient believes she is aware.
[2016-06-14] MEDS: Metoclopramide TAB* 10 MG PO SCH ×4 (08:43→20:57)
[2016-06-14] MEDS: Sertraline* 100 MG TAB PO SCH (08:44)
[2016-06-14] MEDS: oxyCODONE TAB* 5 MG TAB PO PRN ×2 (08:45→20:57)
[2016-06-14] MEDS: Acetaminophen TAB* 325 MG PO SCH ×3 (08:46→20:57)
[2016-06-14] MEDS: oxyCODONE SR TAB(*) 10 MG TAB.SR PO SCH ×2 (08:47→20:57)
[2016-06-14] MEDS: Multivitamins/Minerals TAB PO SCH (10:13)
[2016-06-14] MEDS: DOXYcycline CAP(*) 100 MG PO SCH ×3 (10:14→17:43)
[2016-06-14] MEDS: Ferrous Sulfate TAB* 325 MG PO SCH (10:14)
[2016-06-14] MEDS: ALPRAZolam TAB* 0.5 MG PO PRN ×2 (10:15→20:56)
--- NOTE | 2016-06-14 14:46 | RAD ---
INDICATION: Left knee pain. TECHNIQUE: 4 views of the left knee were obtained. The exam is limited. The patient was unable to be positioned for the standard images. FINDINGS: The bones are normal alignment. No fracture is seen. There is moderate to severe arthritic change in the medial compartment. IMPRESSION: MODERATE TO SEVERE ARTHRITIC CHANGE IN THE MEDIAL COMPARTMENT.
[2016-06-14] MEDS ORDERED: methylPREDNISolone ACETATE 80* 80 MG/ML 1 ML VIAL IM ONE (15:22)
[2016-06-14] MEDS ORDERED: Lidocaine 1% INJ* 10 MG/ML 30 ML SDV INJ ONE (15:23)
--- NOTE | 2016-06-14 16:07 | PN ---
Progress Note - Progress Note SOAP: Subjective: []Patient continuing to complain of left knee pain with motion in bed and at times when sitting at the edge of the bed. She would like to try an intra articular cortisone injection in the left knee. Consent form completed. Patient understands that she has advanced degenerative medial compartment arthritis. The cortisone injection may or may not help her symptoms. She may have steroid flare with increased knee pain before potential improvement. She elects to proceed. Objective: []No erythema or increased warmth of the left knee noted. She has point tenderness at the medial knee in the area of the joint line. Lesser tenderness is noted at the lateral joint line. Plain films of the left knee reveal advance degenerative changes with osteophyte formation medial compartment. Assessment: []Advanced arthritis left knee Recent ORIF right distal tibia Plan: []after obtaining signed consent, under sterile technique the lateral joint line was infiltrated with 4cc of 1 % plain lidocaine and 80mg of depomedrol without any complications. 25 guage needle utilized. She tolerated the injection well. Will continue to follow and evaluate for improvement.
[2016-06-14] MEDS: Oxybutynin TAB* 5 MG PO PRN (20:57)
[2016-06-14] MEDS: Senna TAB PO SCH (20:58)
[2016-06-15] MEDS: Heparin VIAL(*) 5000 UNITS/ML VIAL (FIVE THOUSAND) SUBCUT SCH ×3 (05:32→22:53)
--- NOTE | 2016-06-15 08:13 | PN ---
Progress Note - Progress Note SOAP: Subjective: []Patient seen at bedside. Had Depomedrol injection in left knee yesterday. Reports no significant relief in knee pain. Right ankle unchanged. Awaiting tilt table, possibly today. Objective: []Left knee: No warmth or erythema. Remains tender to palpation medially and laterally. Bilateral LE DF/PF. NVI bilaterally Assessment: []S/P ORIF right distal tibia Advanced DJD Left knee, s/p depo medrol injection 06/14 Plan: []Continue current OT/PT Monitor for left knee improvement.
[2016-06-15] MEDS: Acetaminophen TAB* 325 MG PO SCH ×3 (09:18→20:23)
[2016-06-15] MEDS: Sertraline* 100 MG TAB PO SCH (09:19)
[2016-06-15] MEDS: oxyCODONE SR TAB(*) 10 MG TAB.SR PO SCH ×2 (09:19→20:23)
[2016-06-15] MEDS: Metoclopramide TAB* 10 MG PO SCH ×4 (09:19→20:23)
[2016-06-15] MEDS: Ferrous Sulfate TAB* 325 MG PO SCH (10:27)
[2016-06-15] MEDS: Multivitamins/Minerals TAB PO SCH (10:27)
[2016-06-15] MEDS: DOXYcycline CAP(*) 100 MG PO SCH ×3 (10:32→18:19)
[2016-06-15] MEDS: ALPRAZolam TAB* 0.5 MG PO PRN (20:22)
[2016-06-15] MEDS: Oxybutynin TAB* 5 MG PO PRN (20:23)
[2016-06-15] MEDS: Senna TAB PO SCH (20:24)
[2016-06-16] MEDS: Heparin VIAL(*) 5000 UNITS/ML VIAL (FIVE THOUSAND) SUBCUT SCH ×3 (05:49→21:28)
[2016-06-16] MEDS: Metoclopramide TAB* 10 MG PO SCH ×4 (07:49→20:29)
--- NOTE | 2016-06-16 08:37 | PN ---
Progress Note - Progress Note SOAP: Subjective: []Patient seen at bedside today. No complaints of right ankle pain. She feels her left knee pain has improved slightly s/p cortisone injection. No new orthopedic complaints. Objective: Vital Signs Temp 98.6 F 06/15/16 08:18 Pulse 82 06/15/16 08:18 Resp 17 06/15/16 22:23 BP 138/62 06/15/16 08:18 Pulse Ox 96 06/15/16 16:00 Intake & Output 06/15/16 06/16/16 06/16/16 18:59 06:59 18:59 Intake Total 1240 440 Output Total 1650 2875 Balance -410 -2435 Weight 561 lb 11.2 oz Intake: Oral 1240 440 Output: Urine 1600 [place] 1650 1275 Other: # Bowel Movements 1 Estimated Stool Amount Medium Vital Signs Temp 98.6 F 06/15/16 08:18 Pulse 82 06/15/16 08:18 Resp 17 06/15/16 22:23 BP 138/62 06/15/16 08:18 Pulse Ox 96 06/15/16 16:00 Intake & Output 06/15/16 06/16/16 06/16/16 18:59 06:59 18:59 Intake Total 1240 440 Output Total 1650 2875 Balance -410 -2435 Weight 561 lb 11.2 oz Intake: Oral 1240 440 Output: Urine 1600 Golden 1650 1275 Other: # Bowel Movements 1 Estimated Stool Amount Medium []Right ankle wound healing well, no drainage, erythema or evidence of infection. Left knee, no warmth or erythema. Less tenderness at medial and lateral joint lines. neuro intact bilateral LE Assessment: []s/p ORIF right distal tibia with bony healing per recent CT scan s/p I+D for infected right ankle advanced DJD left knee, improvement s/p cortisone injection Plan: []Continue current Ortho care, will continue to follow loosely. Tilt table has arrived, will be utilized starting today.
[2016-06-16] MEDS: Ferrous Sulfate TAB* 325 MG PO SCH (09:31)
[2016-06-16] MEDS: Sertraline* 100 MG TAB PO SCH (09:31)
[2016-06-16] MEDS: Acetaminophen TAB* 325 MG PO SCH ×3 (09:32→20:28)
[2016-06-16] MEDS: ALPRAZolam TAB* 0.5 MG PO PRN ×2 (09:32→21:28)
[2016-06-16] MEDS: oxyCODONE/Acetamin 5/325 MG* TAB PO PRN ×2 (09:32→20:31)
[2016-06-16] MEDS: oxyCODONE SR TAB(*) 10 MG TAB.SR PO SCH ×2 (09:33→20:30)
[2016-06-16] MEDS: Multivitamins/Minerals TAB PO SCH (09:33)
[2016-06-16] MEDS: DOXYcycline CAP(*) 100 MG PO SCH ×3 (09:33→18:28)
[2016-06-16] MEDS: Oxybutynin TAB* 5 MG PO PRN (20:29)
[2016-06-16] MEDS: Senna TAB PO SCH (20:32)
[2016-06-17] MEDS: Heparin VIAL(*) 5000 UNITS/ML VIAL (FIVE THOUSAND) SUBCUT SCH ×3 (05:55→21:38)
[2016-06-17] MEDS: Metoclopramide TAB* 10 MG PO SCH ×4 (08:05→21:38)
[2016-06-17] MEDS: oxyCODONE/Acetamin 5/325 MG* TAB PO PRN (09:32)
[2016-06-17] MEDS: Multivitamins/Minerals TAB PO SCH (09:32)
[2016-06-17] MEDS: Acetaminophen TAB* 325 MG PO SCH ×3 (09:32→21:38)
[2016-06-17] MEDS: Sertraline* 100 MG TAB PO SCH (09:33)
[2016-06-17] MEDS: oxyCODONE SR TAB(*) 10 MG TAB.SR PO SCH ×2 (09:34→21:38)
[2016-06-17] MEDS: ALPRAZolam TAB* 0.5 MG PO PRN ×2 (09:34→21:37)
[2016-06-17] MEDS: Ferrous Sulfate TAB* 325 MG PO SCH (09:34)
[2016-06-17] MEDS: DOXYcycline CAP(*) 100 MG PO SCH ×3 (09:40→18:39)
[2016-06-17] MEDS: Oxybutynin TAB* 5 MG PO PRN (21:37)
[2016-06-17] MEDS: Ergocalciferol CAP* 50000 UNIT PO SCH (21:37)
[2016-06-17] MEDS: Senna TAB PO SCH (21:39)
[2016-06-18] MEDS: Heparin VIAL(*) 5000 UNITS/ML VIAL (FIVE THOUSAND) SUBCUT SCH ×3 (06:08→21:37)
[2016-06-18] MEDS: Metoclopramide TAB* 10 MG PO SCH ×4 (08:29→20:34)
[2016-06-18] MEDS: Acetaminophen TAB* 325 MG PO SCH ×3 (09:23→20:34)
[2016-06-18] MEDS: Ferrous Sulfate TAB* 325 MG PO SCH (09:23)
[2016-06-18] MEDS: ALPRAZolam TAB* 0.5 MG PO PRN ×2 (09:23→20:35)
[2016-06-18] MEDS: Multivitamins/Minerals TAB PO SCH (09:23)
[2016-06-18] MEDS: Sertraline* 100 MG TAB PO SCH (09:24)
[2016-06-18] MEDS: oxyCODONE SR TAB(*) 10 MG TAB.SR PO SCH ×2 (09:24→20:35)
[2016-06-18] MEDS: oxyCODONE/Acetamin 5/325 MG* TAB PO PRN (09:24)
[2016-06-18] MEDS: DOXYcycline CAP(*) 100 MG PO SCH ×3 (09:31→18:21)
--- NOTE | 2016-06-18 16:13 | PN ---
Progress Note - Progress Note SOAP: Subjective: Pt doing well today, states that she spent 20 min on tilt table at 20% WB. States that she had minimal pain in right ankle during that time. Continues to c /o pain in left knee. Did not see much relief with injection. Objective: Vitals: Temp Pulse Resp BP Pulse Ox 98.0 F 75 16 123/57 97 06/18/16 07:52 06/18/16 07:52 06/18/16 11:24 06/18/16 07:52 06/18/16 07:52 Gen: A & O x3, NAD in bed RLE: Incision well healed. Good ROM right ankle. N/V intact Assessment: S/P right tibia ORIF Plan: Continue tilt table for WB assistance. Continue PT/OT
[2016-06-18] MEDS: Oxybutynin TAB* 5 MG PO PRN (20:35)
[2016-06-18] MEDS: Senna TAB PO SCH (20:36)
[2016-06-19] MEDS: Heparin VIAL(*) 5000 UNITS/ML VIAL (FIVE THOUSAND) SUBCUT SCH ×3 (05:36→21:41)
[2016-06-19 07:01] LABS: Hematocrit 27 % (35-47); Hemoglobin 8.5 g/dl (12.0-16.0); Mean Corpuscular HGB Conc 32 g/dl (31-36); Mean Corpuscular Hemoglobin 26 pg (27-31); Mean Corpuscular Volume 82 fL (80-97); Mean Platelet Volume 8 um3 (7.4-10.4); Red Blood Count 3.26 10^6/ul (4.0-5.4); Red Cell Distribution Width 20 % (10.5-15); White Blood Count 6.4 10^3/ul (3.5-10.8)
[2016-06-19 07:06] LABS: BUN/Creatinine Ratio 27.6 (8-20); Calcium 9.2 mg/dL (8.6-10.3); EGFR African American 90.1 (>60); EGFR Non-African American 70.1 (>60); Potassium 3.9 mmol/L (3.5-5.0)
[2016-06-19 07:25] LABS: Free T4 0.87 ng/dL (0.61-1.12)
[2016-06-19 07:29] LABS: Total T3 0.96 ng/mL (0.87-1.78)
[2016-06-19] MEDS: DOXYcycline CAP(*) 100 MG PO SCH ×3 (08:13→17:45)
[2016-06-19] MEDS: Multivitamins/Minerals TAB PO SCH (08:13)
[2016-06-19] MEDS: oxyCODONE SR TAB(*) 10 MG TAB.SR PO SCH ×2 (08:13→21:41)
[2016-06-19] MEDS: oxyCODONE/Acetamin 5/325 MG* TAB PO PRN (08:13)
[2016-06-19] MEDS: Sertraline* 100 MG TAB PO SCH (08:14)
[2016-06-19] MEDS: Ferrous Sulfate TAB* 325 MG PO SCH (08:14)
[2016-06-19] MEDS: Acetaminophen TAB* 325 MG PO SCH ×3 (08:14→21:42)
[2016-06-19] MEDS: Metoclopramide TAB* 10 MG PO SCH ×4 (08:14→21:52)
[2016-06-19] MEDS: ALPRAZolam TAB* 0.5 MG PO PRN (21:41)
[2016-06-19] MEDS: Oxybutynin TAB* 5 MG PO PRN (21:41)
[2016-06-19] MEDS: Senna TAB PO SCH (21:42)
[2016-06-20] MEDS: Heparin VIAL(*) 5000 UNITS/ML VIAL (FIVE THOUSAND) SUBCUT SCH ×3 (06:02→21:44)
[2016-06-20] MEDS: Metoclopramide TAB* 10 MG PO SCH ×4 (07:47→21:41)
[2016-06-20] MEDS: DOXYcycline CAP(*) 100 MG PO SCH ×3 (09:20→17:56)
[2016-06-20] MEDS: oxyCODONE SR TAB(*) 10 MG TAB.SR PO SCH ×2 (09:20→21:42)
[2016-06-20] MEDS: Multivitamins/Minerals TAB PO SCH (09:20)
[2016-06-20] MEDS: Sertraline* 100 MG TAB PO SCH (09:20)
[2016-06-20] MEDS: Ferrous Sulfate TAB* 325 MG PO SCH (09:20)
[2016-06-20] MEDS: Acetaminophen TAB* 325 MG PO SCH ×3 (09:21→21:42)
[2016-06-20] MEDS: oxyCODONE/Acetamin 5/325 MG* TAB PO PRN (12:21)
--- NOTE | 2016-06-20 13:18 | PN ---
Subjective Date of Service: 06/20/16 Interval History: Pt feels well, no complaints. Family History: Unchanged from Admission Social History: Unchanged from Admission Past Medical History: Unchanged from Admission Objective Active Medications: Acetaminophen (Tylenol Tab*) 650 mg PO Q4H PRN PRN Reason: FEVER/PAIN Acetaminophen (Tylenol Tab*) 650 mg PO TID [facility] Last Admin: 06/20/16 09:21 Dose: 650 mg Alprazolam (Xanax Tab*) 1 mg PO BID PRN PRN Reason: ANXIETY Last Admin: 06/19/16 21:41 Dose: 1 mg Diphenhydramine HCl (Benadryl Po*) 25 mg PO Q6H PRN PRN Reason: ITCHY Docusate Sodium (Colace Cap*) 100 mg PO BID PRN PRN Reason: CONSTIPATION Last Admin: 06/13/16 09:05 Dose: 100 mg Doxycycline Hyclate (Vibramycin Cap(*)) 100 mg PO 0900,1300,1800 [facility] Last Admin: 06/20/16 09:20 Dose: 100 mg Ergocalciferol (Drisdol Cap*) 50,000 unit PO Q7D [facility] Stop: 07/22/16 20:01 Last Admin: 06/17/16 21:37 Dose: 50,000 unit Ferrous Sulfate (Ferrous Sulfate Tab*) 325 mg PO DAILY [facility] Last Admin: 06/20/16 09:20 Dose: 325 mg Heparin Sodium (Porcine) (Heparin Vial(*)) 5,000 units SUBCUT Q8HR [facility] Last Admin: 06/20/16 06:02 Dose: 5,000 units Metoclopramide HCl (Reglan Tab*) 10 mg PO ACHS [facility] Last Admin: 06/20/16 11:29 Dose: 10 mg Multivitamins/Minerals (Theragran/Minerals Tab*) 1 tab PO DAILY [facility] Last Admin: 06/20/16 09:20 Dose: 1 tab Oxybutynin Chloride (Ditropan Tab*) 5 mg PO BID PRN PRN Reason: BLADDER SPASMS Last Admin: 06/19/16 21:41 Dose: 5 mg Oxycodone HCl (Oxycontin(*)) 10 mg PO BID [facility] Last Admin: 06/20/16 09:20 Dose: 10 mg Oxycodone/Acetaminophen (Percocet 5/325 Tab*) 1 tab PO Q4H PRN PRN Reason: PAIN Last Admin: 06/20/16 12:21 Dose: 1 tab Polyethylene Glycol/Electrolytes (Miralax*) 17 gm PO DAILY PRN PRN Reason: CONSTIPATION Prochlorperazine (Compazine Tab*) 10 mg PO Q6H PRN PRN Reason: NAUSEA Last Admin: 05/30/16 18:46 Dose: 10 mg Senna (Senokot Tab*) 1 tab PO BEDTIME [facility] Last Admin: 06/19/16 21:42 Dose: Not Given Sertraline HCl (Zoloft*) 200 mg PO DAILY [facility] Last Admin: 06/20/16 09:20 Dose: 200 mg Trimethobenzamide HCl (Tigan Cap*) 300 mg PO Q8H PRN PRN Reason: NAUSEA Last Admin: 06/04/16 22:07 Dose: 300 mg Vital Signs 06/19/16 06/19/16 06/19/16 17:07 21:41 23:19 Temperature Pulse Rate Respiratory 18 18 Rate Blood Pressure (mmHg) O2 Sat by Pulse 95 Oximetry 06/19/16 06/20/16 06/20/16 23:41 07:29 08:00 Temperature 98.8 F Pulse Rate 80 Respiratory 20 18 18 Rate Blood Pressure 140/60 (mmHg) O2 Sat by Pulse 97 97 Oximetry 06/20/16 06/20/16 09:20 12:21 Temperature Pulse Rate Respiratory 18 18 Rate Blood Pressure (mmHg) O2 Sat by Pulse Oximetry Oxygen Devices in Use Now: None Appearance: 46 yo f in nAd, aAOx3 Eyes: No Scleral Icterus, PERRLA Ears/Nose/Mouth/Throat: NL Teeth, Lips, Gums, Mucous Membranes Moist Neck: NL Appearance and Movements; NL JVP, Trachea Midline Respiratory: Symmetrical Chest Expansion and Respiratory Effort, Clear to Auscultation Cardiovascular: NL Sounds; No Murmurs; No JVD, RRR Abdominal: NL Sounds; No Tenderness; No Distention, - - ventral hernia present Lymphatic: No Cervical Adenopathy Extremities: No Clubbing, Cyanosis, - - b/l LE's obese, no marked edema noted. Skin: - - R medial ankle incision healed well, no dehiscence Neurological: Alert and Oriented x 3, NL Muscle Strength and Tone Result Diagrams: 06/19/16 06:14 06/19/16 06:14 Assess/Plan/Problems-Billing Ms. Anthony is a 45 yo female with a PMHx of super morbid obesity with BMI 105 and anxiety/depression who originally presented with R lower leg fracture s/p ORIF 03/17 complicated by wound dehiscence and deep infection s/p multiple return trips to OR, now with wound vac who continues to be NWB on right. - Patient Problems (1) Fracture of right tibia and fibula Comment: - S/P ORIF right tib-fib 03/17/16. S/P wound dehiscence and multiple trips to OR for debridement. - started Tilt table on 06/14/16 with 20% of weight, increase 10% weekly as per Ortho recommendation. - Continue Doxycyline. - Continue oxycodone SR 10 mg BID. (2) TSH elevation Comment: Free T4 and T3 WNL. Plan to recheck TSH in 4/6 weeks. (3) Morbid obesity with BMI of 70 and over, adult Comment: - Patient has lost 100lbs since admission and is motivated to continue diet. On MVI, vit D3, FeSO4. (4) DVT prophylaxis Comment: - SQ Heparin. Status and Disposition: Swing status.
[2016-06-20] MEDS: Senna TAB PO SCH (21:21)
[2016-06-20] MEDS ORDERED: ALPRAZolam TAB* 0.5 MG PO PRN (21:52)
[2016-06-20] MEDS: Oxybutynin TAB* 5 MG PO PRN (22:09)
[2016-06-21] MEDS: Heparin VIAL(*) 5000 UNITS/ML VIAL (FIVE THOUSAND) SUBCUT SCH ×3 (06:04→22:04)
[2016-06-21] MEDS: DOXYcycline CAP(*) 100 MG PO SCH ×3 (08:57→18:01)
[2016-06-21] MEDS: Metoclopramide TAB* 10 MG PO SCH ×4 (08:57→20:41)
[2016-06-21] MEDS: Ferrous Sulfate TAB* 325 MG PO SCH (08:57)
[2016-06-21] MEDS: oxyCODONE/Acetamin 5/325 MG* TAB PO PRN (08:57)
[2016-06-21] MEDS: Multivitamins/Minerals TAB PO SCH (08:58)
[2016-06-21] MEDS: Acetaminophen TAB* 325 MG PO SCH ×3 (08:58→20:42)
[2016-06-21] MEDS: Sertraline* 100 MG TAB PO SCH (08:58)
[2016-06-21] MEDS: oxyCODONE SR TAB(*) 10 MG TAB.SR PO SCH ×2 (08:58→20:42)
--- NOTE | 2016-06-21 11:24 | CONSULT ---
Identification - Patient Identification Reason for Psychiatric Consultation: Other - general psychiatric mgt. -: Patient is a 46 year old, F admitted on 05/13/16. History - Objective HPI: Update: Kim reports "doing really well." She notes subjective efficacy with her efforts. She denies persistent sadness, bothersome mood instability, help/ hopelessness. She feels good about the future and being alive. She endorses "more" anxiety, citing being in new situations and having new challenges. She denies any pointless worry, or obsessional themes. Application of CPAP mask is a routine stress that triggers more anxiety. She feels she needs the Xanax to interrupt excalations and prevent setbacks. She acknowledge info on its risks, and she proposed trying a 0.5mg dose instead. She denied other symptoms or concerns. Lab Results: Laboratory Tests 05/22/16 05/22/16 05/29/16 05:05 05:05 07:10 WBC 4.9 4.3 RBC 3.23 L 3.33 L Hgb 8.0 L 8.3 L Hct 26 L 27 L MCV 80 81 MCH 25 L 25 L MCHC 31 31 RDW 21 H 21 H Plt Count 269 260 MPV 7 L 7 L Neut % (Auto) 65.5 63.3 Lymph % (Auto) 20.3 L 21.2 L [place] % (Auto) 4.5 6.4 Eos % (Auto) 8.4 H 7.6 H Baso % (Auto) 1.3 1.5 Absolute Neuts (auto) 3.2 2.7 Absolute Lymphs (auto) 1.0 0.9 L Absolute Monos (auto) 0.2 0.3 Absolute Eos (auto) 0.4 0.3 Absolute Basos (auto) 0.1 0.1 Absolute Nucleated RBC 0 0 Nucleated RBC % 0 0 ESR 59 H Sodium 131 L Potassium 3.5 Chloride 103 Carbon Dioxide 34 H Anion Gap -6 L BUN 19 Creatinine 1.66 H Est GFR ( Amer) 43.0 Est GFR (Non-Af Amer) 33.4 BUN/Creatinine Ratio 11.4 Glucose 92 Calcium 8.7 Total Bilirubin AST ALT Alkaline Phosphatase C-Reactive Protein Total Protein Albumin Globulin Albumin/Globulin Ratio 25-OH Vitamin D Total TSH Free T4 Total T3 05/29/16 05/29/16 06/06/16 07:10 07:10 06:25 WBC RBC Hgb Hct MCV MCH MCHC RDW Plt Count MPV Neut % (Auto) Lymph % (Auto) [place] % (Auto) Eos % (Auto) Baso % (Auto) Absolute Neuts (auto) Absolute Lymphs (auto) Absolute Monos (auto) Absolute Eos (auto) Absolute Basos (auto) Absolute Nucleated RBC Nucleated RBC % ESR Sodium 137 135 Potassium 3.6 4.0 Chloride 100 L 101 Carbon Dioxide 32 29 Anion Gap 5 5 BUN 16 17 Creatinine 1.25 H 1.09 H Est GFR ( Amer) 59.3 69.5 Est GFR (Non-Af Amer) 46.1 54.0 BUN/Creatinine Ratio 12.8 15.6 Glucose 86 91 Calcium 8.8 8.9 Total Bilirubin 0.80 AST 9 L ALT 5 L Alkaline Phosphatase 59 C-Reactive Protein 21.51 H Total Protein 6.7 Albumin 3.0 L Globulin 3.7 Albumin/Globulin Ratio 0.8 L 25-OH Vitamin D Total < 7.0 L TSH 8.48 H Free T4 Total T3 06/19/16 06/19/16 06:14 06:14 WBC 6.4 RBC 3.26 L Hgb 8.5 L Hct 27 L MCV 82 MCH 26 L MCHC 32 RDW 20 H Plt Count 291 MPV 8 Neut % (Auto) 71.1 Lymph % (Auto) 19.2 L [place] % (Auto) 4.5 Eos % (Auto) 4.6 Baso % (Auto) 0.6 Absolute Neuts (auto) 4.5 Absolute Lymphs (auto) 1.2 Absolute Monos (auto) 0.3 Absolute Eos (auto) 0.3 Absolute Basos (auto) 0 Absolute Nucleated RBC 0 Nucleated RBC % 0 ESR Sodium 134 Potassium 3.9 Chloride 100 L Carbon Dioxide 28 Anion Gap 6 BUN 24 Creatinine 0.87 Est GFR ( Amer) 90.1 Est GFR (Non-Af Amer) 70.1 BUN/Creatinine Ratio 27.6 H Glucose 95 Calcium 9.2 Total Bilirubin AST ALT Alkaline Phosphatase C-Reactive Protein Total Protein Albumin Globulin Albumin/Globulin Ratio 25-OH Vitamin D Total TSH Free T4 0.87 Total T3 0.96 Exam Appearance: Obese Hygiene: Normal Grooming: Well Kept Psychomotor Activities: Normal Attitude and Relatedness: Cooperative Eye Contact: Good - Speech Quality: Unpressured Latencies: Normal Quantity: Appropriate Patient's Decription of Mood: "Anxious" Observed Affect: Non-labile Affect Consistent with: Euthymia Patient's Thought Process: Coherent, Goal Directed Thought Content: No Passive Wish, No Suicidal Planning, No Homicidal Ideation, No Paranoid Ideation Experiencing Hallucinations: No, Sensorium is Clear Level of Consciousness: Alert Impulse Control: Intact Insight and Judgement: Good Impression - Impression Clinical Impression: 46-year-old female with history of depression and anxiety. Mood symptoms are well-regulated and subclinical at this time. Anxiety is generally mild, with escalations with patient's current challenges. It has been appropriate to optimize the dose of SSRI; and it remains appropriate to try to reduce the patient's reliance on benzodiazepines. At this point Xanax is clearly helpful, so a dose reduction (with rescue PRN) is a good first step. Inpatient DSM-IV Dx: Major depressive disorder, in remission. Anxiety state, not otherwise specified. Plan - Treatment Plan Treatment Plan: Medication Management: Continue Zoloft 200 mg a day. Will lower Xanax dose to 0.5 mg, with 'rescue' PRN dose, to explore incremental reduction. Consider additional therapeutic modalities such as psychological counseling. Thank you for the opportunity to participate in Ms. Anthony's care. I will follow her routinely at intervals of approximately 1 week, but please contact me with any questions or concerns. Medications: Current Medications Acetaminophen (Tylenol Tab*) 650 mg PO Q4H PRN PRN Reason: FEVER/PAIN Acetaminophen (Tylenol Tab*) 650 mg PO TID [facility] Last Admin: 06/21/16 08:58 Dose: 650 mg Alprazolam (Xanax Tab*) 1 mg PO BID PRN PRN Reason: AGITATION Last Admin: 06/20/16 22:09 Dose: 1 mg Diphenhydramine HCl (Benadryl Po*) 25 mg PO Q6H PRN PRN Reason: ITCHY Docusate Sodium (Colace Cap*) 100 mg PO BID PRN PRN Reason: CONSTIPATION Last Admin: 06/13/16 09:05 Dose: 100 mg Doxycycline Hyclate (Vibramycin Cap(*)) 100 mg PO 0900,1300,1800 [facility] Last Admin: 06/21/16 08:57 Dose: 100 mg Ergocalciferol (Drisdol Cap*) 50,000 unit PO Q7D [facility] Stop: 07/22/16 20:01 Last Admin: 06/17/16 21:37 Dose: 50,000 unit Ferrous Sulfate (Ferrous Sulfate Tab*) 325 mg PO DAILY [facility] Last Admin: 06/21/16 08:57 Dose: 325 mg Heparin Sodium (Porcine) (Heparin Vial(*)) 5,000 units SUBCUT Q8HR [facility] Last Admin: 06/21/16 06:04 Dose: 5,000 units Metoclopramide HCl (Reglan Tab*) 10 mg PO ACHS [facility] Last Admin: 06/21/16 08:57 Dose: 10 mg Multivitamins/Minerals (Theragran/Minerals Tab*) 1 tab PO DAILY [facility] Last Admin: 06/21/16 08:58 Dose: 1 tab Oxybutynin Chloride (Ditropan Tab*) 5 mg PO BID PRN PRN Reason: BLADDER SPASMS Last Admin: 06/20/16 22:09 Dose: 5 mg Oxycodone HCl (Oxycontin(*)) 10 mg PO BID [facility] Last Admin: 06/21/16 08:58 Dose: 10 mg Oxycodone/Acetaminophen (Percocet 5/325 Tab*) 1 tab PO Q4H PRN PRN Reason: PAIN Last Admin: 06/21/16 08:57 Dose: 1 tab Polyethylene Glycol/Electrolytes (Miralax*) 17 gm PO DAILY PRN PRN Reason: CONSTIPATION Prochlorperazine (Compazine Tab*) 10 mg PO Q6H PRN PRN Reason: NAUSEA Last Admin: 05/30/16 18:46 Dose: 10 mg Senna (Senokot Tab*) 1 tab PO BEDTIME [facility] Last Admin: 06/20/16 21:21 Dose: Not Given Sertraline HCl (Zoloft*) 200 mg PO DAILY [facility] Last Admin: 06/21/16 08:58 Dose: 200 mg Trimethobenzamide HCl (Tigan Cap*) 300 mg PO Q8H PRN PRN Reason: NAUSEA Last Admin: 06/04/16 22:07 Dose: 300 mg
[2016-06-21] MEDS ORDERED: ALPRAZolam TAB* 0.5 MG PO PRN (11:32)
[2016-06-21] MEDS: Senna TAB PO SCH (20:42)
[2016-06-21] MEDS: Oxybutynin TAB* 5 MG PO PRN (20:43)
[2016-06-21] MEDS: ALPRAZolam TAB* 0.5 MG PO PRN (22:03)
[2016-06-22] MEDS: Heparin VIAL(*) 5000 UNITS/ML VIAL (FIVE THOUSAND) SUBCUT SCH ×3 (06:14→22:03)
[2016-06-22] MEDS: Metoclopramide TAB* 10 MG PO SCH ×4 (07:43→21:08)
[2016-06-22] MEDS: Sertraline* 100 MG TAB PO SCH (09:20)
[2016-06-22] MEDS: Multivitamins/Minerals TAB PO SCH (09:20)
[2016-06-22] MEDS: Ferrous Sulfate TAB* 325 MG PO SCH (09:20)
[2016-06-22] MEDS: oxyCODONE SR TAB(*) 10 MG TAB.SR PO SCH ×2 (09:20→21:05)
[2016-06-22] MEDS: DOXYcycline CAP(*) 100 MG PO SCH ×3 (09:20→18:06)
[2016-06-22] MEDS: Acetaminophen TAB* 325 MG PO SCH ×3 (09:20→21:06)
[2016-06-22] MEDS: Senna TAB PO SCH (21:05)
[2016-06-22] MEDS: ALPRAZolam TAB* 0.5 MG PO PRN (22:03)
[2016-06-22] MEDS: Oxybutynin TAB* 5 MG PO PRN (22:03)
[2016-06-23] MEDS: Heparin VIAL(*) 5000 UNITS/ML VIAL (FIVE THOUSAND) SUBCUT SCH ×3 (06:12→22:05)
[2016-06-23] MEDS: Metoclopramide TAB* 10 MG PO SCH ×4 (07:22→22:04)
[2016-06-23] MEDS: Acetaminophen TAB* 325 MG PO SCH ×3 (09:10→22:01)
[2016-06-23] MEDS: DOXYcycline CAP(*) 100 MG PO SCH ×3 (09:10→17:56)
[2016-06-23] MEDS: Sertraline* 100 MG TAB PO SCH (09:10)
[2016-06-23] MEDS: Ferrous Sulfate TAB* 325 MG PO SCH (09:10)
[2016-06-23] MEDS: oxyCODONE SR TAB(*) 10 MG TAB.SR PO SCH ×2 (09:10→22:02)
[2016-06-23] MEDS: Multivitamins/Minerals TAB PO SCH (09:10)
[2016-06-23] MEDS: Oxybutynin TAB* 5 MG PO PRN (22:01)
[2016-06-23] MEDS: ALPRAZolam TAB* 0.5 MG PO PRN (22:02)
[2016-06-23] MEDS: Senna TAB PO SCH (22:09)
[2016-06-24] MEDS: Heparin VIAL(*) 5000 UNITS/ML VIAL (FIVE THOUSAND) SUBCUT SCH ×3 (06:08→22:08)
[2016-06-24] MEDS: Metoclopramide TAB* 10 MG PO SCH ×4 (07:54→21:10)
[2016-06-24] MEDS: oxyCODONE/Acetamin 5/325 MG* TAB PO PRN ×2 (09:12→23:50)
[2016-06-24] MEDS: Acetaminophen TAB* 325 MG PO SCH ×3 (09:12→21:10)
[2016-06-24] MEDS: oxyCODONE SR TAB(*) 10 MG TAB.SR PO SCH ×2 (09:12→21:11)
[2016-06-24] MEDS: Ferrous Sulfate TAB* 325 MG PO SCH (09:12)
[2016-06-24] MEDS: Sertraline* 100 MG TAB PO SCH (09:13)
[2016-06-24] MEDS: Multivitamins/Minerals TAB PO SCH (09:13)
[2016-06-24] MEDS: DOXYcycline CAP(*) 100 MG PO SCH ×3 (09:13→18:08)
[2016-06-24] MEDS: Trimethobenzamide CAP* 300 MG PO PRN (11:44)
[2016-06-24] MEDS: Ergocalciferol CAP* 50000 UNIT PO SCH (21:11)
[2016-06-24] MEDS: Senna TAB PO SCH (21:11)
[2016-06-24] MEDS: Oxybutynin TAB* 5 MG PO PRN (21:12)
[2016-06-24] MEDS: ALPRAZolam TAB* 0.5 MG PO PRN (22:08)
[2016-06-25] MEDS: Heparin VIAL(*) 5000 UNITS/ML VIAL (FIVE THOUSAND) SUBCUT SCH ×3 (06:08→22:08)
[2016-06-25] MEDS: Metoclopramide TAB* 10 MG PO SCH ×4 (08:10→20:16)
[2016-06-25] MEDS: Sertraline* 100 MG TAB PO SCH (09:08)
[2016-06-25] MEDS: DOXYcycline CAP(*) 100 MG PO SCH ×3 (09:08→18:02)
[2016-06-25] MEDS: Ferrous Sulfate TAB* 325 MG PO SCH (09:09)
[2016-06-25] MEDS: Acetaminophen TAB* 325 MG PO SCH ×3 (09:09→20:16)
[2016-06-25] MEDS: oxyCODONE SR TAB(*) 10 MG TAB.SR PO SCH ×2 (09:09→20:16)
[2016-06-25] MEDS: Multivitamins/Minerals TAB PO SCH (09:09)
[2016-06-25] MEDS: oxyCODONE/Acetamin 5/325 MG* TAB PO PRN (09:21)
[2016-06-25] MEDS: Oxybutynin TAB* 5 MG PO PRN (20:17)
[2016-06-25] MEDS: Senna TAB PO SCH (20:17)
[2016-06-25] MEDS: ALPRAZolam TAB* 0.5 MG PO PRN (22:07)
[2016-06-26] MEDS: Heparin VIAL(*) 5000 UNITS/ML VIAL (FIVE THOUSAND) SUBCUT SCH ×3 (05:51→21:24)
[2016-06-26] MEDS: Metoclopramide TAB* 10 MG PO SCH ×4 (07:34→21:22)
[2016-06-26] MEDS: Sertraline* 100 MG TAB PO SCH (09:08)
[2016-06-26] MEDS: Multivitamins/Minerals TAB PO SCH (09:08)
[2016-06-26] MEDS: Ferrous Sulfate TAB* 325 MG PO SCH (09:08)
[2016-06-26] MEDS: DOXYcycline CAP(*) 100 MG PO SCH ×3 (09:09→18:18)
[2016-06-26] MEDS: Acetaminophen TAB* 325 MG PO SCH ×3 (09:09→21:23)
[2016-06-26] MEDS: oxyCODONE SR TAB(*) 10 MG TAB.SR PO SCH ×2 (09:09→21:23)
--- NOTE | 2016-06-26 10:27 | PN ---
Progress Note - Progress Note SOAP: Subjective: [Pt reports she's doing well. Minimal c/o pain R ankle. Has been up on tilt table and tells me it will be up to 3 x/week now. Two other days of working on other exercises and slide board. Feels "pressure" in tibia with WB but no pain. ] Objective: [A and O x 3, NAD. Good spirits. R ankle incision well-healed. AROM intact R ankle. NV function intact. Vital Signs: Temp Pulse Resp BP Pulse Ox 98.3 F 91 18 130/58 99 06/25/16 09:54 06/25/16 09:54 06/26/16 09:09 06/25/16 09:54 06/26/16 07:38 Vital Signs: Temp Pulse Resp BP Pulse Ox 98.3 F 91 18 130/58 99 06/25/16 09:54 06/25/16 09:54 06/26/16 09:09 06/25/16 09:54 06/26/16 07:38 ] Assessment: [s/p R tibia ORIF] Plan: [Con't. tilt table for WB assistance. Con't PT/OT]
[2016-06-26] MEDS: ALPRAZolam TAB* 0.5 MG PO PRN (21:23)
[2016-06-26] MEDS: Oxybutynin TAB* 5 MG PO PRN (21:23)
[2016-06-26] MEDS: Senna TAB PO SCH (21:29)
[2016-06-27] MEDS: Heparin VIAL(*) 5000 UNITS/ML VIAL (FIVE THOUSAND) SUBCUT SCH ×3 (05:55→21:34)
[2016-06-27] MEDS: Metoclopramide TAB* 10 MG PO SCH ×4 (07:32→20:30)
[2016-06-27] MEDS: Acetaminophen TAB* 325 MG PO SCH ×3 (09:16→20:30)
[2016-06-27] MEDS: DOXYcycline CAP(*) 100 MG PO SCH ×3 (09:16→17:57)
[2016-06-27] MEDS: Sertraline* 100 MG TAB PO SCH (09:16)
[2016-06-27] MEDS: Ferrous Sulfate TAB* 325 MG PO SCH (09:16)
[2016-06-27] MEDS: Multivitamins/Minerals TAB PO SCH (09:16)
[2016-06-27] MEDS: oxyCODONE SR TAB(*) 10 MG TAB.SR PO SCH ×2 (09:17→20:30)
[2016-06-27] MEDS: oxyCODONE/Acetamin 5/325 MG* TAB PO PRN (20:29)
[2016-06-27] MEDS: Senna TAB PO SCH (20:31)
[2016-06-27] MEDS: ALPRAZolam TAB* 0.5 MG PO PRN (20:32)
[2016-06-28] MEDS: Heparin VIAL(*) 5000 UNITS/ML VIAL (FIVE THOUSAND) SUBCUT SCH ×3 (05:46→22:00)
[2016-06-28] MEDS: Metoclopramide TAB* 10 MG PO SCH ×4 (08:03→20:43)
[2016-06-28] MEDS: oxyCODONE/Acetamin 5/325 MG* TAB PO PRN (09:45)
[2016-06-28] MEDS: oxyCODONE SR TAB(*) 10 MG TAB.SR PO SCH ×2 (09:47→20:42)
[2016-06-28] MEDS: Ferrous Sulfate TAB* 325 MG PO SCH (09:49)
[2016-06-28] MEDS: DOXYcycline CAP(*) 100 MG PO SCH ×3 (09:49→17:59)
[2016-06-28] MEDS: Multivitamins/Minerals TAB PO SCH (09:50)
[2016-06-28] MEDS: Sertraline* 100 MG TAB PO SCH (09:50)
[2016-06-28] MEDS: Acetaminophen TAB* 325 MG PO SCH ×3 (09:51→20:43)
--- NOTE | 2016-06-28 11:23 | PN ---
Subjective Date of Service: 06/28/16 Interval History: HOSPITALIST PROGRESS NOTE Patient seen and examined at bedside. In good spirits, offers no new complaints. Making progress with Tilt table, transfering to with slide board. Pain is controlled. Very encouraged with her weight loss so far. Family History: Unchanged from Admission Social History: Unchanged from Admission Past Medical History: Unchanged from Admission Objective Active Medications: Acetaminophen (Tylenol Tab*) 650 mg PO Q4H PRN PRN Reason: FEVER/PAIN Acetaminophen (Tylenol Tab*) 650 mg PO TID [facility] Last Admin: 06/28/16 09:51 Dose: 650 mg Alprazolam (Xanax Tab*) 0.5 mg PO Q4H PRN PRN Reason: ANXIETY Last Admin: 06/27/16 20:32 Dose: 0.5 mg Diphenhydramine HCl (Benadryl Po*) 25 mg PO Q6H PRN PRN Reason: ITCHY Docusate Sodium (Colace Cap*) 100 mg PO BID PRN PRN Reason: CONSTIPATION Last Admin: 06/13/16 09:05 Dose: 100 mg Doxycycline Hyclate (Vibramycin Cap(*)) 100 mg PO 0900,1300,1800 [facility] Last Admin: 06/28/16 09:49 Dose: 100 mg Ergocalciferol (Drisdol Cap*) 50,000 unit PO Q7D [facility] Stop: 07/22/16 20:01 Last Admin: 06/24/16 21:11 Dose: 50,000 unit Ferrous Sulfate (Ferrous Sulfate Tab*) 325 mg PO DAILY [facility] Last Admin: 06/28/16 09:49 Dose: 325 mg Heparin Sodium (Porcine) (Heparin Vial(*)) 5,000 units SUBCUT Q8HR [facility] Last Admin: 06/28/16 05:46 Dose: 5,000 units Metoclopramide HCl (Reglan Tab*) 10 mg PO ACHS [facility] Last Admin: 06/28/16 08:03 Dose: 10 mg Multivitamins/Minerals (Theragran/Minerals Tab*) 1 tab PO DAILY [facility] Last Admin: 06/28/16 09:50 Dose: 1 tab Oxybutynin Chloride (Ditropan Tab*) 5 mg PO BID PRN PRN Reason: BLADDER SPASMS Last Admin: 06/26/16 21:23 Dose: 5 mg Oxycodone HCl (Oxycontin(*)) 10 mg PO BID [facility] Last Admin: 06/28/16 09:47 Dose: 10 mg Oxycodone/Acetaminophen (Percocet 5/325 Tab*) 1 tab PO Q4H PRN PRN Reason: PAIN Last Admin: 06/28/16 09:45 Dose: 1 tab Polyethylene Glycol/Electrolytes (Miralax*) 17 gm PO DAILY PRN PRN Reason: CONSTIPATION Prochlorperazine (Compazine Tab*) 10 mg PO Q6H PRN PRN Reason: NAUSEA Last Admin: 05/30/16 18:46 Dose: 10 mg Senna (Senokot Tab*) 1 tab PO BEDTIME [facility] Last Admin: 06/27/16 20:31 Dose: Not Given Sertraline HCl (Zoloft*) 200 mg PO DAILY [facility] Last Admin: 06/28/16 09:50 Dose: 200 mg Trimethobenzamide HCl (Tigan Cap*) 300 mg PO Q8H PRN PRN Reason: NAUSEA Last Admin: 06/04/16 22:07 Dose: 300 mg Vital Signs 06/27/16 06/27/16 06/27/16 16:00 17:27 20:29 Temperature 98.6 F Pulse Rate 70 Respiratory 18 16 Rate Blood Pressure 137/64 (mmHg) O2 Sat by Pulse 96 96 Oximetry Oxygen Devices in Use Now: Nasal Cannula Appearance: Pleasant lady sitting up in bed in NAD, eating breakfast. Eyes: No Scleral Icterus Ears/Nose/Mouth/Throat: Mucous Membranes Moist Neck: Trachea Midline Respiratory: Symmetrical Chest Expansion and Respiratory Effort, Clear to Auscultation Cardiovascular: RRR - Normal S1 and S2 Extremities: - - Well healed right ankle surgical scar Neurological: Alert and Oriented x 3, NL Muscle Strength and Tone Lines/Tubes/Other Access: Clean, Dry and Intact Golden Nutrition: Taking PO's Result Diagrams: 06/19/16 06:14 06/19/16 06:14 Assess/Plan/Problems-Billing Ms. Anthony is a 45 yo female with a PMHx of super morbid obesity with BMI 105 and anxiety/depression who originally presented with R lower leg fracture s/p ORIF 03/17 complicated by wound dehiscence and deep infection s/p multiple return trips to OR, now with wound vac who continues to be NWB on right. - Patient Problems (1) Fracture of right tibia and fibula Comment: - S/P ORIF right tib-fib 03/17/16. S/P wound dehiscence and multiple trips to OR for debridement. - started Tilt table on 06/14/16 with 20% of weight, increase 10% weekly as per Ortho recommendation. - Continue Doxycyline fpc. - Continue oxycodone SR 10 mg BID. (2) Morbid obesity with BMI of 70 and over, adult Comment: - Weight down to 534lbs. - Very motivated to continue diet. On MVI, vit D3, FeSO4. (3) Depression Comment: - Continue Zoloft 200mg daily. (4) TSH elevation Comment: Free T4 and T3 WNL. Plan to recheck TSH in 4/6 weeks. (5) DVT prophylaxis Comment: - SQ Heparin. (6) Full code status Status and Disposition: Swing status.
[2016-06-28] MEDS: Senna TAB PO SCH (19:38)
[2016-06-28] MEDS: Oxybutynin TAB* 5 MG PO PRN (20:43)
[2016-06-28] MEDS: ALPRAZolam TAB* 0.5 MG PO PRN (21:59)
[2016-06-29] MEDS: Heparin VIAL(*) 5000 UNITS/ML VIAL (FIVE THOUSAND) SUBCUT SCH ×3 (05:37→22:06)
[2016-06-29] MEDS: Metoclopramide TAB* 10 MG PO SCH ×4 (07:46→20:58)
[2016-06-29] MEDS: Multivitamins/Minerals TAB PO SCH (08:55)
[2016-06-29] MEDS: oxyCODONE SR TAB(*) 10 MG TAB.SR PO SCH ×2 (08:55→20:57)
[2016-06-29] MEDS: Acetaminophen TAB* 325 MG PO SCH ×3 (08:55→20:58)
[2016-06-29] MEDS: Ferrous Sulfate TAB* 325 MG PO SCH (08:56)
[2016-06-29] MEDS: DOXYcycline CAP(*) 100 MG PO SCH ×3 (08:56→18:05)
[2016-06-29] MEDS: Sertraline* 100 MG TAB PO SCH (08:56)
[2016-06-29] MEDS: ALPRAZolam TAB* 0.5 MG PO PRN ×2 (09:59→22:05)
[2016-06-29] MEDS: Oxybutynin TAB* 5 MG PO PRN (20:58)
[2016-06-29] MEDS: Senna TAB PO SCH (20:59)
[2016-06-30] MEDS: Heparin VIAL(*) 5000 UNITS/ML VIAL (FIVE THOUSAND) SUBCUT SCH ×3 (06:00→21:59)
[2016-06-30] MEDS: Metoclopramide TAB* 10 MG PO SCH ×4 (07:29→21:59)
[2016-06-30] MEDS: DOXYcycline CAP(*) 100 MG PO SCH ×3 (09:19→18:10)
[2016-06-30] MEDS: oxyCODONE SR TAB(*) 10 MG TAB.SR PO SCH ×2 (09:20→21:59)
[2016-06-30] MEDS: Sertraline* 100 MG TAB PO SCH (09:20)
[2016-06-30] MEDS: oxyCODONE/Acetamin 5/325 MG* TAB PO PRN ×2 (09:20→19:52)
[2016-06-30] MEDS: Acetaminophen TAB* 325 MG PO SCH ×3 (09:20→22:00)
[2016-06-30] MEDS: Multivitamins/Minerals TAB PO SCH (09:21)
[2016-06-30] MEDS: Ferrous Sulfate TAB* 325 MG PO SCH (09:21)
[2016-06-30] MEDS: Trimethobenzamide CAP* 300 MG PO PRN (10:34)
[2016-06-30] MEDS: Oxybutynin TAB* 5 MG PO PRN (21:59)
[2016-06-30] MEDS: ALPRAZolam TAB* 0.5 MG PO PRN (21:59)
[2016-06-30] MEDS: Senna TAB PO SCH (22:00)
[2016-07-01] MEDS: Heparin VIAL(*) 5000 UNITS/ML VIAL (FIVE THOUSAND) SUBCUT SCH ×3 (05:46→22:14)
[2016-07-01] MEDS: Metoclopramide TAB* 10 MG PO SCH ×4 (07:36→20:56)
[2016-07-01] MEDS: Multivitamins/Minerals TAB PO SCH (07:38)
[2016-07-01] MEDS: Ferrous Sulfate TAB* 325 MG PO SCH (07:38)
[2016-07-01] MEDS: Acetaminophen TAB* 325 MG PO SCH ×3 (08:51→20:52)
[2016-07-01] MEDS: DOXYcycline CAP(*) 100 MG PO SCH ×3 (08:51→18:19)
[2016-07-01] MEDS: oxyCODONE SR TAB(*) 10 MG TAB.SR PO SCH ×2 (08:51→20:56)
[2016-07-01] MEDS: Sertraline* 100 MG TAB PO SCH (08:51)
--- NOTE | 2016-07-01 16:02 | CONSULT ---
Consult Consult: [facility] MILDRED LINO, [facility]- [address], [address] [place] [address] [phone] Date: 07/01/16 Name: Kim Anthony : 1970 Sex: F Age: 46 yrs Referral source: Mildred Lino INFORMATION TECHNOLOGY ADVISOR Referral reason: medically supervised weight-loss (MSWL). This is a 46 year old female who was referred by [facility] for medically supervised weight loss. HPI: Feeling good overall. Making more progress with increasing her activity. Now using her tilt table at 30 degrees. Could tolerate that for 6 min yesterday. Is feeling sore from an upper body band workout she did yesterday. ROS: Const: No health changes since last visit one week ago CV: Denies cardiovascular symptoms. Resp: Denies respiratory symptoms, some SOB with activity, keeps O2 saturation > 90% GI: Denies gastrointestinal symptoms, some nausea with doxycycline use, helps to take with food Musculo: Denies musculoskeletal symptoms. Neuro: Denies neurologic symptoms. Psych: Denies mood changes and suicidal thoughts. 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 FH: Mother - mental health issues (not diagnosed), hx of obesity Father - [place] and stent placement; hyperlipidemia, hypertension, aortic stenosis, smoker Sister - [employer] MGM - obesity, A&W . Reviewed, no changes. 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 Reviewed, no changes. Food log reviewed Vital Signs: Temp Pulse Resp BP Pulse Ox 98.0 F 75 20 122/54 97 06/30/16 07:49 06/30/16 07:49 07/01/16 10:51 06/30/16 07:49 06/30/16 21:27 Weight 533 lb 2 oz Exam: Const: Appears healthy and well developed. Psych: Mood/Affect: Mood is normal. Affect is normal. Cognition: Orientation is intact to person, place and time. Judgment and insight are grossly intact. Full physical exam not indicated Assessment: 1. E66.01 Morbid (severe) obesity due to excess calories Comments : Florence continues to lose weight gradually though it has has been at a plateau over the last week. She had some take out food with her family on Frey's day. Noticed that she needed a much smaller portion to feel full. Discussed the following topics today: - mindful eating techniques - setting up her home environment to minimize exposure to unhealthy foods - family support for ongoing weight loss and lifestyle changes when she goes home - importance of exercise and strength training 2. G47.33 Obstructive sleep apnea (adult) (pediatric) Goals : 1. Continue logging your food daily and include satiety level before meals. 2. Consider using the arm ergometer more frequently - you can do this at a lower level of exertion than you do in physical therapy. The plan of care was reviewed with the patient and the patient understood and agreed with the plan of care. Counseling and/or Coordination of Care: Time was a significant factor with this patient encounter. Total time spent with patient was 60 minutes, the entire time was spent on patient counseling and/or coordination of care. Seen by:
[2016-07-01] MEDS: oxyCODONE/Acetamin 5/325 MG* TAB PO PRN (16:42)
[2016-07-01] MEDS: Senna TAB PO SCH (20:52)
[2016-07-01] MEDS: Oxybutynin TAB* 5 MG PO PRN (20:56)
[2016-07-01] MEDS: Ergocalciferol CAP* 50000 UNIT PO SCH (20:58)
[2016-07-01] MEDS: ALPRAZolam TAB* 0.5 MG PO PRN (22:14)
[2016-07-02] MEDS: Heparin VIAL(*) 5000 UNITS/ML VIAL (FIVE THOUSAND) SUBCUT SCH ×3 (06:12→22:20)
[2016-07-02 07:13] LABS: Hematocrit 28 % (35-47); Hemoglobin 8.8 g/dl (12.0-16.0); Mean Corpuscular HGB Conc 32 g/dl (31-36); Mean Corpuscular Hemoglobin 26 pg (27-31); Mean Corpuscular Volume 83 fL (80-97); Mean Platelet Volume 7 um3 (7.4-10.4); Red Blood Count 3.33 10^6/ul (4.0-5.4); Red Cell Distribution Width 19 % (10.5-15); White Blood Count 6.4 10^3/ul (3.5-10.8)
[2016-07-02 07:29] LABS: BUN/Creatinine Ratio 24.7 (8-20); Calcium 9.3 mg/dL (8.6-10.3); EGFR African American 92.6 (>60); Potassium 3.8 mmol/L (3.5-5.0)
[2016-07-02] MEDS: Metoclopramide TAB* 10 MG PO SCH ×4 (08:11→21:08)
[2016-07-02] MEDS: Sertraline* 100 MG TAB PO SCH (08:12)
[2016-07-02] MEDS: DOXYcycline CAP(*) 100 MG PO SCH ×3 (08:12→18:09)
[2016-07-02] MEDS: Acetaminophen TAB* 325 MG PO SCH ×3 (08:12→21:07)
[2016-07-02] MEDS: Multivitamins/Minerals TAB PO SCH (08:12)
[2016-07-02] MEDS: oxyCODONE SR TAB(*) 10 MG TAB.SR PO SCH ×2 (08:12→21:08)
[2016-07-02] MEDS: Ferrous Sulfate TAB* 325 MG PO SCH (08:12)
[2016-07-02] MEDS: oxyCODONE/Acetamin 5/325 MG* TAB PO PRN (08:13)
[2016-07-02] MEDS: ALPRAZolam TAB* 0.5 MG PO PRN (21:08)
[2016-07-02] MEDS: Oxybutynin TAB* 5 MG PO PRN (21:08)
[2016-07-02] MEDS: Senna TAB PO SCH (21:09)
[2016-07-03] MEDS: Heparin VIAL(*) 5000 UNITS/ML VIAL (FIVE THOUSAND) SUBCUT SCH ×3 (05:44→21:26)
[2016-07-03] MEDS: Metoclopramide TAB* 10 MG PO SCH ×4 (07:37→20:15)
[2016-07-03] MEDS: DOXYcycline CAP(*) 100 MG PO SCH ×3 (09:12→17:55)
[2016-07-03] MEDS: Acetaminophen TAB* 325 MG PO SCH ×3 (09:12→20:10)
[2016-07-03] MEDS: Sertraline* 100 MG TAB PO SCH (09:12)
[2016-07-03] MEDS: oxyCODONE SR TAB(*) 10 MG TAB.SR PO SCH ×2 (09:12→20:15)
[2016-07-03] MEDS: Multivitamins/Minerals TAB PO SCH (09:14)
[2016-07-03] MEDS: Ferrous Sulfate TAB* 325 MG PO SCH (09:14)
[2016-07-03] MEDS: Senna TAB PO SCH (20:10)
[2016-07-03] MEDS: ALPRAZolam TAB* 0.5 MG PO PRN (20:15)
[2016-07-03] MEDS: oxyCODONE/Acetamin 5/325 MG* TAB PO PRN (21:25)
[2016-07-04] MEDS: Heparin VIAL(*) 5000 UNITS/ML VIAL (FIVE THOUSAND) SUBCUT SCH ×3 (05:26→21:52)
[2016-07-04] MEDS: Metoclopramide TAB* 10 MG PO SCH ×4 (07:31→21:51)
[2016-07-04] MEDS: Multivitamins/Minerals TAB PO SCH (08:56)
[2016-07-04] MEDS: Ferrous Sulfate TAB* 325 MG PO SCH (08:56)
[2016-07-04] MEDS: oxyCODONE SR TAB(*) 10 MG TAB.SR PO SCH ×2 (08:59→21:51)
[2016-07-04] MEDS: DOXYcycline CAP(*) 100 MG PO SCH ×3 (08:59→17:50)
[2016-07-04] MEDS: Acetaminophen TAB* 325 MG PO SCH ×3 (08:59→21:53)
[2016-07-04] MEDS: Sertraline* 100 MG TAB PO SCH (08:59)
--- NOTE | 2016-07-04 11:10 | PN ---
Progress Note - Progress Note SOAP: Subjective: [46 y/o female s/p tibial fracture ORIF. Patient reports feeling well, moving ankel well, no pain. Inpatient for weight control, tolerating tilt table to 40 , no complaints, concerns. ] Objective: [General- Well appearing, NAD MSK- incision well healed, + ankle R dorsiflexion/ plantarflexion. Vital Signs Temp 98.0 F 07/04/16 07:31 Pulse 69 07/04/16 07:31 Resp 18 07/04/16 08:59 BP 116/45 07/04/16 07:31 Pulse Ox 99 07/04/16 07:31 Intake & Output 07/03/16 07/04/16 07/04/16 18:59 06:59 18:59 Intake Total 1000 720 Output Total 750 2475 Balance 250 -1755 Weight 530 lb 1.6 oz Intake: Oral 1000 720 Output: Golden 750 2475 Other: Date of Last Bowel 07/03/16 Movement # Bowel Movements 1 Estimated Stool Amount Medium ] Assessment: [Stable ORIF R ankle ] Plan: [- Continue current management - Dr. Connelly to follow ]
[2016-07-04] MEDS: oxyCODONE/Acetamin 5/325 MG* TAB PO PRN (15:59)
[2016-07-04] MEDS: ALPRAZolam TAB* 0.5 MG PO PRN (21:52)
[2016-07-04] MEDS: Senna TAB PO SCH (21:53)
[2016-07-05] MEDS: Heparin VIAL(*) 5000 UNITS/ML VIAL (FIVE THOUSAND) SUBCUT SCH ×3 (06:02→22:13)
[2016-07-05] MEDS: Metoclopramide TAB* 10 MG PO SCH ×4 (08:06→19:54)
[2016-07-05] MEDS: Multivitamins/Minerals TAB PO SCH (09:56)
[2016-07-05] MEDS: Ferrous Sulfate TAB* 325 MG PO SCH (09:57)
[2016-07-05] MEDS: Sertraline* 100 MG TAB PO SCH (09:57)
[2016-07-05] MEDS: oxyCODONE/Acetamin 5/325 MG* TAB PO PRN ×2 (09:58→22:13)
[2016-07-05] MEDS: oxyCODONE SR TAB(*) 10 MG TAB.SR PO SCH ×4 (09:58→19:54)
[2016-07-05] MEDS: Acetaminophen TAB* 325 MG PO SCH ×3 (10:02→19:53)
[2016-07-05] MEDS: DOXYcycline CAP(*) 100 MG PO SCH ×3 (10:03→17:52)
--- NOTE | 2016-07-05 13:16 | PN ---
Subjective Date of Service: 07/05/16 Interval History: Patient seen this afternoon. Says she has been having some knee pain, otherwise no complaints. Just met with business process representative from [employer] Has been using tilt- table, up to 40% Family History: Unchanged from Admission Social History: Unchanged from Admission Past Medical History: Unchanged from Admission Objective Active Medications: Acetaminophen (Tylenol Tab*) 650 mg PO Q4H PRN Acetaminophen (Tylenol Tab*) 650 mg PO TID [facility] Alprazolam (Xanax Tab*) 0.5 mg PO Q4H PRN Diphenhydramine HCl (Benadryl Po*) 25 mg PO Q6H PRN Docusate Sodium (Colace Cap*) 100 mg PO BID PRN Doxycycline Hyclate (Vibramycin Cap(*)) 100 mg PO 0900,1300,1800 [facility] Ergocalciferol (Drisdol Cap*) 50,000 unit PO Q7D [facility] Ferrous Sulfate (Ferrous Sulfate Tab*) 325 mg PO DAILY [facility] Heparin Sodium (Porcine) (Heparin Vial(*)) 5,000 units SUBCUT Q8HR [facility] Metoclopramide HCl (Reglan Tab*) 10 mg PO ACHS [facility] Multivitamins/Minerals (Theragran/Minerals Tab*) 1 tab PO DAILY [facility] Oxybutynin Chloride (Ditropan Tab*) 5 mg PO BID PRN Oxycodone HCl (Oxycontin(*)) 10 mg PO Q12HR [facility] Oxycodone/Acetaminophen (Percocet 5/325 Tab*) 1 tab PO Q4H PRN Polyethylene Glycol/Electrolytes (Miralax*) 17 gm PO DAILY [facility] Prochlorperazine (Compazine Tab*) 10 mg PO Q6H PRN Senna (Senokot Tab*) 1 tab PO BEDTIME [facility] Sertraline HCl (Zoloft*) 200 mg PO DAILY [facility] Trimethobenzamide HCl (Tigan Cap*) 300 mg PO Q8H PRN Vital Signs 07/04/16 07/04/16 07/04/16 15:59 17:56 20:00 Temperature Pulse Rate Respiratory 18 16 18 Rate Blood Pressure (mmHg) O2 Sat by Pulse Oximetry 07/04/16 07/04/16 07/04/16 21:51 21:52 23:20 Temperature Pulse Rate Respiratory 18 18 Rate Blood Pressure (mmHg) O2 Sat by Pulse 98 Oximetry Oxygen Devices in Use Now: Nasal Cannula Appearance: Middle-aged, F, laying in chair in NAD Eyes: No Scleral Icterus Ears/Nose/Mouth/Throat: Mucous Membranes Moist Neck: NL Appearance and Movements; NL JVP Respiratory: Symmetrical Chest Expansion and Respiratory Effort, Clear to Auscultation Cardiovascular: NL Sounds; No Murmurs; No JVD, RRR Abdominal: - - Obese, soft, NTND, BS+ Lymphatic: No Cervical Adenopathy Extremities: - - RLE scar, well healing Neurological: Alert and Oriented x 3 Result Diagrams: 07/02/16 06:51 07/02/16 06:51 Assess/Plan/Problems-Billing Ms. Anthony is a 45 yo female with a PMHx of super morbid obesity with BMI 105 and anxiety/depression who originally presented with R lower leg fracture s/p ORIF 03/17 complicated by wound dehiscence and deep infection s/p multiple return trips to OR, now with wound vac who continues to be NWB on right. - Patient Problems (1) Fracture of right tibia and fibula Current Visit: Yes Comment: - S/P ORIF right tib-fib 03/17/16. S/P wound dehiscence and multiple trips to OR for debridement. - started Tilt table on 06/14/16 with 20% of weight, increase 10% weekly as per Ortho recommendation, has been increasing - Continue Doxycyline group home. - Continue oxycodone SR 10 mg BID. (2) Morbid obesity with BMI of 70 and over, adult Current Visit: Yes Comment: - Weight down to 528lbs. - Very motivated to continue diet. On MVI, vit D3, FeSO4. (3) TSH elevation Current Visit: Yes Comment: Free T4 and T3 WNL. Plan to recheck TSH in 4/6 weeks (~07/24) (4) Depression Current Visit: Yes Comment: - Continue Zoloft 200mg daily. (5) DVT prophylaxis Current Visit: Yes Comment: - SQ Heparin. Status and Disposition: Swing status.
[2016-07-05] MEDS: Senna TAB PO SCH (19:57)
[2016-07-05] MEDS: ALPRAZolam TAB* 0.5 MG PO PRN (22:13)
[2016-07-06] MEDS: Heparin VIAL(*) 5000 UNITS/ML VIAL (FIVE THOUSAND) SUBCUT SCH ×3 (06:09→21:57)
[2016-07-06] MEDS: Acetaminophen TAB* 325 MG PO SCH ×3 (08:53→21:56)
[2016-07-06] MEDS: Ferrous Sulfate TAB* 325 MG PO SCH (08:53)
[2016-07-06] MEDS: DOXYcycline CAP(*) 100 MG PO SCH ×3 (08:53→17:54)
[2016-07-06] MEDS: Metoclopramide TAB* 10 MG PO SCH ×4 (08:54→21:56)
[2016-07-06] MEDS: oxyCODONE SR TAB(*) 10 MG TAB.SR PO SCH ×2 (08:54→21:56)
[2016-07-06] MEDS: Multivitamins/Minerals TAB PO SCH (08:55)
[2016-07-06] MEDS: oxyCODONE/Acetamin 5/325 MG* TAB PO PRN ×3 (08:55→21:57)
[2016-07-06] MEDS: Sertraline* 100 MG TAB PO SCH (08:55)
[2016-07-06] MEDS: ALPRAZolam TAB* 0.5 MG PO PRN (21:56)
[2016-07-06] MEDS: Senna TAB PO SCH (22:01)
[2016-07-07] MEDS: Heparin VIAL(*) 5000 UNITS/ML VIAL (FIVE THOUSAND) SUBCUT SCH ×3 (05:59→21:25)
[2016-07-07] MEDS: Metoclopramide TAB* 10 MG PO SCH ×4 (08:34→21:24)
[2016-07-07] MEDS: DOXYcycline CAP(*) 100 MG PO SCH ×3 (09:49→18:24)
[2016-07-07] MEDS: oxyCODONE/Acetamin 5/325 MG* TAB PO PRN ×2 (09:49→21:25)
[2016-07-07] MEDS: Ferrous Sulfate TAB* 325 MG PO SCH (09:50)
[2016-07-07] MEDS: Sertraline* 100 MG TAB PO SCH (09:50)
[2016-07-07] MEDS: Multivitamins/Minerals TAB PO SCH (09:50)
[2016-07-07] MEDS: Acetaminophen TAB* 325 MG PO SCH ×3 (09:52→21:24)
[2016-07-07] MEDS: oxyCODONE SR TAB(*) 10 MG TAB.SR PO SCH ×2 (09:52→21:24)
[2016-07-07] MEDS: ALPRAZolam TAB* 0.5 MG PO PRN (21:24)
[2016-07-07] MEDS: Senna TAB PO SCH (21:29)
[2016-07-08] MEDS: Heparin VIAL(*) 5000 UNITS/ML VIAL (FIVE THOUSAND) SUBCUT SCH ×3 (05:58→22:09)
[2016-07-08] MEDS: Metoclopramide TAB* 10 MG PO SCH ×4 (07:17→22:08)
[2016-07-08] MEDS: oxyCODONE/Acetamin 5/325 MG* TAB PO PRN ×3 (09:24→22:13)
[2016-07-08] MEDS: Acetaminophen TAB* 325 MG PO SCH ×3 (09:24→22:08)
[2016-07-08] MEDS: Sertraline* 100 MG TAB PO SCH (09:25)
[2016-07-08] MEDS: oxyCODONE SR TAB(*) 10 MG TAB.SR PO SCH ×2 (09:25→22:08)
[2016-07-08] MEDS: Ferrous Sulfate TAB* 325 MG PO SCH (09:25)
[2016-07-08] MEDS: DOXYcycline CAP(*) 100 MG PO SCH ×3 (09:25→18:18)
[2016-07-08] MEDS: Multivitamins/Minerals TAB PO SCH (09:25)
--- NOTE | 2016-07-08 16:31 | CONSULT ---
Consult Consult: [facility] MILDRED LINO, [employer]- [address], [address] [place] [address] [phone] Date: 07/08/16 Name: Kim Anthony : 1970 Sex: F Age: 46 yrs Referral source: [facility] bed Referral reason: medically supervised weight-loss (MSWL). This is a 46 year old female who was referred by Mildred Lino BURGLAR ALARM MECHANIC for medically supervised weight loss. HPI: No significant changes since her last visit. Has been working with PT and using arm bike on the weekends when PT not available. Has heard that she may be transferring to another facility in [place] and is anxious about this. Has been obsessing about popcorn and is wondering if she can have some tomorrow (air popped with Mrs Caal) Has also been craving vietnamese fries but told her not to bring them if she asks. Understands that this is mostly a response to stress. ROS: Const: No health changes CV: Denies cardiovascular symptoms. Resp: Denies respiratory symptoms. GI: Denies gastrointestinal symptoms. Musculo: Denies musculoskeletal symptoms. Neuro: Denies neurologic symptoms. Psych: Denies mood changes and suicidal thoughts. Medications Acetaminophen (Tylenol Tab*) 650 mg PO Q4H PRN PRN Reason: FEVER/PAIN Acetaminophen (Tylenol Tab*) 650 mg PO TID [facility] Last Admin: 07/08/16 13:24 Dose: 650 mg Alprazolam (Xanax Tab*) 0.5 mg PO Q4H PRN PRN Reason: ANXIETY Last Admin: 07/07/16 21:24 Dose: 0.5 mg Diphenhydramine HCl (Benadryl Po*) 25 mg PO Q6H PRN PRN Reason: ITCHY Docusate Sodium (Colace Cap*) 100 mg PO BID PRN PRN Reason: CONSTIPATION Last Admin: 06/13/16 09:05 Dose: 100 mg Doxycycline Hyclate (Vibramycin Cap(*)) 100 mg PO 0900,1300,1800 [facility] Last Admin: 07/08/16 13:23 Dose: 100 mg Ergocalciferol (Drisdol Cap*) 50,000 unit PO Q7D [facility] Stop: 07/22/16 20:01 Last Admin: 07/01/16 20:58 Dose: 50,000 unit Ferrous Sulfate (Ferrous Sulfate Tab*) 325 mg PO DAILY [facility] Last Admin: 07/08/16 09:25 Dose: Not Given Heparin Sodium (Porcine) (Heparin Vial(*)) 5,000 units SUBCUT Q8HR [facility] Last Admin: 07/08/16 13:25 Dose: 5,000 units Metoclopramide HCl (Reglan Tab*) 10 mg PO ACHS [facility] Last Admin: 07/08/16 12:07 Dose: 10 mg Multivitamins/Minerals (Theragran/Minerals Tab*) 1 tab PO DAILY [facility] Last Admin: 07/08/16 09:25 Dose: Not Given Oxybutynin Chloride (Ditropan Tab*) 5 mg PO BID PRN PRN Reason: BLADDER SPASMS Last Admin: 07/02/16 21:08 Dose: 5 mg Oxycodone HCl (Oxycontin(*)) 10 mg PO Q12HR [facility] Last Admin: 07/08/16 09:25 Dose: 10 mg Oxycodone/Acetaminophen (Percocet 5/325 Tab*) 1 tab PO Q4H PRN PRN Reason: PAIN Last Admin: 07/08/16 09:24 Dose: 1 tab Polyethylene Glycol/Electrolytes (Miralax*) 17 gm PO DAILY PRN PRN Reason: CONSTIPATION Prochlorperazine (Compazine Tab*) 10 mg PO Q6H PRN PRN Reason: NAUSEA Last Admin: 05/30/16 18:46 Dose: 10 mg Senna (Senokot Tab*) 1 tab PO BEDTIME [facility] Last Admin: 07/07/16 21:29 Dose: Not Given Sertraline HCl (Zoloft*) 200 mg PO DAILY [facility] Last Admin: 07/08/16 09:25 Dose: 200 mg Trimethobenzamide HCl (Tigan Cap*) 300 mg PO Q8H PRN PRN Reason: NAUSEA Last Admin: 06/30/16 10:34 Dose: 300 mg PMH: Health Maintenance: Primary Care Physician - Dr Gill Pap Smear - No hx of abnormal Mammogram - never Surgical Hx: Fx tib/fib - (03/2016) 17 rods/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 Reviewed, no changes. Usual Food Patterns: Food log reviewed Weight Hx: Weight 529 lb 4.8 oz Temp Pulse Resp BP Pulse Ox 98.9 F 74 18 116/57 96 07/08/16 08:11 07/08/16 08:11 07/08/16 11:25 07/08/16 08:11 07/08/16 08:11 Exam: Const: Appears healthy and well developed. Psych: Mood/Affect: Mood is normal. Affect is normal. Cognition: Orientation is intact to person, place and time. Judgment and insight are grossly intact. Full physical exam not indicated Assessment: 1. E66.01 Morbid (severe) obesity due to excess calories Comments: Her weight has been stable for the last few weeks and this type of plateau is not unexpected. There has been minimal change in dietary intake over the last week. Protein continues to be slightly >100 grams/day and could be higher but she is not feeling very hungry most of the time. Encouraged to focus on increasing her exercise over the next week. She is willing to use the arm ergometer in the evenings and will ask that it be moved into her room. It will be critical that she continues to have access to both adequate nutrition and a range of exercise equipment if she is transferred to a different facility. 2. G47.33 Obstructive sleep apnea (adult) (pediatric) Comments : Using CPAP as ordered 3. E55.9 Vitamin D deficiency, unspecified Comments : Continues to take weekly replacement. The plan of care was reviewed with the patient and the patient understood and agreed with the plan of care. Counseling and/or Coordination of Care: Time was a significant factor with this patient encounter. Total time spent with patient was 60 minutes, the entire time was spent on patient counseling and/or coordination of care. Seen by: Mildred Lino, RUSTY-BS, JAC
[2016-07-08] MEDS: ALPRAZolam TAB* 0.5 MG PO PRN (22:07)
[2016-07-08] MEDS: Ergocalciferol CAP* 50000 UNIT PO SCH (22:07)
[2016-07-08] MEDS: Senna TAB PO SCH (22:08)
[2016-07-09] MEDS: Heparin VIAL(*) 5000 UNITS/ML VIAL (FIVE THOUSAND) SUBCUT SCH ×3 (05:29→21:39)
[2016-07-09] MEDS: Metoclopramide TAB* 10 MG PO SCH ×4 (08:18→21:39)
[2016-07-09] MEDS: DOXYcycline CAP(*) 100 MG PO SCH ×3 (09:29→18:18)
[2016-07-09] MEDS: oxyCODONE SR TAB(*) 10 MG TAB.SR PO SCH ×2 (09:30→21:38)
[2016-07-09] MEDS: Multivitamins/Minerals TAB PO SCH (09:30)
[2016-07-09] MEDS: Ferrous Sulfate TAB* 325 MG PO SCH (09:30)
[2016-07-09] MEDS: Acetaminophen TAB* 325 MG PO SCH ×3 (09:30→21:37)
[2016-07-09] MEDS: oxyCODONE/Acetamin 5/325 MG* TAB PO PRN ×2 (09:31→21:37)
[2016-07-09] MEDS: Sertraline* 100 MG TAB PO SCH (09:31)
[2016-07-09] MEDS: Senna TAB PO SCH (21:37)
[2016-07-09] MEDS: ALPRAZolam TAB* 0.5 MG PO PRN (21:38)
[2016-07-10] MEDS: Heparin VIAL(*) 5000 UNITS/ML VIAL (FIVE THOUSAND) SUBCUT SCH ×3 (05:48→22:03)
[2016-07-10] MEDS: Metoclopramide TAB* 10 MG PO SCH ×4 (07:52→20:45)
[2016-07-10] MEDS: DOXYcycline CAP(*) 100 MG PO SCH ×3 (08:57→18:02)
[2016-07-10] MEDS: Sertraline* 100 MG TAB PO SCH (08:57)
[2016-07-10] MEDS: oxyCODONE SR TAB(*) 10 MG TAB.SR PO SCH ×2 (08:57→20:45)
[2016-07-10] MEDS: Ferrous Sulfate TAB* 325 MG PO SCH (08:58)
[2016-07-10] MEDS: Acetaminophen TAB* 325 MG PO SCH ×3 (08:58→20:44)
[2016-07-10] MEDS: Multivitamins/Minerals TAB PO SCH (08:58)
[2016-07-10] MEDS: Oxybutynin TAB* 5 MG PO PRN (20:46)
[2016-07-10] MEDS: Senna TAB PO SCH (20:47)
[2016-07-10] MEDS: ALPRAZolam TAB* 0.5 MG PO PRN (22:00)
[2016-07-11] MEDS: Heparin VIAL(*) 5000 UNITS/ML VIAL (FIVE THOUSAND) SUBCUT SCH ×3 (06:13→22:34)
[2016-07-11] MEDS: Metoclopramide TAB* 10 MG PO SCH ×4 (07:55→20:38)
--- NOTE | 2016-07-11 09:03 | PN ---
Progress Note - Progress Note SOAP: Subjective: Pt doing well, continues to do short time of 50% WB with tilt table. Denies pain in right leg Objective: Vital Signs: Temp Pulse Resp BP Pulse Ox 98.4 F 70 16 124/59 97 07/11/16 08:30 07/11/16 08:30 07/11/16 08:30 07/11/16 08:30 07/11/16 08:30 Gen: A & Ox3, NAD at rest RLE: Incision well healed, leg without edema or erythema. Good ROM at ankle, MTPs, N/V intact Assessment: S/P right tibia ORIF Plan: Cont WB with tilt table as outlined Cont medically supervised weight loss Ortho to continue to follow as needed
[2016-07-11] MEDS: Ferrous Sulfate TAB* 325 MG PO SCH (09:32)
[2016-07-11] MEDS: Sertraline* 100 MG TAB PO SCH (09:32)
[2016-07-11] MEDS: Acetaminophen TAB* 325 MG PO SCH ×3 (09:33→20:39)
[2016-07-11] MEDS: oxyCODONE SR TAB(*) 10 MG TAB.SR PO SCH ×2 (09:33→20:38)
[2016-07-11] MEDS: Multivitamins/Minerals TAB PO SCH (09:33)
[2016-07-11] MEDS: DOXYcycline CAP(*) 100 MG PO SCH ×3 (09:33→18:46)
[2016-07-11] MEDS: oxyCODONE/Acetamin 5/325 MG* TAB PO PRN (20:38)
[2016-07-11] MEDS: ALPRAZolam TAB* 0.5 MG PO PRN (20:38)
[2016-07-11] MEDS: Senna TAB PO SCH (20:39)
[2016-07-12] MEDS: Heparin VIAL(*) 5000 UNITS/ML VIAL (FIVE THOUSAND) SUBCUT SCH ×3 (05:35→21:39)
[2016-07-12 07:20] LABS: Ferritin 34.9 ng/mL (11-307)
[2016-07-12] MEDS: Metoclopramide TAB* 10 MG PO SCH ×4 (08:07→20:29)
[2016-07-12] MEDS: Acetaminophen TAB* 325 MG PO SCH ×3 (09:29→20:29)
[2016-07-12] MEDS: Sertraline* 100 MG TAB PO SCH (09:30)
[2016-07-12] MEDS: oxyCODONE/Acetamin 5/325 MG* TAB PO PRN (09:30)
[2016-07-12] MEDS: oxyCODONE SR TAB(*) 10 MG TAB.SR PO SCH (09:30)
[2016-07-12] MEDS: Ferrous Sulfate TAB* 325 MG PO SCH (09:30)
[2016-07-12] MEDS: Multivitamins/Minerals TAB PO SCH (09:31)
[2016-07-12] MEDS: DOXYcycline CAP(*) 100 MG PO SCH ×3 (09:34→18:12)
--- NOTE | 2016-07-12 16:04 | PN ---
Subjective Date of Service: 07/12/16 Interval History: Occ pain L knee relieved by oxy/APAP. No bowel c/o. Family History: Unchanged from Admission Social History: Unchanged from Admission Past Medical History: Unchanged from Admission Objective Active Medications: Acetaminophen (Tylenol Tab*) 650 mg PO Q4H PRN PRN Reason: FEVER/PAIN Acetaminophen (Tylenol Tab*) 650 mg PO TID [facility] Last Admin: 07/12/16 13:03 Dose: 650 mg Diphenhydramine HCl (Benadryl Po*) 25 mg PO Q6H PRN PRN Reason: ITCHY Docusate Sodium (Colace Cap*) 100 mg PO BID PRN PRN Reason: CONSTIPATION Last Admin: 06/13/16 09:05 Dose: 100 mg Doxycycline Hyclate (Vibramycin Cap(*)) 100 mg PO 0900,1300,1800 [facility] Last Admin: 07/12/16 13:02 Dose: 100 mg Ergocalciferol (Drisdol Cap*) 50,000 unit PO Q7D [facility] Stop: 07/22/16 20:01 Last Admin: 07/08/16 22:07 Dose: 50,000 unit Ferrous Sulfate (Ferrous Sulfate Tab*) 325 mg PO DAILY [facility] Last Admin: 07/12/16 09:30 Dose: 325 mg Heparin Sodium (Porcine) (Heparin Vial(*)) 5,000 units SUBCUT Q8HR [facility] Last Admin: 07/12/16 13:02 Dose: 5,000 units Metoclopramide HCl (Reglan Tab*) 10 mg PO ACHS [facility] Last Admin: 07/12/16 11:23 Dose: 10 mg Multivitamins/Minerals (Theragran/Minerals Tab*) 1 tab PO DAILY [facility] Last Admin: 07/12/16 09:31 Dose: 1 tab Oxybutynin Chloride (Ditropan Tab*) 5 mg PO BID PRN PRN Reason: BLADDER SPASMS Last Admin: 07/10/16 20:46 Dose: 5 mg Oxycodone/Acetaminophen (Percocet 5/325 Tab*) 1 tab PO Q4H PRN PRN Reason: PAIN Last Admin: 07/12/16 09:30 Dose: 1 tab Polyethylene Glycol/Electrolytes (Miralax*) 17 gm PO DAILY PRN PRN Reason: CONSTIPATION Prochlorperazine (Compazine Tab*) 10 mg PO Q6H PRN PRN Reason: NAUSEA Last Admin: 05/30/16 18:46 Dose: 10 mg Senna (Senokot Tab*) 1 tab PO BEDTIME [facility] Last Admin: 07/11/16 20:39 Dose: Not Given Sertraline HCl (Zoloft*) 200 mg PO DAILY [facility] Last Admin: 07/12/16 09:30 Dose: 200 mg Trimethobenzamide HCl (Tigan Cap*) 300 mg PO Q8H PRN PRN Reason: NAUSEA Last Admin: 06/30/16 10:34 Dose: 300 mg Vital Signs 07/11/16 07/11/16 07/11/16 20:38 20:48 22:38 Temperature Pulse Rate Respiratory 18 18 18 Rate Blood Pressure (mmHg) O2 Sat by Pulse Oximetry 07/12/16 07/12/16 07/12/16 08:00 09:30 12:06 Temperature 98.4 F Pulse Rate 75 Respiratory 16 16 18 Rate Blood Pressure 124/48 (mmHg) O2 Sat by Pulse 98 Oximetry Oxygen Devices in Use Now: CPAP/BiPAP Appearance: Alert partly up in bed. In good spirits. Looks comfortable. Extremities: No Edema, No Clubbing, Cyanosis Skin: No Nodules or Sclerosis, - - R ankle surgical wound healed. Neurological: Alert and Oriented x 3, NL Sensation Result Diagrams: 07/02/16 06:51 07/02/16 06:51 Assess/Plan/Problems-Billing Ms. Anthony is a 45 yo female with a PMHx of super morbid obesity with BMI 105 and anxiety/depression who originally presented with R lower leg fracture s/p ORIF 03/17 complicated by wound dehiscence and deep infection s/p multiple return trips to OR, now with wound vac who continues to be NWB on right. - Patient Problems (1) Fracture of right tibia and fibula Current Visit: Yes Status: Acute Code(s): S82.201A - UNSP FRACTURE OF SHAFT OF RIGHT TIBIA, INIT FOR CLOS FX; S82.401A - UNSP FRACTURE OF SHAFT OF RIGHT FIBULA, INIT FOR CLOS FX SNOMED Code(s): 04009606 Comment: - S/P ORIF right tib-fib 03/17/16. S/P wound dehiscence and multiple trips to OR for debridement. - started Tilt table on 06/14/16 with 20% of weight, up to 50% aas of 07/12/16. Continue Doxycyline terminal system operator. - Last dose oxycodone SR 10 mg BID was AM 07/12/16. Patient agreed to stop this. (2) Morbid obesity with BMI of 70 and over, adult Current Visit: Yes Status: Chronic Code(s): E66.9 - OBESITY, UNSPECIFIED; Z68.45 - BODY MASS INDEX (BMI) 70 OR GREATER, ADULT SNOMED Code(s): 687889297 Comment: - Weight down to 528lbs. - Very motivated to continue diet. On MVI, vit D3, FeSO4. Prealbumin up to 13 on 07/12/16, ferritin up to 34.9, total vit D pending. (3) Anemia Current Visit: No Status: Chronic Code(s): D64.9 - ANEMIA, UNSPECIFIED SNOMED Code(s): 567688758 Comment: Appears to be anemia of chronic disease and acute blood loss anemia (per ortho, she lost quite a lot of blood during initial surgery). Reduce Ferrous sulfate to one daily. (4) Arthritis Current Visit: Yes Status: Acute Code(s): M19.90 - UNSPECIFIED OSTEOARTHRITIS, UNSPECIFIED SITE SNOMED Code(s): 3002508 Comment: Scheduled APAP 650 mg tid for L knee pain. Status and Disposition: Swing status.
[2016-07-12] MEDS: Oxybutynin TAB* 5 MG PO PRN (20:29)
[2016-07-12] MEDS: Senna TAB PO SCH (20:31)
[2016-07-12] MEDS: ALPRAZolam TAB* 0.5 MG PO PRN (22:39)
[2016-07-13] MEDS: Heparin VIAL(*) 5000 UNITS/ML VIAL (FIVE THOUSAND) SUBCUT SCH ×3 (05:56→21:28)
[2016-07-13] MEDS: Metoclopramide TAB* 10 MG PO SCH ×4 (07:54→21:27)
[2016-07-13] MEDS: Multivitamins/Minerals TAB PO SCH (08:51)
[2016-07-13] MEDS: Acetaminophen TAB* 325 MG PO SCH ×3 (08:51→22:13)
[2016-07-13] MEDS: Sertraline* 100 MG TAB PO SCH (08:52)
[2016-07-13] MEDS: DOXYcycline CAP(*) 100 MG PO SCH ×3 (08:52→18:26)
[2016-07-13] MEDS: Ferrous Sulfate TAB* 325 MG PO SCH (08:52)
[2016-07-13] MEDS: oxyCODONE/Acetamin 5/325 MG* TAB PO PRN ×2 (08:55→21:27)
[2016-07-13] MEDS: Senna TAB PO SCH (22:12)
[2016-07-14] MEDS: Heparin VIAL(*) 5000 UNITS/ML VIAL (FIVE THOUSAND) SUBCUT SCH ×3 (06:13→20:53)
[2016-07-14] MEDS: Metoclopramide TAB* 10 MG PO SCH ×4 (07:55→20:52)
[2016-07-14] MEDS: Ferrous Sulfate TAB* 325 MG PO SCH (09:18)
[2016-07-14] MEDS: oxyCODONE/Acetamin 5/325 MG* TAB PO PRN ×3 (09:18→21:55)
[2016-07-14] MEDS: Sertraline* 100 MG TAB PO SCH (09:18)
[2016-07-14] MEDS: DOXYcycline CAP(*) 100 MG PO SCH ×3 (09:19→18:37)
[2016-07-14] MEDS: Acetaminophen TAB* 325 MG PO SCH ×3 (09:19→20:53)
[2016-07-14] MEDS: Multivitamins/Minerals TAB PO SCH (09:19)
[2016-07-14] MEDS: ALPRAZolam TAB* 0.5 MG PO PRN (20:52)
[2016-07-14] MEDS: Senna TAB PO SCH (20:53)
[2016-07-15] MEDS: oxyCODONE/Acetamin 5/325 MG* TAB PO PRN ×5 (02:10→22:31)
[2016-07-15] MEDS: Heparin VIAL(*) 5000 UNITS/ML VIAL (FIVE THOUSAND) SUBCUT SCH ×3 (05:41→22:30)
[2016-07-15] MEDS: Metoclopramide TAB* 10 MG PO SCH ×4 (07:46→20:25)
[2016-07-15] MEDS: Sertraline* 100 MG TAB PO SCH (08:57)
[2016-07-15] MEDS: Multivitamins/Minerals TAB PO SCH (08:58)
[2016-07-15] MEDS: Ferrous Sulfate TAB* 325 MG PO SCH (08:58)
[2016-07-15] MEDS: DOXYcycline CAP(*) 100 MG PO SCH ×3 (09:03→18:07)
[2016-07-15] MEDS: Acetaminophen TAB* 325 MG PO SCH ×3 (09:13→20:26)
[2016-07-15] MEDS: Ergocalciferol CAP* 50000 UNIT PO SCH (20:25)
[2016-07-15] MEDS: Senna TAB PO SCH (20:44)
[2016-07-15] MEDS: Oxybutynin TAB* 5 MG PO PRN (22:31)
[2016-07-15] MEDS: ALPRAZolam TAB* 0.5 MG PO PRN (22:31)
[2016-07-16] MEDS: oxyCODONE/Acetamin 5/325 MG* TAB PO PRN ×4 (05:54→22:00)
[2016-07-16] MEDS: Heparin VIAL(*) 5000 UNITS/ML VIAL (FIVE THOUSAND) SUBCUT SCH ×3 (05:54→22:01)
[2016-07-16] MEDS: Metoclopramide TAB* 10 MG PO SCH ×4 (08:16→20:34)
[2016-07-16] MEDS: DOXYcycline CAP(*) 100 MG PO SCH ×3 (09:44→17:59)
[2016-07-16] MEDS: Sertraline* 100 MG TAB PO SCH (09:45)
[2016-07-16] MEDS: Multivitamins/Minerals TAB PO SCH (09:46)
[2016-07-16] MEDS: Ferrous Sulfate TAB* 325 MG PO SCH (09:46)
[2016-07-16] MEDS: Acetaminophen TAB* 325 MG PO SCH (09:46)
--- NOTE | 2016-07-16 10:36 | PN ---
Progress Note - Progress Note SOAP: Subjective: [46 y.o female s/p right tibia ORIF 03/2016, morbid obesity. Tilt table to 50% , tolerating well, no complaints. Feeling encouraged about process. ] Objective: [GEneral- Lying in bed comfortably, NAD MSK- Incision C/D/I Vital Signs Temp 98.2 F 07/15/16 12:23 Pulse 75 07/15/16 12:23 Resp 16 07/16/16 05:54 BP 101/53 07/15/16 12:23 Pulse Ox 98 07/15/16 18:22 Intake & Output 07/15/16 07/16/16 07/16/16 18:59 06:59 18:59 Intake Total 1330 1460 460 Output Total 1200 1675 Balance 130 -215 460 Weight 512 lb 14.4 oz Intake: Oral 1330 1460 460 Output: Golden 1200 1675 Other: Date of Last Bowel 07/15/16 Movement # Bowel Movements 2 Estimated Stool Amount Medium ] Assessment: [46 y.o female s/p right tibia ORIF 03/2016, morbid obesity] Plan: [- Continue treatment plan, progressing well ] Active Medications Generic Name Dose Route Start Last Admin Trade Name Freq PRN Reason Stop Dose Admin Acetaminophen 650 mg 05/13/16 16:15 Tylenol Tab* PO Q4H PRN FEVER/PAIN Acetaminophen 650 mg 06/05/16 21:00 07/16/16 09:46 Tylenol Tab* PO Not Given TID [facility] Alprazolam 0.5 mg 07/12/16 22:08 07/15/16 22:31 Xanax Tab* PO 0.5 mg Q4H PRN Administration ANXIETY Diphenhydramine HCl 25 mg 05/13/16 16:17 Benadryl Po* PO Q6H PRN ITCHY Docusate Sodium 100 mg 05/13/16 16:17 06/13/16 09:05 Colace Cap* PO 100 mg BID PRN Administration CONSTIPATION Doxycycline Hyclate 100 mg 05/28/16 18:00 07/16/16 09:44 Vibramycin Cap(*) PO 100 mg 0900,1300,1800 [facility] Administration Ergocalciferol 50,000 unit 06/03/16 20:00 07/15/16 20:25 Drisdol Cap* PO 07/22/16 20:01 50,000 unit Q7D [facility] Administration Ferrous Sulfate 325 mg 06/06/16 09:00 07/16/16 09:46 Ferrous Sulfate Tab* PO Not Given DAILY [facility] Heparin Sodium (Porcine) 5,000 units 05/13/16 22:00 07/16/16 05:54 Heparin Vial(*) SUBCUT 5,000 units Q8HR [facility] Administration Metoclopramide HCl 10 mg 05/24/16 11:30 07/16/16 08:16 Reglan Tab* PO 10 mg ACHS [facility] Administration Multivitamins/Minerals 1 tab 05/22/16 09:00 07/16/16 09:46 Theragran/Minerals Tab* PO Not Given DAILY [facility] Oxybutynin Chloride 5 mg 05/13/16 16:21 07/15/16 22:31 Ditropan Tab* PO 5 mg BID PRN Administration BLADDER SPASMS Oxycodone/Acetaminophen 1 tab 07/05/16 09:43 07/16/16 05:54 Percocet 5/325 Tab* PO 1 tab Q4H PRN Administration PAIN Polyethylene Glycol/Electrolytes 17 gm 05/13/16 16:23 Miralax* PO DAILY PRN [facility] Prochlorperazine 10 mg 05/26/16 09:31 05/30/16 18:46 Compazine Tab* PO 10 mg Q6H PRN Administration NAUSEA Senna 1 tab 05/13/16 21:00 07/15/16 20:44 Senokot Tab* PO Not Given BEDTIME [facility] Sertraline HCl 200 mg 05/14/16 09:00 07/16/16 09:45 Zoloft* PO 200 mg DAILY [facility] Administration Trimethobenzamide HCl 300 mg 05/26/16 09:31 06/30/16 10:34 Tigan Cap* PO 300 mg Q8H PRN Administration NAUSEA
--- NOTE | 2016-07-16 11:54 | CONSULT ---
Consult Consult: Date: 07/15/16 Name: Kim Anthony : 1970 Sex: F Age: 46 yrs Referral source: Mildred Lino NP Referral reason: medically supervised weight-loss (MSWL). This is a 46 year old female who was referred by [facility] bed status for medically supervised weight loss. HPI: Feeling well but had a difficult week worrying about being transferred to another facility. Has been trying to increase her activity as discussed last week. No real change in her food pattern. Finds logging very helpful. Has had her pain medication discontinued and feels ok with her activity ROS: Const: No health changes CV: Denies cardiovascular symptoms. Resp: Denies respiratory symptoms. GI: Denies gastrointestinal symptoms. Musculo: Denies musculoskeletal symptoms. Neuro: Denies neurologic symptoms. Psych: Denies mood changes and suicidal thoughts. Active Medications Generic Name Dose Route Start Last Admin Trade Name Freq PRN Reason Stop Dose Admin Acetaminophen 650 mg 05/13/16 16:15 Tylenol Tab* PO Q4H PRN FEVER/PAIN Acetaminophen 650 mg 06/05/16 21:00 07/16/16 09:46 Tylenol Tab* PO Not Given TID [facility] Alprazolam 0.5 mg 07/12/16 22:08 07/15/16 22:31 Xanax Tab* PO 0.5 mg Q4H PRN Administration ANXIETY Diphenhydramine HCl 25 mg 05/13/16 16:17 Benadryl Po* PO Q6H PRN ITCHY Docusate Sodium 100 mg 05/13/16 16:17 06/13/16 09:05 Colace Cap* PO 100 mg BID PRN Administration CONSTIPATION Doxycycline Hyclate 100 mg 05/28/16 18:00 07/16/16 09:44 Vibramycin Cap(*) PO 100 mg 0900,1300,1800 [facility] Administration Ergocalciferol 50,000 unit 06/03/16 20:00 07/15/16 20:25 Drisdol Cap* PO 07/22/16 20:01 50,000 unit Q7D [facility] Administration Ferrous Sulfate 325 mg 06/06/16 09:00 07/16/16 09:46 Ferrous Sulfate Tab* PO Not Given DAILY [facility] Heparin Sodium (Porcine) 5,000 units 05/13/16 22:00 07/16/16 05:54 Heparin Vial(*) SUBCUT 5,000 units Q8HR [facility] Administration Metoclopramide HCl 10 mg 05/24/16 11:30 07/16/16 11:25 Reglan Tab* PO 10 mg ACHS [facility] Administration Multivitamins/Minerals 1 tab 05/22/16 09:00 07/16/16 09:46 Theragran/Minerals Tab* PO Not Given DAILY [facility] Oxybutynin Chloride 5 mg 05/13/16 16:21 07/15/16 22:31 Ditropan Tab* PO 5 mg BID PRN Administration BLADDER SPASMS Oxycodone/Acetaminophen 1 tab 07/05/16 09:43 07/16/16 11:25 Percocet 5/325 Tab* PO 1 tab Q4H PRN Administration PAIN Polyethylene Glycol/Electrolytes 17 gm 05/13/16 16:23 Miralax* PO DAILY PRN [facility] Prochlorperazine 10 mg 05/26/16 09:31 05/30/16 18:46 Compazine Tab* PO 10 mg Q6H PRN Administration NAUSEA Senna 1 tab 05/13/16 21:00 07/15/16 20:44 Senokot Tab* PO Not Given BEDTIME [facility] Sertraline HCl 200 mg 05/14/16 09:00 07/16/16 09:45 Zoloft* PO 200 mg DAILY [facility] Administration Trimethobenzamide HCl 300 mg 05/26/16 09:31 06/30/16 10:34 Tigan Cap* PO 300 mg Q8H PRN Administration NAUSEA Allergies Allergy/AdvReac Type Severity Reaction Status Date / Time Ondansetron [From Zofran] Allergy Shortness Verified 03/22/16 09:03 of Breath PMH: Health Maintenance: Primary Care Physician - Dr Gill Pap Smear - No hx of abnormal Mammogram - never Surgical Hx: Fx tib/fib - (03/2016) 17 rods/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 FH: Mother - mental health issues (not diagnosed), hx of obesity Father - DE and stent placement; hyperlipidemia, hypertension, aortic stenosis, smoker Sister - A&W MGM - obesity, A&W Reviewed, no changes. SH: Marital: . Lives With: Spouse, Daughter. 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 Hobbies: Reading. Reviewed, no changes. Usual Food Patterns: Log reviewed Weight 512 lb 14.4 oz (07/16/16) Temp Pulse Resp BP Pulse Ox 98.2 F 75 18 101/53 98 07/15/16 12:23 07/15/16 12:23 07/16/16 11:25 07/15/16 12:23 07/15/16 18:22 Exam: Const: Appears healthy and well developed. Psych: Mood/Affect: Mood is normal. Affect is normal. Cognition: Orientation is intact to person, place and time. Judgment and insight are grossly intact. Full physical exam not indicated Assessment: 1. E66.01 Morbid (severe) obesity due to excess calories Approximate 10 pound weight loss since last week. Her food intake is very similar from day to day. She is using the food log to record satiety and how her emotions/feelings impact her desire to eat. She is making good progress with mindful eating techniques and has been discussing her insights with her and daughter. They have discussed how to improve their home environment to support different behavior around food. She was encouraged to focus on improving her strength and cardiovascular conditioning with exercise. She has the tools available to her and needs minimal assist for an afternoon and evening exercise period. She is making good progress with food relationship issues and has been finding visits from the food processing chemist very helpful. She is very open to therapy as she goes through this process. 2. G47.33 Obstructive sleep apnea (adult) (pediatric) Comments : Using CPAP as ordered 3. E55.9 Vitamin D deficiency, unspecified Comments : Continues to take weekly replacement. Goals : 1. Continue keeping a food log. Include satiety level in your log as well as noting emotional triggers for eating. 2. Add another exercise session daily - try to use the arm ergometer or theraband for at least 10-15 minutes in the afternoon in addition to what you have been doing in the evening. The plan of care was reviewed with the patient and the patient understood and agreed with the plan of care. Counseling and/or Coordination of Care: Time was a significant factor with this patient encounter. Total time spent with patient was 50 minutes, the entire time was spent on patient counseling and/or coordination of care. Seen by:
[2016-07-16] MEDS: Oxybutynin TAB* 5 MG PO PRN (20:34)
[2016-07-16] MEDS: Senna TAB PO SCH (20:34)
[2016-07-16] MEDS: ALPRAZolam TAB* 0.5 MG PO PRN (22:00)
[2016-07-17] MEDS: oxyCODONE/Acetamin 5/325 MG* TAB PO PRN ×3 (05:00→20:59)
[2016-07-17] MEDS: Heparin VIAL(*) 5000 UNITS/ML VIAL (FIVE THOUSAND) SUBCUT SCH ×3 (05:49→21:56)
[2016-07-17] MEDS: Metoclopramide TAB* 10 MG PO SCH ×4 (08:27→20:59)
[2016-07-17] MEDS: DOXYcycline CAP(*) 100 MG PO SCH ×3 (08:56→17:50)
[2016-07-17] MEDS: Ferrous Sulfate TAB* 325 MG PO SCH (08:56)
[2016-07-17] MEDS: Multivitamins/Minerals TAB PO SCH (08:57)
[2016-07-17] MEDS: Sertraline* 100 MG TAB PO SCH (08:57)
--- NOTE | 2016-07-17 09:08 | PN ---
Progress Note - Progress Note SOAP: Subjective: Patient resting comfortably with no complaints Objective: Vital Signs Temp Pulse Resp BP Pulse Ox 98.1 F 80 18 129/62 94 07/17/16 07:28 07/17/16 07:28 07/17/16 07:28 07/17/16 07:28 07/17/16 07:28 incision: c/d/; well healed PE: NVI Assessment: s/p ORIF right tibia (03/2016) Plan: continue PT- partial WB continue current treatment plan
[2016-07-17] MEDS: Oxybutynin TAB* 5 MG PO PRN ×2 (10:29→20:59)
[2016-07-17 15:41] LABS: Hematocrit 30 % (35-47); Hemoglobin 9.5 g/dl (12.0-16.0); Mean Corpuscular HGB Conc 32 g/dl (31-36); Mean Corpuscular Hemoglobin 27 pg (27-31); Mean Corpuscular Volume 82 fL (80-97); Mean Platelet Volume 7 um3 (7.4-10.4); Red Blood Count 3.59 10^6/ul (4.0-5.4); Red Cell Distribution Width 18 % (10.5-15)
[2016-07-17 15:55] LABS: BUN/Creatinine Ratio 27.1 (8-20); Calcium 9.3 mg/dL (8.6-10.3); EGFR African American 92.6 (>60)
--- NOTE | 2016-07-17 16:11 | PN ---
Subjective Date of Service: 07/17/16 Interval History: Seen and examined at bedside [place] more "lethargic" this AM when waking up. Slept as usual with CPAP but was concerned for hypoxia given previous presentation. Also noted bleeding at site of heparin injection on left arm that required pressure to tamponade Otherwise in good spirits without complaints Family History: Unchanged from Admission Social History: Unchanged from Admission Past Medical History: Unchanged from Admission Objective Active Medications: Acetaminophen (Tylenol Tab*) 650 mg PO Q4H PRN PRN Reason: FEVER/PAIN Alprazolam (Xanax Tab*) 0.5 mg PO Q4H PRN PRN Reason: ANXIETY Last Admin: 07/16/16 22:00 Dose: 0.5 mg Diphenhydramine HCl (Benadryl Po*) 25 mg PO Q6H PRN PRN Reason: ITCHY Docusate Sodium (Colace Cap*) 100 mg PO BID PRN PRN Reason: CONSTIPATION Last Admin: 06/13/16 09:05 Dose: 100 mg Doxycycline Hyclate (Vibramycin Cap(*)) 100 mg PO 0900,1300,1800 [facility] Last Admin: 07/17/16 14:04 Dose: 100 mg Ergocalciferol (Drisdol Cap*) 50,000 unit PO Q7D [facility] Stop: 07/22/16 20:01 Last Admin: 07/15/16 20:25 Dose: 50,000 unit Ferrous Sulfate (Ferrous Sulfate Tab*) 325 mg PO DAILY [facility] Last Admin: 07/17/16 08:56 Dose: 325 mg Heparin Sodium (Porcine) (Heparin Vial(*)) 5,000 units SUBCUT Q8HR [facility] Last Admin: 07/17/16 14:04 Dose: 5,000 units Metoclopramide HCl (Reglan Tab*) 10 mg PO ACHS [facility] Last Admin: 07/17/16 12:16 Dose: 10 mg Multivitamins/Minerals (Theragran/Minerals Tab*) 1 tab PO DAILY [facility] Last Admin: 07/17/16 08:57 Dose: 1 tab Oxybutynin Chloride (Ditropan Tab*) 5 mg PO BID PRN PRN Reason: BLADDER SPASMS Last Admin: 07/17/16 10:29 Dose: 5 mg Polyethylene Glycol/Electrolytes (Miralax*) 17 gm PO DAILY PRN PRN Reason: CONSTIPATION Prochlorperazine (Compazine Tab*) 10 mg PO Q6H PRN PRN Reason: NAUSEA Last Admin: 05/30/16 18:46 Dose: 10 mg Senna (Senokot Tab*) 1 tab PO BEDTIME [facility] Last Admin: 07/16/16 20:34 Dose: Not Given Sertraline HCl (Zoloft*) 200 mg PO DAILY [facility] Last Admin: 07/17/16 08:57 Dose: 200 mg Trimethobenzamide HCl (Tigan Cap*) 300 mg PO Q8H PRN PRN Reason: NAUSEA Last Admin: 06/30/16 10:34 Dose: 300 mg Vital Signs 07/16/16 07/16/16 07/16/16 16:56 17:52 18:56 Temperature Pulse Rate Respiratory 18 17 Rate Blood Pressure (mmHg) O2 Sat by Pulse 98 Oximetry 07/16/16 07/16/16 07/16/16 19:56 19:58 22:00 Temperature Pulse Rate Respiratory 17 17 17 Rate Blood Pressure (mmHg) O2 Sat by Pulse Oximetry 07/17/16 07/17/16 07/17/16 00:00 05:00 05:45 Temperature Pulse Rate Respiratory 16 16 Rate Blood Pressure (mmHg) O2 Sat by Pulse 100 Oximetry 07/17/16 07/17/16 07/17/16 07:28 08:00 12:15 Temperature 98.1 F Pulse Rate 80 Respiratory 18 18 16 Rate Blood Pressure 129/62 (mmHg) O2 Sat by Pulse 94 Oximetry Oxygen Devices in Use Now: CPAP/BiPAP Appearance: interactive, NAD Eyes: No Scleral Icterus, PERRLA Ears/Nose/Mouth/Throat: NL Teeth, Lips, Gums, Clear Oropharnyx, Mucous Membranes Moist Neck: NL Appearance and Movements; NL JVP, Trachea Midline Respiratory: Symmetrical Chest Expansion and Respiratory Effort, Clear to Auscultation Cardiovascular: NL Sounds; No Murmurs; No JVD, RRR Abdominal: NL Sounds; No Tenderness; No Distention Extremities: - - 1+ LE edema Skin: - - mild pretibial erythema, no associated warmth Neurological: Alert and Oriented x 3 Lines/Tubes/Other Access: Clean, Dry and Intact Golden Result Diagrams: 07/17/16 15:30 07/17/16 15:30 Assess/Plan/Problems-Billing Ms. Anthony is a 45 yo female with a PMHx of super morbid obesity with BMI 105 ( now improved to 90), anxiety/depression who originally presented with R lower leg fracture s/p ORIF 03/17 complicated by wound dehiscence and deep infection s /p multiple return trips to OR, wound vac (now removed) who is undergoing medically supervised weight loss and mobilization with success. - Patient Problems (1) Vitamin D deficiency Comment: 1 additional dose 50,000 remaining start Vit D 200U daily 07/18/2016 (2) Bleeding Comment: Noted at site of heparin injection Platelets wnl follow can consider coags and further investigation if recurs (3) Arthritis Comment: APAP 650 mg PRN (4) Fracture of right tibia and fibula Comment: - S/P ORIF right tib-fib 03/17/16. S/P wound dehiscence and multiple trips to OR for debridement. - started Tilt table on 06/14/16 with 20% of weight, up to 50% aas of 07/12/16. Performing tilt table every other day for about 15-20 minutes Can perform about 2-3 minutes at 50% Continue Doxycyline halfway. (5) Morbid obesity with BMI of 70 and over, adult Comment: - Weight down to 231 kg, BMI 90 - Very motivated to continue diet. On MVI, vit D3, FeSO4. Prealbumin up to 13 on 07/12/16, ferritin up to 34.9 (6) Anemia Comment: Appears to be anemia of chronic disease and acute blood loss anemia ( per ortho, she lost quite a lot of blood during initial surgery). Improving c/w iron supplimentation (7) DVT prophylaxis Comment: - SQ Heparin. Status and Disposition: Swing status.
[2016-07-17] MEDS: Senna TAB PO SCH (20:59)
[2016-07-17] MEDS: ALPRAZolam TAB* 0.5 MG PO PRN (21:56)
[2016-07-18] MEDS: Heparin VIAL(*) 5000 UNITS/ML VIAL (FIVE THOUSAND) SUBCUT SCH ×3 (05:25→22:00)
[2016-07-18] MEDS: Metoclopramide TAB* 10 MG PO SCH ×4 (07:29→20:42)
[2016-07-18] MEDS: Cholecalciferol TAB* 1000 UNITS PO SCH (08:52)
[2016-07-18] MEDS: Ferrous Sulfate TAB* 325 MG PO SCH (08:52)
[2016-07-18] MEDS: Multivitamins/Minerals TAB PO SCH (08:52)
[2016-07-18] MEDS: DOXYcycline CAP(*) 100 MG PO SCH ×3 (08:52→17:58)
[2016-07-18] MEDS: Sertraline* 100 MG TAB PO SCH (08:52)
[2016-07-18] MEDS: oxyCODONE/Acetamin 5/325 MG* TAB PO PRN ×2 (11:02→17:25)
[2016-07-18] MEDS: Oxybutynin TAB* 5 MG PO PRN (20:42)
[2016-07-18] MEDS: Senna TAB PO SCH (20:43)
[2016-07-18] MEDS: ALPRAZolam TAB* 0.5 MG PO PRN (22:00)
[2016-07-19] MEDS: Heparin VIAL(*) 5000 UNITS/ML VIAL (FIVE THOUSAND) SUBCUT SCH ×3 (05:44→21:13)
[2016-07-19] MEDS: oxyCODONE/Acetamin 5/325 MG* TAB PO PRN ×3 (08:13→21:12)
[2016-07-19] MEDS: Sertraline* 100 MG TAB PO SCH (08:14)
[2016-07-19] MEDS: Cholecalciferol TAB* 1000 UNITS PO SCH (08:14)
[2016-07-19] MEDS: Metoclopramide TAB* 10 MG PO SCH ×4 (08:14→21:11)
[2016-07-19] MEDS: Ferrous Sulfate TAB* 325 MG PO SCH (09:26)
[2016-07-19] MEDS: DOXYcycline CAP(*) 100 MG PO SCH ×3 (09:26→17:37)
[2016-07-19] MEDS: Multivitamins/Minerals TAB PO SCH (09:27)
[2016-07-19] MEDS: ALPRAZolam TAB* 0.5 MG PO PRN (21:11)
[2016-07-19] MEDS: Oxybutynin TAB* 5 MG PO PRN (21:12)
[2016-07-19] MEDS: Senna TAB PO SCH (21:17)
[2016-07-20] MEDS: Heparin VIAL(*) 5000 UNITS/ML VIAL (FIVE THOUSAND) SUBCUT SCH ×3 (05:50→22:01)
[2016-07-20] MEDS: Metoclopramide TAB* 10 MG PO SCH ×4 (08:55→21:59)
[2016-07-20] MEDS: Multivitamins/Minerals TAB PO SCH (08:55)
[2016-07-20] MEDS: Ferrous Sulfate TAB* 325 MG PO SCH (08:56)
[2016-07-20] MEDS: DOXYcycline CAP(*) 100 MG PO SCH ×3 (08:56→17:44)
[2016-07-20] MEDS: Cholecalciferol TAB* 1000 UNITS PO SCH (08:56)
[2016-07-20] MEDS: oxyCODONE/Acetamin 5/325 MG* TAB PO PRN ×4 (08:56→21:59)
[2016-07-20] MEDS: Sertraline* 100 MG TAB PO SCH (08:56)
[2016-07-20] MEDS: Senna TAB PO SCH (21:24)
[2016-07-20] MEDS: ALPRAZolam TAB* 0.5 MG PO PRN (22:00)
[2016-07-21] MEDS: Heparin VIAL(*) 5000 UNITS/ML VIAL (FIVE THOUSAND) SUBCUT SCH ×3 (05:48→21:19)
[2016-07-21] MEDS: Metoclopramide TAB* 10 MG PO SCH ×4 (07:50→21:20)
[2016-07-21] MEDS: Ferrous Sulfate TAB* 325 MG PO SCH (08:23)
[2016-07-21] MEDS: Multivitamins/Minerals TAB PO SCH (08:23)
[2016-07-21] MEDS: oxyCODONE/Acetamin 5/325 MG* TAB PO PRN ×3 (08:37→21:20)
[2016-07-21] MEDS: Cholecalciferol TAB* 1000 UNITS PO SCH (08:37)
[2016-07-21] MEDS: DOXYcycline CAP(*) 100 MG PO SCH ×3 (08:37→18:03)
[2016-07-21] MEDS: Sertraline* 100 MG TAB PO SCH (08:37)
[2016-07-21] MEDS: Oxybutynin TAB* 5 MG PO PRN (21:19)
[2016-07-21] MEDS: ALPRAZolam TAB* 0.5 MG PO PRN (21:20)
[2016-07-21] MEDS: Senna TAB PO SCH (21:26)
[2016-07-22] MEDS: Heparin VIAL(*) 5000 UNITS/ML VIAL (FIVE THOUSAND) SUBCUT SCH ×3 (06:01→22:20)
[2016-07-22] MEDS: Metoclopramide TAB* 10 MG PO SCH ×4 (07:23→22:22)
[2016-07-22] MEDS: Multivitamins/Minerals TAB PO SCH (08:14)
[2016-07-22] MEDS: Ferrous Sulfate TAB* 325 MG PO SCH (08:14)
[2016-07-22] MEDS: DOXYcycline CAP(*) 100 MG PO SCH ×3 (09:16→17:55)
[2016-07-22] MEDS: oxyCODONE/Acetamin 5/325 MG* TAB PO PRN ×3 (09:16→22:21)
[2016-07-22] MEDS: Cholecalciferol TAB* 1000 UNITS PO SCH (09:16)
[2016-07-22] MEDS: Sertraline* 100 MG TAB PO SCH (09:16)
[2016-07-22] MEDS: Ergocalciferol CAP* 50000 UNIT PO SCH (19:55)
[2016-07-22] MEDS: Senna TAB PO SCH (22:21)
[2016-07-22] MEDS: Oxybutynin TAB* 5 MG PO PRN (22:21)
[2016-07-22] MEDS: ALPRAZolam TAB* 0.5 MG PO PRN (22:22)
[2016-07-23] MEDS: Heparin VIAL(*) 5000 UNITS/ML VIAL (FIVE THOUSAND) SUBCUT SCH ×3 (05:20→21:44)
[2016-07-23] MEDS: Metoclopramide TAB* 10 MG PO SCH ×4 (08:47→21:43)
[2016-07-23] MEDS: Multivitamins/Minerals TAB PO SCH (09:32)
[2016-07-23] MEDS: oxyCODONE/Acetamin 5/325 MG* TAB PO PRN ×3 (09:32→21:43)
[2016-07-23] MEDS: DOXYcycline CAP(*) 100 MG PO SCH ×3 (09:32→18:13)
[2016-07-23] MEDS: Cholecalciferol TAB* 1000 UNITS PO SCH (09:33)
[2016-07-23] MEDS: Sertraline* 100 MG TAB PO SCH (09:33)
[2016-07-23] MEDS: Ferrous Sulfate TAB* 325 MG PO SCH (09:33)
[2016-07-23] MEDS: Senna TAB PO SCH (21:32)
[2016-07-23] MEDS: ALPRAZolam TAB* 0.5 MG PO PRN (21:43)
[2016-07-24] MEDS: Heparin VIAL(*) 5000 UNITS/ML VIAL (FIVE THOUSAND) SUBCUT SCH ×3 (06:06→21:22)
[2016-07-24] MEDS: Ferrous Sulfate TAB* 325 MG PO SCH (08:43)
[2016-07-24] MEDS: Metoclopramide TAB* 10 MG PO SCH ×4 (08:43→21:22)
[2016-07-24] MEDS: Sertraline* 100 MG TAB PO SCH (08:43)
[2016-07-24] MEDS: Multivitamins/Minerals TAB PO SCH (08:44)
[2016-07-24] MEDS: Cholecalciferol TAB* 1000 UNITS PO SCH (08:44)
[2016-07-24] MEDS: Trimethobenzamide CAP* 300 MG PO PRN (09:08)
[2016-07-24] MEDS: DOXYcycline CAP(*) 100 MG PO SCH ×3 (09:11→17:58)
[2016-07-24] MEDS: oxyCODONE/Acetamin 5/325 MG* TAB PO PRN ×2 (10:24→21:23)
--- NOTE | 2016-07-24 18:31 | PN ---
Subjective Date of Service: 07/24/16 Interval History: HOSPITALIST PROGRESS NOTE Patient seen and examined at bedside. She offers no new complaints today. Pain is controlled, making progress with PT. Family History: Unchanged from Admission Social History: Unchanged from Admission Past Medical History: Unchanged from Admission Objective Active Medications: Acetaminophen (Tylenol Tab*) 650 mg PO Q4H PRN PRN Reason: FEVER/PAIN Alprazolam (Xanax Tab*) 0.5 mg PO Q4H PRN PRN Reason: ANXIETY Last Admin: 07/23/16 21:43 Dose: 0.5 mg Cholecalciferol (Vitamin D Tab*) 2,000 units PO DAILY [facility] Last Admin: 07/24/16 08:44 Dose: 2,000 units Diphenhydramine HCl (Benadryl Po*) 25 mg PO Q6H PRN PRN Reason: ITCHY Docusate Sodium (Colace Cap*) 100 mg PO BID PRN PRN Reason: CONSTIPATION Last Admin: 06/13/16 09:05 Dose: 100 mg Doxycycline Hyclate (Vibramycin Cap(*)) 100 mg PO 0900,1300,1800 [facility] Last Admin: 07/24/16 17:58 Dose: 100 mg Ferrous Sulfate (Ferrous Sulfate Tab*) 325 mg PO DAILY [facility] Last Admin: 07/24/16 08:43 Dose: 325 mg Heparin Sodium (Porcine) (Heparin Vial(*)) 5,000 units SUBCUT Q8HR [facility] Last Admin: 07/24/16 14:36 Dose: 5,000 units Metoclopramide HCl (Reglan Tab*) 10 mg PO ACHS [facility] Last Admin: 07/24/16 16:22 Dose: 10 mg Multivitamins/Minerals (Theragran/Minerals Tab*) 1 tab PO DAILY [facility] Last Admin: 07/24/16 08:44 Dose: 1 tab Oxybutynin Chloride (Ditropan Tab*) 5 mg PO BID PRN PRN Reason: BLADDER SPASMS Last Admin: 07/22/16 22:21 Dose: 5 mg Oxycodone/Acetaminophen (Percocet 5/325 Tab*) 2 tab PO Q4H PRN PRN Reason: Pain 6-10 Last Admin: 07/24/16 10:24 Dose: 2 tab Oxycodone/Acetaminophen (Percocet 5/325 Tab*) 1 tab PO Q4H PRN PRN Reason: Pain 1-5 Last Admin: 07/23/16 21:43 Dose: 1 tab Polyethylene Glycol/Electrolytes (Miralax*) 17 gm PO DAILY PRN PRN Reason: CONSTIPATION Prochlorperazine (Compazine Tab*) 10 mg PO Q6H PRN PRN Reason: NAUSEA Last Admin: 05/30/16 18:46 Dose: 10 mg Senna (Senokot Tab*) 1 tab PO BEDTIME [facility] Last Admin: 07/23/16 21:32 Dose: Not Given Sertraline HCl (Zoloft*) 200 mg PO DAILY [facility] Last Admin: 07/24/16 08:43 Dose: 200 mg Trimethobenzamide HCl (Tigan Cap*) 300 mg PO Q8H PRN PRN Reason: NAUSEA Last Admin: 06/30/16 10:34 Dose: 300 mg Vital Signs 07/24/16 07/24/16 07/24/16 07:57 08:00 10:24 Temperature 98.1 F Pulse Rate 74 Respiratory 18 16 15 Rate Blood Pressure 128/55 (mmHg) O2 Sat by Pulse 97 Oximetry Oxygen Devices in Use Now: None Appearance: Pleasant lady sitting up in bed in NAD. Eyes: No Scleral Icterus Ears/Nose/Mouth/Throat: Mucous Membranes Moist Neck: Trachea Midline Extremities: No Edema, - - Well healed surgical scar Neurological: Alert and Oriented x 3, NL Muscle Strength and Tone Nutrition: Taking PO's Result Diagrams: 07/17/16 15:30 07/17/16 15:30 Assess/Plan/Problems-Billing Ms. Anthony is a 45 yo female with a PMHx of super morbid obesity with BMI 105 ( now improved to 90), anxiety/depression who originally presented with R lower leg fracture s/p ORIF 03/17 complicated by wound dehiscence and deep infection s /p multiple return trips to OR, wound vac (now removed) who is undergoing medically supervised weight loss and mobilization with success. - Patient Problems (1) Fracture of right tibia and fibula Comment: - S/P ORIF right tib-fib 03/17/16. S/P wound dehiscence and multiple trips to OR for debridement. - started Tilt table on 06/14/16 with 20% of weight, up to 50% this week. - Continue Doxycyline fci. (2) Morbid obesity with BMI of 70 and over, adult Comment: - Weight down to 507 lb, BMI 89. - Very motivated to continue diet. On MVI, vit D3, FeSO4. - Prealbumin up to 13 on 07/12/16, ferritin up to 34.9 (3) Depression Comment: - Continue Zoloft 200mg daily. (4) TSH elevation Comment: Free T4 and T3 WNL. Plan to recheck TSH in 4/6 weeks (~07/24) (5) DVT prophylaxis Comment: - SQ Heparin. (6) Full code status Status and Disposition: Swing status.
[2016-07-24] MEDS: ALPRAZolam TAB* 0.5 MG PO PRN (21:22)
[2016-07-24] MEDS: Senna TAB PO SCH (21:23)
[2016-07-25] MEDS: Heparin VIAL(*) 5000 UNITS/ML VIAL (FIVE THOUSAND) SUBCUT SCH ×3 (06:05→21:42)
[2016-07-25] MEDS: Metoclopramide TAB* 10 MG PO SCH ×4 (07:47→21:41)
[2016-07-25] MEDS: Ferrous Sulfate TAB* 325 MG PO SCH (09:04)
[2016-07-25] MEDS: DOXYcycline CAP(*) 100 MG PO SCH ×3 (09:04→18:04)
[2016-07-25] MEDS: Multivitamins/Minerals TAB PO SCH (09:05)
[2016-07-25] MEDS: Cholecalciferol TAB* 1000 UNITS PO SCH (09:05)
[2016-07-25] MEDS: Sertraline* 100 MG TAB PO SCH (09:05)
--- NOTE | 2016-07-25 10:11 | PN ---
Progress Note - Progress Note SOAP: Subjective: Pt is doing well with no complaints. Her pain is well controlled. Denies CP, SOB or calf pain. VSS overnight Objective: PE- 46 y/o F NAD lying in bed comfortably RLE- incision well healed with no sign of infection, full ROM of ankle, calf nontender, NVI Vital Signs Temp Pulse Resp BP Pulse Ox 98.1 F 74 18 128/55 98 07/24/16 07:57 07/24/16 07:57 07/25/16 07:45 07/24/16 07:57 07/24/16 23:32 Assessment: S/P ORIF Right tibia 03/2016 Plan: Cont PT- partial WB, tilt table 50 % cont doxycycline usp cont current management
[2016-07-25] MEDS: oxyCODONE/Acetamin 5/325 MG* TAB PO PRN ×2 (13:23→21:41)
[2016-07-25] MEDS: ALPRAZolam TAB* 0.5 MG PO PRN (21:41)
[2016-07-25] MEDS: Senna TAB PO SCH (21:45)
[2016-07-26] MEDS: Heparin VIAL(*) 5000 UNITS/ML VIAL (FIVE THOUSAND) SUBCUT SCH ×3 (05:48→21:13)
[2016-07-26] MEDS: Metoclopramide TAB* 10 MG PO SCH ×4 (07:55→21:14)
[2016-07-26] MEDS: Multivitamins/Minerals TAB PO SCH (09:02)
[2016-07-26] MEDS: DOXYcycline CAP(*) 100 MG PO SCH ×3 (09:02→17:59)
[2016-07-26] MEDS: Ferrous Sulfate TAB* 325 MG PO SCH (09:02)
[2016-07-26] MEDS: oxyCODONE/Acetamin 5/325 MG* TAB PO PRN ×3 (09:03→21:13)
[2016-07-26] MEDS: Cholecalciferol TAB* 1000 UNITS PO SCH (09:03)
[2016-07-26] MEDS: Sertraline* 100 MG TAB PO SCH (09:03)
[2016-07-26] MEDS: ALPRAZolam TAB* 0.5 MG PO PRN (21:13)
[2016-07-26] MEDS: Senna TAB PO SCH (21:14)
[2016-07-27] MEDS: Heparin VIAL(*) 5000 UNITS/ML VIAL (FIVE THOUSAND) SUBCUT SCH ×3 (06:05→21:08)
[2016-07-27] MEDS: Metoclopramide TAB* 10 MG PO SCH ×4 (08:08→21:08)
[2016-07-27] MEDS: DOXYcycline CAP(*) 100 MG PO SCH ×3 (09:28→18:14)
[2016-07-27] MEDS: Sertraline* 100 MG TAB PO SCH (09:28)
[2016-07-27] MEDS: Ferrous Sulfate TAB* 325 MG PO SCH (09:28)
[2016-07-27] MEDS: Cholecalciferol TAB* 1000 UNITS PO SCH (09:28)
[2016-07-27] MEDS: Multivitamins/Minerals TAB PO SCH (09:28)
[2016-07-27] MEDS: oxyCODONE/Acetamin 5/325 MG* TAB PO PRN ×3 (09:29→21:07)
[2016-07-27] MEDS: Oxybutynin TAB* 5 MG PO SCH ×2 (11:02→21:08)
[2016-07-27] MEDS: ALPRAZolam TAB* 0.5 MG PO PRN (21:07)
[2016-07-27] MEDS: Senna TAB PO SCH (21:08)
[2016-07-28] MEDS: Heparin VIAL(*) 5000 UNITS/ML VIAL (FIVE THOUSAND) SUBCUT SCH ×3 (05:29→21:05)
[2016-07-28] MEDS: Metoclopramide TAB* 10 MG PO SCH ×4 (08:22→21:05)
[2016-07-28 08:25] LABS: Hematocrit 31 % (35-47); Hemoglobin 9.8 g/dl (12.0-16.0); Mean Corpuscular HGB Conc 32 g/dl (31-36); Mean Corpuscular Hemoglobin 27 pg (27-31); Mean Corpuscular Volume 83 fL (80-97); Mean Platelet Volume 7 um3 (7.4-10.4); Red Blood Count 3.68 10^6/ul (4.0-5.4); Red Cell Distribution Width 17 % (10.5-15); White Blood Count 6.4 10^3/ul (3.5-10.8)
[2016-07-28 08:38] LABS: BUN/Creatinine Ratio 29.6 (8-20); Calcium 8.9 mg/dL (8.6-10.3); EGFR African American 97.9 (>60); EGFR Non-African American 76.1 (>60); Potassium 3.9 mmol/L (3.5-5.0)
[2016-07-28 08:58] LABS: TSH (Thyroid Stimulating Horm) 3.99 mcIU/mL (0.34-5.60)
[2016-07-28] MEDS: Multivitamins/Minerals TAB PO SCH (09:32)
[2016-07-28] MEDS: Ferrous Sulfate TAB* 325 MG PO SCH (09:32)
[2016-07-28] MEDS: DOXYcycline CAP(*) 100 MG PO SCH ×3 (09:33→18:22)
[2016-07-28] MEDS: Oxybutynin TAB* 5 MG PO SCH ×2 (09:33→21:05)
[2016-07-28] MEDS: oxyCODONE/Acetamin 5/325 MG* TAB PO PRN ×2 (09:33→21:04)
[2016-07-28] MEDS: Cholecalciferol TAB* 1000 UNITS PO SCH (09:33)
[2016-07-28] MEDS: Sertraline* 100 MG TAB PO SCH (09:34)
--- NOTE | 2016-07-28 20:10 | PN ---
Subjective Date of Service: 07/28/16 Interval History: . Interviewed and examined patient at bedside; Discussed case with Dr. Del Cid ; Reviewed previous notes and radiology results; I am following this case closely from a case management perspective as well -- the coordinating physician. Kim continues to do well. She is making strides with weight loss and mobility and conditioning. She has lost ~150 pounds and is expected to be independent within one month. Denies complaints I am reaching out to her and also coordinating a psychological evaluation to enable continued healthy lifestyle decisions. . Family History: Unchanged from Admission Social History: Unchanged from Admission Past Medical History: Unchanged from Admission Objective Active Medications: Acetaminophen (Tylenol Tab*) 650 mg PO Q4H PRN PRN Reason: FEVER/PAIN Alprazolam (Xanax Tab*) 0.5 mg PO Q4H PRN PRN Reason: ANXIETY Last Admin: 07/27/16 21:07 Dose: 0.5 mg Cholecalciferol (Vitamin D Tab*) 2,000 units PO DAILY [facility] Last Admin: 07/28/16 09:33 Dose: 2,000 units Diphenhydramine HCl (Benadryl Po*) 25 mg PO Q6H PRN PRN Reason: ITCHY Docusate Sodium (Colace Cap*) 100 mg PO BID PRN PRN Reason: CONSTIPATION Last Admin: 06/13/16 09:05 Dose: 100 mg Doxycycline Hyclate (Vibramycin Cap(*)) 100 mg PO 0900,1300,1800 [facility] Last Admin: 07/28/16 18:22 Dose: 100 mg Ferrous Sulfate (Ferrous Sulfate Tab*) 325 mg PO DAILY [facility] Last Admin: 07/28/16 09:32 Dose: Not Given Heparin Sodium (Porcine) (Heparin Vial(*)) 5,000 units SUBCUT Q8HR [facility] Last Admin: 07/28/16 13:35 Dose: 5,000 units Metoclopramide HCl (Reglan Tab*) 10 mg PO ACHS [facility] Last Admin: 07/28/16 17:04 Dose: 10 mg Multivitamins/Minerals (Theragran/Minerals Tab*) 1 tab PO DAILY [facility] Last Admin: 07/28/16 09:32 Dose: Not Given Oxybutynin Chloride (Ditropan Tab*) 5 mg PO BID [facility] Last Admin: 07/28/16 09:33 Dose: 5 mg Oxycodone/Acetaminophen (Percocet 5/325 Tab*) 1 tab PO Q4H PRN PRN Reason: PAIN Oxycodone/Acetaminophen (Percocet 5/325 Tab*) 2 tab PO Q4H PRN PRN Reason: PAIN Polyethylene Glycol/Electrolytes (Miralax*) 17 gm PO DAILY PRN PRN Reason: CONSTIPATION Prochlorperazine (Compazine Tab*) 10 mg PO Q6H PRN PRN Reason: NAUSEA Last Admin: 05/30/16 18:46 Dose: 10 mg Senna (Senokot Tab*) 1 tab PO BEDTIME [facility] Last Admin: 07/27/16 21:08 Dose: 1 tab Sertraline HCl (Zoloft*) 200 mg PO DAILY [facility] Last Admin: 07/28/16 09:34 Dose: 200 mg Trimethobenzamide HCl (Tigan Cap*) 300 mg PO Q8H PRN PRN Reason: NAUSEA Last Admin: 06/30/16 10:34 Dose: 300 mg Vital Signs 07/27/16 07/27/16 07/27/16 21:07 23:06 23:36 Temperature Pulse Rate Respiratory 16 16 Rate Blood Pressure (mmHg) O2 Sat by Pulse 98 Oximetry 07/28/16 07/28/16 07/28/16 08:00 08:35 09:33 Temperature 97.9 F Pulse Rate 71 Respiratory 18 16 18 Rate Blood Pressure 129/61 (mmHg) O2 Sat by Pulse 97 97 Oximetry 07/28/16 11:33 Temperature Pulse Rate Respiratory 18 Rate Blood Pressure (mmHg) O2 Sat by Pulse Oximetry Oxygen Devices in Use Now: None Result Diagrams: 07/28/16 07:58 07/28/16 07:58 Assess/Plan/Problems-Billing Assessment: Ms. Anthony is a 45 yo female with a PMHx of super morbid obesity with BMI 105 ( now improved to 90), anxiety/depression who originally presented with R lower leg fracture s/p ORIF 03/17 complicated by wound dehiscence and deep infection s /p multiple return trips to OR, wound vac (now removed) who is undergoing medically supervised weight loss and mobilization with success. - Patient Problems (1) Fracture of right tibia and fibula Current Visit: Yes Status: Acute Priority: High Code(s): S82.201A - UNSP FRACTURE OF SHAFT OF RIGHT TIBIA, INIT FOR CLOS FX; S82.401A - UNSP FRACTURE OF SHAFT OF RIGHT FIBULA, INIT FOR CLOS FX Comment: - S/P ORIF right tib-fib 03/17/16. S/P wound dehiscence and multiple trips to OR for debridement. - started Tilt table on 06/14/16 with 20% of weight, up to 50% this week. 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 (2) Anxiety Current Visit: Yes Status: Acute Priority: High Code(s): F41.9 - ANXIETY DISORDER, UNSPECIFIED SNOMED Code(s): 53499291 Comment: - Continue sertraline and alprazolam. Supportive care. (3) Morbid obesity with BMI of 70 and over, adult Current Visit: Yes Status: Chronic Priority: High Code(s): E66.9 - OBESITY , UNSPECIFIED; Z68.45 - BODY MASS INDEX (BMI) 70 OR GREATER, ADULT Comment: - Weight down to ~500 lbs, BMI ~89. - Very motivated to continue diet. - On MVI, vit D3, FeSO4. - Prealbumin 13 on 07/28/16 (4) TSH elevation Current Visit: Yes Status: Acute Priority: High Code(s): R94.6 - ABNORMAL RESULTS OF THYROID FUNCTION STUDIES Comment: - Free T4 and T3 WNL in June. - Recheck TSH 07/29/15 was again, normal. (5) Full code status Current Visit: Yes Status: Chronic Priority: High Code(s): Z78.9 - OTHER SPECIFIED HEALTH STATUS (6) DVT prophylaxis Current Visit: Yes Status: Acute Priority: High SNOMED Code(s): 302453907 Status and Disposition: Swing status.
[2016-07-28] MEDS: ALPRAZolam TAB* 0.5 MG PO PRN (21:04)
[2016-07-28] MEDS: Senna TAB PO SCH (21:05)
[2016-07-29] MEDS: Heparin VIAL(*) 5000 UNITS/ML VIAL (FIVE THOUSAND) SUBCUT SCH ×3 (05:52→21:07)
[2016-07-29] MEDS: Metoclopramide TAB* 10 MG PO SCH ×4 (07:59→21:05)
[2016-07-29] MEDS: Sertraline* 100 MG TAB PO SCH (09:32)
[2016-07-29] MEDS: Oxybutynin TAB* 5 MG PO SCH ×2 (09:33→21:04)
[2016-07-29] MEDS: Ferrous Sulfate TAB* 325 MG PO SCH (09:33)
[2016-07-29] MEDS: oxyCODONE/Acetamin 5/325 MG* TAB PO PRN ×2 (09:33→21:05)
[2016-07-29] MEDS: DOXYcycline CAP(*) 100 MG PO SCH ×3 (09:33→19:20)
[2016-07-29] MEDS: Cholecalciferol TAB* 1000 UNITS PO SCH (09:33)
[2016-07-29] MEDS: Multivitamins/Minerals TAB PO SCH (09:33)
[2016-07-29] MEDS: ALPRAZolam TAB* 0.5 MG PO PRN (21:04)
[2016-07-29] MEDS: Senna TAB PO SCH (21:05)
[2016-07-30] MEDS: Heparin VIAL(*) 5000 UNITS/ML VIAL (FIVE THOUSAND) SUBCUT SCH ×3 (05:23→21:50)
[2016-07-30] MEDS: Metoclopramide TAB* 10 MG PO SCH ×4 (08:31→21:47)
[2016-07-30] MEDS: Oxybutynin TAB* 5 MG PO SCH ×2 (09:18→21:48)
[2016-07-30] MEDS: Multivitamins/Minerals TAB PO SCH (09:18)
[2016-07-30] MEDS: Sertraline* 100 MG TAB PO SCH (09:18)
[2016-07-30] MEDS: Ferrous Sulfate TAB* 325 MG PO SCH (09:18)
[2016-07-30] MEDS: Cholecalciferol TAB* 1000 UNITS PO SCH (09:18)
[2016-07-30] MEDS: oxyCODONE/Acetamin 5/325 MG* TAB PO PRN ×2 (09:23→21:48)
[2016-07-30] MEDS: DOXYcycline CAP(*) 100 MG PO SCH ×3 (09:23→18:38)
[2016-07-30] MEDS: Senna TAB PO SCH (21:33)
[2016-07-30] MEDS: ALPRAZolam TAB* 0.5 MG PO PRN (21:47)
[2016-07-31] MEDS: Heparin VIAL(*) 5000 UNITS/ML VIAL (FIVE THOUSAND) SUBCUT SCH ×3 (06:09→21:37)
[2016-07-31] MEDS: Metoclopramide TAB* 10 MG PO SCH ×4 (08:29→21:38)
[2016-07-31] MEDS: Ferrous Sulfate TAB* 325 MG PO SCH (09:29)
[2016-07-31] MEDS: Sertraline* 100 MG TAB PO SCH (09:29)
[2016-07-31] MEDS: Multivitamins/Minerals TAB PO SCH (09:29)
[2016-07-31] MEDS: Cholecalciferol TAB* 1000 UNITS PO SCH (09:29)
[2016-07-31] MEDS: DOXYcycline CAP(*) 100 MG PO SCH ×3 (09:29→17:44)
[2016-07-31] MEDS: oxyCODONE/Acetamin 5/325 MG* TAB PO PRN ×2 (09:29→21:38)
[2016-07-31] MEDS: Oxybutynin TAB* 5 MG PO SCH ×2 (09:29→21:38)
--- NOTE | 2016-07-31 17:37 | PN ---
Hospitalist Progress Note . HOSPITALIST NOTE: asked to see patient today for concern for possible LE cellulitis. + bilteral erythema just above ankle b/l. patient denies pain no new trauma no fevers PE: VSS Lower ankles: edematous, and mild erythema but not aprpeciably warm and no streaking CV: no MRG Pulm: no R/R/W Abd: obese, NT Skin: otherwise nl Labs from 07/28 reviewed. Plan: no antibiotics for now check CRP/ CBC/BMP in AM Already on doxycycline 100 mg PO TID
[2016-07-31] MEDS: Senna TAB PO SCH (21:37)
[2016-07-31] MEDS: ALPRAZolam TAB* 0.5 MG PO PRN (21:38)
[2016-08-01] MEDS: Heparin VIAL(*) 5000 UNITS/ML VIAL (FIVE THOUSAND) SUBCUT SCH ×3 (05:26→21:34)
[2016-08-01 08:21] LABS: Hematocrit 30 % (35-47); Hemoglobin 9.6 g/dl (12.0-16.0); Mean Corpuscular HGB Conc 32 g/dl (31-36); Mean Corpuscular Hemoglobin 27 pg (27-31); Mean Corpuscular Volume 83 fL (80-97); Mean Platelet Volume 6 um3 (7.4-10.4); Red Blood Count 3.58 10^6/ul (4.0-5.4); Red Cell Distribution Width 17 % (10.5-15); White Blood Count 6.1 10^3/ul (3.5-10.8)
[2016-08-01 08:38] LABS: BUN/Creatinine Ratio 24.7 (8-20); EGFR African American 97.9 (>60); EGFR Non-African American 76.1 (>60); Potassium 3.9 mmol/L (3.5-5.0)
[2016-08-01] MEDS: Metoclopramide TAB* 10 MG PO SCH ×4 (08:42→21:35)
[2016-08-01] MEDS: Oxybutynin TAB* 5 MG PO SCH ×2 (09:15→21:35)
[2016-08-01] MEDS: Sertraline* 100 MG TAB PO SCH (09:15)
[2016-08-01] MEDS: Ferrous Sulfate TAB* 325 MG PO SCH (09:15)
[2016-08-01] MEDS: DOXYcycline CAP(*) 100 MG PO SCH ×3 (09:15→18:26)
[2016-08-01] MEDS: oxyCODONE/Acetamin 5/325 MG* TAB PO PRN ×2 (09:15→21:34)
[2016-08-01] MEDS: Cholecalciferol TAB* 1000 UNITS PO SCH (09:16)
[2016-08-01] MEDS: Multivitamins/Minerals TAB PO SCH (09:16)
[2016-08-01 09:23] LABS: Ferritin 29.3 ng/mL (11-307)
[2016-08-01] MEDS: Senna TAB PO SCH (21:34)
[2016-08-01] MEDS: ALPRAZolam TAB* 0.5 MG PO PRN (21:35)
[2016-08-02] MEDS: Heparin VIAL(*) 5000 UNITS/ML VIAL (FIVE THOUSAND) SUBCUT SCH ×3 (05:37→21:50)
[2016-08-02] MEDS: Metoclopramide TAB* 10 MG PO SCH ×4 (08:39→21:47)
[2016-08-02] MEDS: Multivitamins/Minerals TAB PO SCH (09:41)
[2016-08-02] MEDS: DOXYcycline CAP(*) 100 MG PO SCH ×3 (09:41→18:19)
[2016-08-02] MEDS: Cholecalciferol TAB* 1000 UNITS PO SCH (09:41)
[2016-08-02] MEDS: Sertraline* 100 MG TAB PO SCH (09:41)
[2016-08-02] MEDS: Oxybutynin TAB* 5 MG PO SCH ×2 (09:42→21:48)
[2016-08-02] MEDS: Ferrous Sulfate TAB* 325 MG PO SCH (09:42)
[2016-08-02] MEDS: oxyCODONE/Acetamin 5/325 MG* TAB PO PRN ×3 (09:49→21:48)
[2016-08-02] MEDS: ALPRAZolam TAB* 0.5 MG PO PRN (21:48)
[2016-08-02] MEDS: Senna TAB PO SCH (21:48)
[2016-08-03] MEDS: Heparin VIAL(*) 5000 UNITS/ML VIAL (FIVE THOUSAND) SUBCUT SCH ×3 (06:38→21:52)
[2016-08-03] MEDS: Metoclopramide TAB* 10 MG PO SCH ×4 (08:23→21:52)
[2016-08-03] MEDS: Multivitamins/Minerals TAB PO SCH (09:46)
[2016-08-03] MEDS: DOXYcycline CAP(*) 100 MG PO SCH ×3 (09:46→18:12)
[2016-08-03] MEDS: Cholecalciferol TAB* 1000 UNITS PO SCH (09:46)
[2016-08-03] MEDS: Oxybutynin TAB* 5 MG PO SCH ×2 (09:47→21:51)
[2016-08-03] MEDS: Ferrous Sulfate TAB* 325 MG PO SCH (09:47)
[2016-08-03] MEDS: Sertraline* 100 MG TAB PO SCH (09:47)
[2016-08-03] MEDS: oxyCODONE/Acetamin 5/325 MG* TAB PO PRN ×3 (09:47→21:52)
[2016-08-03] MEDS: ALPRAZolam TAB* 0.5 MG PO PRN (21:51)
[2016-08-03] MEDS: Senna TAB PO SCH (21:55)
[2016-08-04] MEDS: Heparin VIAL(*) 5000 UNITS/ML VIAL (FIVE THOUSAND) SUBCUT SCH ×3 (06:05→21:21)
[2016-08-04] MEDS: Metoclopramide TAB* 10 MG PO SCH ×4 (08:01→21:14)
[2016-08-04] MEDS: Multivitamins/Minerals TAB PO SCH (09:21)
[2016-08-04] MEDS: DOXYcycline CAP(*) 100 MG PO SCH ×3 (09:21→18:53)
[2016-08-04] MEDS: oxyCODONE/Acetamin 5/325 MG* TAB PO PRN ×3 (09:21→21:11)
[2016-08-04] MEDS: Cholecalciferol TAB* 1000 UNITS PO SCH (09:21)
[2016-08-04] MEDS: Ferrous Sulfate TAB* 325 MG PO SCH (09:22)
[2016-08-04] MEDS: Oxybutynin TAB* 5 MG PO SCH ×2 (09:22→21:11)
[2016-08-04] MEDS: Sertraline* 100 MG TAB PO SCH (09:22)
[2016-08-04] MEDS ORDERED: Phenazopyridine TAB* 100 MG PO ONE (17:00)
[2016-08-04] MEDS: ALPRAZolam TAB* 0.5 MG PO PRN (21:11)
[2016-08-04] MEDS: Senna TAB PO SCH (21:12)
[2016-08-05] MEDS: Heparin VIAL(*) 5000 UNITS/ML VIAL (FIVE THOUSAND) SUBCUT SCH ×3 (06:13→21:55)
[2016-08-05] MEDS: Metoclopramide TAB* 10 MG PO SCH ×4 (08:13→20:59)
[2016-08-05] MEDS: Oxybutynin TAB* 5 MG PO SCH ×2 (09:35→20:58)
[2016-08-05] MEDS: Cholecalciferol TAB* 1000 UNITS PO SCH (09:35)
[2016-08-05] MEDS: Ferrous Sulfate TAB* 325 MG PO SCH (09:36)
[2016-08-05] MEDS: DOXYcycline CAP(*) 100 MG PO SCH ×3 (09:36→18:47)
[2016-08-05] MEDS: Multivitamins/Minerals TAB PO SCH (09:36)
[2016-08-05] MEDS: Sertraline* 100 MG TAB PO SCH (09:37)
[2016-08-05] MEDS: Phenazopyridine TAB* 100 MG PO SCH ×2 (13:47→20:57)
[2016-08-05] MEDS: ALPRAZolam TAB* 0.5 MG PO PRN (20:58)
[2016-08-05] MEDS: oxyCODONE/Acetamin 5/325 MG* TAB PO PRN (20:58)
[2016-08-05] MEDS: Senna TAB PO SCH (20:59)
--- NOTE | 2016-08-05 23:00 | PRO ---
PULMONARY FUNCTION TEST REPORT: DATE OF PROCEDURE: 05/13/16 CLINICAL INFORMATION: 46-year-old female with morbid obesity. REFERRING MD: Ruben Dillon MD COMMENTS: Pulmonary function testing equipment was quality controlled. The patient was able to follow instructions well. Test fulfils criteria for acceptability and reproducibility. INTERPRETATION: Forced vital capacity is 2.34 L or 67% predicted. FEV1 is 1.82 L or 65% predicted. FEV1/FVC is 96% predicted. Flow volume loop is of good technical quality and is not suggestive of obstructive ventilatory defect. IMPRESSION: Spirometry not suggestive of obstructive ventilatory defect. [id number]/[facility] #: [id number] MTDD
[2016-08-06] MEDS: Heparin VIAL(*) 5000 UNITS/ML VIAL (FIVE THOUSAND) SUBCUT SCH ×3 (05:30→21:49)
[2016-08-06] MEDS: Metoclopramide TAB* 10 MG PO SCH ×4 (08:01→21:48)
[2016-08-06] MEDS: Ferrous Sulfate TAB* 325 MG PO SCH (08:01)
[2016-08-06] MEDS: Multivitamins/Minerals TAB PO SCH (08:01)
[2016-08-06] MEDS: Cholecalciferol TAB* 1000 UNITS PO SCH (09:20)
[2016-08-06] MEDS: Sertraline* 100 MG TAB PO SCH (09:20)
[2016-08-06] MEDS: oxyCODONE/Acetamin 5/325 MG* TAB PO PRN ×2 (09:20→21:48)
[2016-08-06] MEDS: Oxybutynin TAB* 5 MG PO SCH ×2 (09:20→21:48)
[2016-08-06] MEDS: DOXYcycline CAP(*) 100 MG PO SCH ×3 (09:20→17:23)
[2016-08-06] MEDS: Phenazopyridine TAB* 100 MG PO SCH ×3 (09:20→21:48)
[2016-08-06] MEDS: Senna TAB PO SCH (21:49)
[2016-08-06] MEDS: ALPRAZolam TAB* 0.5 MG PO PRN (21:50)
[2016-08-07] MEDS: Heparin VIAL(*) 5000 UNITS/ML VIAL (FIVE THOUSAND) SUBCUT SCH ×3 (05:50→21:20)
[2016-08-07] MEDS: Metoclopramide TAB* 10 MG PO SCH ×4 (07:50→21:19)
[2016-08-07] MEDS: oxyCODONE/Acetamin 5/325 MG* TAB PO PRN ×2 (09:46→21:19)
[2016-08-07] MEDS: DOXYcycline CAP(*) 100 MG PO SCH ×3 (09:47→18:32)
[2016-08-07] MEDS: Cholecalciferol TAB* 1000 UNITS PO SCH (09:47)
[2016-08-07] MEDS: Oxybutynin TAB* 5 MG PO SCH ×2 (09:47→21:18)
[2016-08-07] MEDS: Phenazopyridine TAB* 100 MG PO SCH ×3 (09:47→21:18)
[2016-08-07] MEDS: Sertraline* 100 MG TAB PO SCH (09:48)
[2016-08-07] MEDS: Multivitamins/Minerals TAB PO SCH (09:55)
[2016-08-07] MEDS: Ferrous Sulfate TAB* 325 MG PO SCH (09:55)
--- NOTE | 2016-08-07 15:06 | PN ---
Subjective Date of Service: 08/07/16 Interval History: Chart reviewed. Patient seen this afternoon. She has no complaints currently. Feels she is making significant progress. Areas of erythema in the LEs are not bothering her and she states they are about the same as when evaluated by Dr. Lanza. Has had some bladder spasms that have responded to pyridium. Family History: Unchanged from Admission Social History: Unchanged from Admission Past Medical History: Unchanged from Admission Objective Active Medications: Acetaminophen (Tylenol Tab*) 650 mg PO Q4H PRN PRN Reason: FEVER/PAIN Alprazolam (Xanax Tab*) 0.5 mg PO Q4H PRN PRN Reason: ANXIETY Last Admin: 08/06/16 21:50 Dose: 0.5 mg Cholecalciferol (Vitamin D Tab*) 2,000 units PO DAILY [facility] Last Admin: 08/07/16 09:47 Dose: 2,000 units Diphenhydramine HCl (Benadryl Po*) 25 mg PO Q6H PRN PRN Reason: ITCHY Docusate Sodium (Colace Cap*) 100 mg PO BID PRN PRN Reason: CONSTIPATION Last Admin: 06/13/16 09:05 Dose: 100 mg Doxycycline Hyclate (Vibramycin Cap(*)) 100 mg PO 0900,1300,1800 [facility] Last Admin: 08/07/16 13:43 Dose: 100 mg Ferrous Sulfate (Ferrous Sulfate Tab*) 325 mg PO DAILY [facility] Last Admin: 08/07/16 09:55 Dose: Not Given Heparin Sodium (Porcine) (Heparin Vial(*)) 5,000 units SUBCUT Q8HR [facility] Last Admin: 08/07/16 13:43 Dose: 5,000 units Metoclopramide HCl (Reglan Tab*) 10 mg PO ACHS [facility] Last Admin: 08/07/16 12:05 Dose: 10 mg Multivitamins/Minerals (Theragran/Minerals Tab*) 1 tab PO DAILY [facility] Last Admin: 08/07/16 09:55 Dose: Not Given Oxybutynin Chloride (Ditropan Tab*) 5 mg PO BID [facility] Last Admin: 08/07/16 09:47 Dose: 5 mg Oxycodone/Acetaminophen (Percocet 5/325 Tab*) 1 tab PO Q4H PRN PRN Reason: PAIN Last Admin: 08/06/16 21:48 Dose: 1 tab Oxycodone/Acetaminophen (Percocet 5/325 Tab*) 2 tab PO Q4H PRN PRN Reason: PAIN Last Admin: 08/07/16 09:46 Dose: 2 tab Phenazopyridine HCl (Pyridium Tab*) 100 mg PO TID [facility] Last Admin: 08/07/16 13:43 Dose: 100 mg Polyethylene Glycol/Electrolytes (Miralax*) 17 gm PO DAILY PRN PRN Reason: CONSTIPATION Prochlorperazine (Compazine Tab*) 10 mg PO Q6H PRN PRN Reason: NAUSEA Last Admin: 05/30/16 18:46 Dose: 10 mg Senna (Senokot Tab*) 1 tab PO BEDTIME [facility] Last Admin: 08/06/16 21:49 Dose: Not Given Sertraline HCl (Zoloft*) 200 mg PO DAILY [facility] Last Admin: 08/07/16 09:48 Dose: 200 mg Trimethobenzamide HCl (Tigan Cap*) 300 mg PO Q8H PRN PRN Reason: NAUSEA Last Admin: 06/30/16 10:34 Dose: 300 mg Vital Signs 08/06/16 08/06/16 08/06/16 16:20 21:48 21:50 Temperature Pulse Rate Respiratory 16 16 Rate Blood Pressure (mmHg) O2 Sat by Pulse 96 Oximetry 08/06/16 08/07/16 08/07/16 23:48 09:46 10:19 Temperature 97.7 F Pulse Rate 74 Respiratory 16 18 18 Rate Blood Pressure 122/54 (mmHg) O2 Sat by Pulse 98 Oximetry 08/07/16 11:46 Temperature Pulse Rate Respiratory 18 Rate Blood Pressure (mmHg) O2 Sat by Pulse Oximetry Oxygen Devices in Use Now: Nasal Cannula Appearance: Morbidly obese F, laying in chair in NAD Ears/Nose/Mouth/Throat: Mucous Membranes Moist Respiratory: Symmetrical Chest Expansion and Respiratory Effort, Clear to Auscultation Cardiovascular: NL Sounds; No Murmurs; No JVD, RRR Abdominal: - - Obese, soft, NTND, BS+ Extremities: - - Some slight erythema on lateral legs, likely from contact with chair, no warmth or tenderness Neurological: Alert and Oriented x 3 Result Diagrams: 08/01/16 08:12 08/01/16 08:12 Assess/Plan/Problems-Billing Assessment: Ms. Anthony is a 45 yo female with a PMHx of super morbid obesity with BMI 105 ( now improved to 90), anxiety/depression who originally presented with R lower leg fracture s/p ORIF 03/17 complicated by wound dehiscence and deep infection s /p multiple return trips to OR, wound vac (now removed) who is undergoing medically supervised weight loss and mobilization with success. - Patient Problems (1) Fracture of right tibia and fibula Current Visit: Yes Comment: - S/P ORIF right tib-fib 03/17/16. S/P wound dehiscence and multiple trips to OR for debridement. - started Tilt table on 06/14/16 with 20% of weight, up to 50% this week. - Continue Doxycyline skilled nursing. (2) Morbid obesity with BMI of 70 and over, adult Current Visit: Yes Comment: - Weight down to ~500 lbs, BMI ~90, has pleateaued as of late. - Very motivated to continue diet. - On MVI, vit D3, FeSO4. - Prealbumin 13 on 07/28/16 (3) TSH elevation Current Visit: Yes Comment: - Free T4 and T3 WNL in June. - Recheck TSH 07/29/15 was again, normal. (4) Depression Current Visit: Yes Comment: - Continue Zoloft 200mg daily - Continue alprazolam for anxiety (5) DVT prophylaxis Current Visit: Yes Comment: - SQ Heparin. Status and Disposition: Swing status.
[2016-08-07] MEDS: ALPRAZolam TAB* 0.5 MG PO PRN (21:18)
[2016-08-07] MEDS: Senna TAB PO SCH (21:20)
[2016-08-08] MEDS: Heparin VIAL(*) 5000 UNITS/ML VIAL (FIVE THOUSAND) SUBCUT SCH ×3 (05:27→22:11)
[2016-08-08] MEDS: Metoclopramide TAB* 10 MG PO SCH ×4 (08:13→20:20)
[2016-08-08] MEDS: Cholecalciferol TAB* 1000 UNITS PO SCH (09:29)
[2016-08-08] MEDS: DOXYcycline CAP(*) 100 MG PO SCH ×3 (09:30→17:49)
[2016-08-08] MEDS: Ferrous Sulfate TAB* 325 MG PO SCH (09:30)
[2016-08-08] MEDS: Phenazopyridine TAB* 100 MG PO SCH ×3 (09:31→20:20)
[2016-08-08] MEDS: Multivitamins/Minerals TAB PO SCH (09:31)
[2016-08-08] MEDS: Oxybutynin TAB* 5 MG PO SCH ×2 (09:31→20:20)
[2016-08-08] MEDS: Sertraline* 100 MG TAB PO SCH (09:32)
[2016-08-08] MEDS: oxyCODONE/Acetamin 5/325 MG* TAB PO PRN ×3 (09:33→20:22)
[2016-08-08] MEDS: ALPRAZolam TAB* 0.5 MG PO PRN (20:20)
[2016-08-08] MEDS: Senna TAB PO SCH (20:22)
[2016-08-09] MEDS: Heparin VIAL(*) 5000 UNITS/ML VIAL (FIVE THOUSAND) SUBCUT SCH ×3 (05:50→21:58)
[2016-08-09] MEDS: Metoclopramide TAB* 10 MG PO SCH ×4 (07:39→21:55)
[2016-08-09] MEDS: Ferrous Sulfate TAB* 325 MG PO SCH (09:20)
[2016-08-09] MEDS: Sertraline* 100 MG TAB PO SCH (09:20)
[2016-08-09] MEDS: Cholecalciferol TAB* 1000 UNITS PO SCH (09:20)
[2016-08-09] MEDS: DOXYcycline CAP(*) 100 MG PO SCH ×3 (09:20→17:51)
[2016-08-09] MEDS: Multivitamins/Minerals TAB PO SCH (09:20)
[2016-08-09] MEDS: Oxybutynin TAB* 5 MG PO SCH ×2 (09:20→21:55)
[2016-08-09] MEDS: oxyCODONE/Acetamin 5/325 MG* TAB PO PRN ×3 (09:24→21:56)
[2016-08-09] MEDS: Phenazopyridine TAB* 100 MG PO PRN (21:56)
[2016-08-09] MEDS: Senna TAB PO SCH (21:58)
[2016-08-10] MEDS: Heparin VIAL(*) 5000 UNITS/ML VIAL (FIVE THOUSAND) SUBCUT SCH ×3 (05:25→21:21)
[2016-08-10] MEDS: Metoclopramide TAB* 10 MG PO SCH ×4 (08:22→21:19)
[2016-08-10] MEDS: Sertraline* 100 MG TAB PO SCH (09:31)
[2016-08-10] MEDS: DOXYcycline CAP(*) 100 MG PO SCH ×3 (09:31→18:03)
[2016-08-10] MEDS: Phenazopyridine TAB* 100 MG PO PRN ×2 (09:31→21:19)
[2016-08-10] MEDS: Cholecalciferol TAB* 1000 UNITS PO SCH (09:31)
[2016-08-10] MEDS: Multivitamins/Minerals TAB PO SCH (09:32)
[2016-08-10] MEDS: Oxybutynin TAB* 5 MG PO SCH ×2 (09:32→21:19)
[2016-08-10] MEDS: oxyCODONE/Acetamin 5/325 MG* TAB PO PRN ×3 (09:32→21:19)
[2016-08-10] MEDS: Ferrous Sulfate TAB* 325 MG PO SCH (09:32)
[2016-08-10] MEDS: Senna TAB PO SCH (21:14)
[2016-08-11] MEDS: Heparin VIAL(*) 5000 UNITS/ML VIAL (FIVE THOUSAND) SUBCUT SCH ×3 (06:13→22:01)
[2016-08-11] MEDS: Metoclopramide TAB* 10 MG PO SCH ×4 (08:01→22:01)
[2016-08-11] MEDS: Multivitamins/Minerals TAB PO SCH (09:17)
[2016-08-11] MEDS: DOXYcycline CAP(*) 100 MG PO SCH ×3 (09:17→18:16)
[2016-08-11] MEDS: Ferrous Sulfate TAB* 325 MG PO SCH (09:17)
[2016-08-11] MEDS: Cholecalciferol TAB* 1000 UNITS PO SCH (09:17)
[2016-08-11] MEDS: Sertraline* 100 MG TAB PO SCH (09:17)
[2016-08-11] MEDS: Oxybutynin TAB* 5 MG PO SCH ×3 (09:18→22:00)
[2016-08-11] MEDS: oxyCODONE/Acetamin 5/325 MG* TAB PO PRN ×3 (09:18→21:58)
[2016-08-11] MEDS: Phenazopyridine TAB* 100 MG PO PRN (21:58)
[2016-08-11] MEDS: ALPRAZolam TAB* 0.5 MG PO PRN (22:00)
[2016-08-11] MEDS: Senna TAB PO SCH (22:06)
[2016-08-12] MEDS: Heparin VIAL(*) 5000 UNITS/ML VIAL (FIVE THOUSAND) SUBCUT SCH ×3 (05:54→22:02)
[2016-08-12] MEDS: Metoclopramide TAB* 10 MG PO SCH ×4 (08:33→21:07)
[2016-08-12] MEDS: Multivitamins/Minerals TAB PO SCH (09:21)
[2016-08-12] MEDS: Cholecalciferol TAB* 1000 UNITS PO SCH (09:21)
[2016-08-12] MEDS: DOXYcycline CAP(*) 100 MG PO SCH ×3 (09:21→17:30)
[2016-08-12] MEDS: Ferrous Sulfate TAB* 325 MG PO SCH (09:21)
[2016-08-12] MEDS: Oxybutynin TAB* 5 MG PO SCH ×3 (09:21→21:04)
[2016-08-12] MEDS: Sertraline* 100 MG TAB PO SCH (09:22)
[2016-08-12] MEDS: oxyCODONE/Acetamin 5/325 MG* TAB PO PRN ×2 (09:27→21:04)
--- NOTE | 2016-08-12 14:40 | RAD ---
INDICATION: Traumatic fracture right [id number] COMPARISON: May 24, 2016 TECHNIQUE: AP and lateral views were obtained. FINDINGS: There is ORIF of a distal tibial fracture. There is no evidence of hardware failure. There is mild narrowing about the ankle mortise. There are heel spurs. IMPRESSION: ORIF TIBIAL FRACTURE. NO EVIDENCE OF HARDWARE FAILURE.
[2016-08-12] MEDS: ALPRAZolam TAB* 0.5 MG PO PRN (21:04)
[2016-08-12] MEDS: Senna TAB PO SCH (21:05)
[2016-08-13] MEDS: Heparin VIAL(*) 5000 UNITS/ML VIAL (FIVE THOUSAND) SUBCUT SCH ×3 (06:07→21:27)
[2016-08-13] MEDS: Metoclopramide TAB* 10 MG PO SCH ×4 (08:13→21:29)
[2016-08-13] MEDS: Cholecalciferol TAB* 1000 UNITS PO SCH (09:22)
[2016-08-13] MEDS: Oxybutynin TAB* 5 MG PO SCH ×3 (09:22→21:27)
[2016-08-13] MEDS: Multivitamins/Minerals TAB PO SCH (09:22)
[2016-08-13] MEDS: Ferrous Sulfate TAB* 325 MG PO SCH (09:22)
[2016-08-13] MEDS: DOXYcycline CAP(*) 100 MG PO SCH ×3 (09:23→17:19)
[2016-08-13] MEDS: Sertraline* 100 MG TAB PO SCH (09:23)
[2016-08-13] MEDS: oxyCODONE/Acetamin 5/325 MG* TAB PO PRN ×2 (09:45→21:28)
[2016-08-13] MEDS: ALPRAZolam TAB* 0.5 MG PO PRN (21:27)
[2016-08-13] MEDS: Senna TAB PO SCH (21:27)
[2016-08-14] MEDS: Heparin VIAL(*) 5000 UNITS/ML VIAL (FIVE THOUSAND) SUBCUT SCH ×3 (05:53→22:45)
[2016-08-14] MEDS: Metoclopramide TAB* 10 MG PO SCH ×4 (08:32→20:02)
[2016-08-14] MEDS: Ferrous Sulfate TAB* 325 MG PO SCH (09:31)
[2016-08-14] MEDS: DOXYcycline CAP(*) 100 MG PO SCH ×3 (09:31→17:32)
[2016-08-14] MEDS: Oxybutynin TAB* 5 MG PO SCH ×3 (09:31→20:02)
[2016-08-14] MEDS: oxyCODONE/Acetamin 5/325 MG* TAB PO PRN ×3 (09:31→20:01)
[2016-08-14] MEDS: Cholecalciferol TAB* 1000 UNITS PO SCH (09:31)
[2016-08-14] MEDS: Sertraline* 100 MG TAB PO SCH (09:32)
[2016-08-14] MEDS: Multivitamins/Minerals TAB PO SCH (09:32)
--- NOTE | 2016-08-14 16:13 | PN ---
Subjective Date of Service: 08/14/16 Interval History: Pt is feeling well. She is nervous about her move to [facility] but accepting of the change. Objective Active Medications: Acetaminophen (Tylenol Tab*) 650 mg PO Q4H PRN PRN Reason: FEVER/PAIN Alprazolam (Xanax Tab*) 0.5 mg PO Q6H PRN PRN Reason: ANXIETY Last Admin: 08/13/16 21:27 Dose: 0.5 mg Cholecalciferol (Vitamin D Tab*) 2,000 units PO DAILY [facility] Last Admin: 08/14/16 09:31 Dose: 2,000 units Diphenhydramine HCl (Benadryl Po*) 25 mg PO Q6H PRN PRN Reason: ITCHY Docusate Sodium (Colace Cap*) 100 mg PO BID PRN PRN Reason: CONSTIPATION Last Admin: 06/13/16 09:05 Dose: 100 mg Doxycycline Hyclate (Vibramycin Cap(*)) 100 mg PO 0900,1300,1800 [facility] Last Admin: 08/14/16 12:58 Dose: 100 mg Ferrous Sulfate (Ferrous Sulfate Tab*) 325 mg PO DAILY [facility] Last Admin: 08/14/16 09:31 Dose: Not Given Heparin Sodium (Porcine) (Heparin Vial(*)) 5,000 units SUBCUT Q8HR [facility] Last Admin: 08/14/16 13:32 Dose: 5,000 units Metoclopramide HCl (Reglan Tab*) 10 mg PO ACHS [facility] Last Admin: 08/14/16 11:54 Dose: 10 mg Multivitamins/Minerals (Theragran/Minerals Tab*) 1 tab PO DAILY [facility] Last Admin: 08/14/16 09:32 Dose: Not Given Oxybutynin Chloride (Ditropan Tab*) 5 mg PO TID [facility] Last Admin: 08/14/16 13:31 Dose: 5 mg Oxycodone/Acetaminophen (Percocet 5/325 Tab*) 1 tab PO Q4H PRN PRN Reason: PAIN Last Admin: 08/13/16 21:28 Dose: 1 tab Oxycodone/Acetaminophen (Percocet 5/325 Tab*) 2 tab PO Q4H PRN PRN Reason: PAIN Last Admin: 08/14/16 13:31 Dose: 2 tab Phenazopyridine HCl (Pyridium Tab*) 100 mg PO TID PRN PRN Reason: dysuria Last Admin: 08/11/16 21:58 Dose: 100 mg Polyethylene Glycol/Electrolytes (Miralax*) 17 gm PO DAILY PRN PRN Reason: CONSTIPATION Prochlorperazine (Compazine Tab*) 10 mg PO Q6H PRN PRN Reason: NAUSEA Last Admin: 05/30/16 18:46 Dose: 10 mg Senna (Senokot Tab*) 1 tab PO BEDTIME [facility] Last Admin: 08/13/16 21:27 Dose: 1 tab Sertraline HCl (Zoloft*) 200 mg PO DAILY [facility] Last Admin: 08/14/16 09:32 Dose: 200 mg Trimethobenzamide HCl (Tigan Cap*) 300 mg PO Q8H PRN PRN Reason: NAUSEA Last Admin: 06/30/16 10:34 Dose: 300 mg Vital Signs 08/13/16 08/13/16 08/13/16 20:00 21:27 21:28 Temperature Pulse Rate Respiratory 15 16 16 Rate Blood Pressure (mmHg) O2 Sat by Pulse Oximetry 08/13/16 08/13/16 08/14/16 23:27 23:28 08:30 Temperature Pulse Rate Respiratory 16 16 16 Rate Blood Pressure (mmHg) O2 Sat by Pulse Oximetry 08/14/16 08/14/16 08/14/16 09:31 11:30 11:31 Temperature 98.2 F Pulse Rate 66 Respiratory 16 16 16 Rate Blood Pressure 118/53 (mmHg) O2 Sat by Pulse 96 Oximetry 08/14/16 13:31 Temperature Pulse Rate Respiratory 16 Rate Blood Pressure (mmHg) O2 Sat by Pulse Oximetry Oxygen Devices in Use Now: Nasal Cannula Appearance: Morbidly obese female lying in bed, NAD Eyes: No Scleral Icterus Ears/Nose/Mouth/Throat: Mucous Membranes Moist Respiratory: Symmetrical Chest Expansion and Respiratory Effort, Clear to Auscultation Cardiovascular: NL Sounds; No Murmurs; No JVD, RRR, No Edema Abdominal: NL Sounds; No Tenderness; No Distention Extremities: No Clubbing, Cyanosis Skin: No Rash or Ulcers, No Nodules or Sclerosis Neurological: Alert and Oriented x 3 Result Diagrams: 08/01/16 08:12 08/01/16 08:12 Assess/Plan/Problems-Billing Assessment: Ms. Anthony is a 45 yo female with a PMHx of super morbid obesity with BMI 105 ( now improved to 90), anxiety/depression who originally presented with R lower leg fracture s/p ORIF 03/17 complicated by wound dehiscence and deep infection s /p multiple return trips to OR, wound vac (now removed) who is undergoing medically supervised weight loss and mobilization with success. - Patient Problems (1) Fracture of right tibia and fibula Current Visit: Yes Status: Acute Code(s): S82.201A - UNSP FRACTURE OF SHAFT OF RIGHT TIBIA, INIT FOR CLOS FX; S82.401A - UNSP FRACTURE OF SHAFT OF RIGHT FIBULA, INIT FOR CLOS FX SNOMED Code(s): 22892071 Comment: S/P ORIF right tib-fib 03/17/16. S/P wound dehiscence and multiple trips to OR for debridement. Pt has been up and walking with assistance (6 steps ). Continue doxycycline. Continue to work on increasing weight bearing. (2) Morbid obesity with BMI of 70 and over, adult Current Visit: Yes Status: Chronic Priority: High Code(s): E66.9 - OBESITY , UNSPECIFIED; Z68.45 - BODY MASS INDEX (BMI) 70 OR GREATER, ADULT SNOMED Code (s): 390579446 Comment: Pt's weight has plateaued. She is making more changes to her diet. Continue MVI, vitamin D, iron. Will start B12 supplementation given low normal B12 level. (3) Depression Current Visit: Yes Status: Chronic Code(s): F32.9 - MAJOR DEPRESSIVE DISORDER, SINGLE EPISODE, UNSPECIFIED SNOMED Code(s): 28848844 Comment: Continue zoloft 200mg daily and xanax for anxiety. (4) DVT prophylaxis Current Visit: Yes Status: Acute Priority: High Code(s): UKQ3055 - SNOMED Code(s): 345076208 Comment: SQ Heparin. (5) Full code status Current Visit: Yes Status: Chronic Priority: High Code(s): Z78.9 - OTHER SPECIFIED HEALTH STATUS SNOMED Code(s): 855360963 Status and Disposition: d/c to [facility] 08/16/16
[2016-08-14] MEDS: Senna TAB PO SCH (20:02)
[2016-08-14] MEDS: ALPRAZolam TAB* 0.5 MG PO PRN (22:44)
[2016-08-15] MEDS: Heparin VIAL(*) 5000 UNITS/ML VIAL (FIVE THOUSAND) SUBCUT SCH ×3 (06:11→21:56)
[2016-08-15] MEDS: Metoclopramide TAB* 10 MG PO SCH ×4 (08:32→20:01)
[2016-08-15] MEDS: Ferrous Sulfate TAB* 325 MG PO SCH (08:33)
[2016-08-15] MEDS: Multivitamins/Minerals TAB PO SCH (08:33)
[2016-08-15] MEDS: Cyanocobalamin TAB* 500 MCG PO SCH (09:16)
[2016-08-15] MEDS: Cholecalciferol TAB* 1000 UNITS PO SCH (09:17)
[2016-08-15] MEDS: Oxybutynin TAB* 5 MG PO SCH ×3 (09:18→20:01)
[2016-08-15] MEDS: oxyCODONE/Acetamin 5/325 MG* TAB PO PRN ×2 (09:18→20:02)
[2016-08-15] MEDS: Sertraline* 100 MG TAB PO SCH (09:19)
[2016-08-15] MEDS: DOXYcycline CAP(*) 100 MG PO SCH ×3 (09:21→17:48)
[2016-08-15 11:55] VITALS: BP 112/52
[2016-08-15] MEDS: Senna TAB PO SCH (21:04)
[2016-08-15] MEDS: ALPRAZolam TAB* 0.5 MG PO PRN (21:56)
[2016-08-16] MEDS: Heparin VIAL(*) 5000 UNITS/ML VIAL (FIVE THOUSAND) SUBCUT SCH (06:27)
[2016-08-16] MEDS: Metoclopramide TAB* 10 MG PO SCH ×2 (08:25→11:53)
[2016-08-16] MEDS: Cholecalciferol TAB* 1000 UNITS PO SCH (09:03)
[2016-08-16] MEDS: Oxybutynin TAB* 5 MG PO SCH (09:03)
[2016-08-16] MEDS: DOXYcycline CAP(*) 100 MG PO SCH ×2 (09:03→12:30)
[2016-08-16] MEDS: Cyanocobalamin TAB* 500 MCG PO SCH (09:03)
[2016-08-16] MEDS: oxyCODONE/Acetamin 5/325 MG* TAB PO PRN (09:04)
[2016-08-16] MEDS: Sertraline* 100 MG TAB PO SCH (09:04)
--- NOTE | 2016-08-16 09:20 | PN ---
Subjective Date of Service: 08/16/16 Interval History: Pt is tearful about going to [facility]. She is most worried about skin breakdown in her perineum. She states it is very embarrassing to need help to stay clean and dry. Objective Active Medications: Acetaminophen (Tylenol Tab*) 650 mg PO Q4H PRN PRN Reason: FEVER/PAIN Alprazolam (Xanax Tab*) 0.5 mg PO Q6H PRN PRN Reason: ANXIETY Last Admin: 08/15/16 21:56 Dose: 0.5 mg Cholecalciferol (Vitamin D Tab*) 2,[address] [facility] Last Admin: 08/16/16 09:03 Dose: 2,000 units Cyanocobalamin (Vitamin B12 Tab*) 1,[address] [facility] Last Admin: 08/16/16 09:03 Dose: 1,000 mcg Docusate Sodium (Colace Cap*) 100 mg PO BID PRN PRN Reason: CONSTIPATION Last Admin: 06/13/16 09:05 Dose: 100 mg Doxycycline Hyclate (Vibramycin Cap(*)) 100 mg PO 0900,1300,1800 [facility] Last Admin: 08/16/16 09:03 Dose: 100 mg Ferrous Sulfate (Ferrous Sulfate Tab*) [address] [facility] Last Admin: 08/15/16 08:33 Dose: Not Given Heparin Sodium (Porcine) (Heparin Vial(*)) 5,[address] [facility] Last Admin: 08/16/16 06:27 Dose: 5,000 units Metoclopramide HCl (Reglan Tab*) [address] [facility] Last Admin: 08/16/16 08:25 Dose: 10 mg Multivitamins/Minerals (Theragran/Minerals Tab*) [address] [facility] Last Admin: 08/15/16 08:33 Dose: Not Given Oxybutynin Chloride (Ditropan Tab*) [address] [facility] Last Admin: 08/16/16 09:03 Dose: 5 mg Oxycodone/Acetaminophen (Percocet 5/325 Tab*) 1 tab PO Q4H PRN PRN Reason: PAIN Last Admin: 08/15/16 20:02 Dose: 1 tab Oxycodone/Acetaminophen (Percocet 5/325 Tab*) 2 tab PO Q4H PRN PRN Reason: PAIN Last Admin: 08/16/16 09:04 Dose: 2 tab Phenazopyridine HCl (Pyridium Tab*) 100 mg PO TID PRN PRN Reason: dysuria Last Admin: 08/11/16 21:58 Dose: 100 mg Polyethylene Glycol/Electrolytes (Miralax*) 17 gm PO DAILY PRN PRN Reason: CONSTIPATION Senna (Senokot Tab*) 1 tab PO BEDTIME [facility] Last Admin: 08/15/16 21:04 Dose: Not Given Sertraline HCl (Zoloft*) 200 mg PO DAILY [facility] Last Admin: 08/16/16 09:04 Dose: 200 mg Vital Signs 08/15/16 08/15/16 08/15/16 09:18 09:55 11:18 Temperature Pulse Rate Respiratory 16 16 16 Rate Blood Pressure (mmHg) O2 Sat by Pulse 97 Oximetry 08/15/16 08/15/16 08/15/16 11:53 16:08 20:00 Temperature 98.3 F Pulse Rate 66 Respiratory 16 18 Rate Blood Pressure 112/52 (mmHg) O2 Sat by Pulse 99 99 Oximetry 08/15/16 08/15/16 08/15/16 20:02 21:56 22:02 Temperature Pulse Rate Respiratory 18 18 18 Rate Blood Pressure (mmHg) O2 Sat by Pulse Oximetry 08/15/16 08/16/16 08/16/16 23:56 08:00 09:04 Temperature Pulse Rate Respiratory 16 16 16 Rate Blood Pressure (mmHg) O2 Sat by Pulse Oximetry Oxygen Devices in Use Now: Nasal Cannula - 99%-2L Appearance: Middle aged super morbidly obese female lying in bed, NAD Eyes: No Scleral Icterus Ears/Nose/Mouth/Throat: Mucous Membranes Moist Respiratory: Symmetrical Chest Expansion and Respiratory Effort, Clear to Auscultation Cardiovascular: NL Sounds; No Murmurs; No JVD, RRR, No Edema Abdominal: NL Sounds; No Tenderness; No Distention - obese Extremities: No Clubbing, Cyanosis Skin: No Rash or Ulcers, No Nodules or Sclerosis Neurological: Alert and Oriented x 3 Result Diagrams: 08/01/16 08:12 08/01/16 08:12 Assess/Plan/Problems-Billing Assessment: Ms. Anthony is a 45 yo female with a PMHx of super morbid obesity with BMI 105 ( now improved to 90), anxiety/depression who originally presented with R lower leg fracture s/p ORIF 03/17 complicated by wound dehiscence and deep infection s /p multiple return trips to OR, wound vac (now removed) who is undergoing medically supervised weight loss and mobilization with success. - Patient Problems (1) Fracture of right tibia and fibula Current Visit: Yes Status: Acute Code(s): S82.201A - UNSP FRACTURE OF SHAFT OF RIGHT TIBIA, INIT FOR CLOS FX; S82.401A - UNSP FRACTURE OF SHAFT OF RIGHT FIBULA, INIT FOR CLOS FX SNOMED Code(s): 04021246 Comment: S/P ORIF right tib-fib fracture 03/17/16. S/P wound dehiscence and multiple trips to OR for debridement. Pt has been up and walking with assistance. Continue doxycycline. Continue to work on increasing weight bearing. (2) Morbid obesity with BMI of 70 and over, adult Current Visit: Yes Status: Chronic Priority: High Code(s): E66.9 - OBESITY , UNSPECIFIED; Z68.45 - BODY MASS INDEX (BMI) 70 OR GREATER, ADULT SNOMED Code (s): 914204711 Comment: Pt's weight has plateaued. She is making more changes to her diet however I was just informed the patient's continues to bring in food for Kim to eat. She sometimes has refused and other times not. I am concerned this behavior will continue once she is at [facility] and may not be able to be policed as easily as in the hospital. Continue MVI, vitamin D, iron, B12. (3) Depression Current Visit: Yes Status: Chronic Code(s): F32.9 - MAJOR DEPRESSIVE DISORDER, SINGLE EPISODE, UNSPECIFIED SNOMED Code(s): 43324321 Comment: Continue zoloft 200mg daily and xanax for anxiety. (4) DVT prophylaxis Current Visit: Yes Status: Acute Priority: High Code(s): UQS5103 - SNOMED Code(s): 646702320 Comment: SQ Heparin. (5) Full code status Current Visit: Yes Status: Chronic Priority: High Code(s): Z78.9 - OTHER SPECIFIED HEALTH STATUS SNOMED Code(s): 335098468 Status and Disposition: d/c to [facility]
[2016-08-16] MEDS: Multivitamins/Minerals TAB PO SCH (09:22)
[2016-08-16] MEDS: Ferrous Sulfate TAB* 325 MG PO SCH (09:22)
--- NOTE | 2016-08-16 10:30 | PN ---
Progress Note - Progress Note Note: Kim seen at bedside. She is to be transferred to [facility] today. Overall doing well with progression of her weight bearing and continues to work towards progression of ambulation XRAY of the right ankle/ distal tib/fib shows satisfactory position of hardware with evidence of fracture healing. She may continue with her current ambulation goals, follow up with Dr. Connelly in 6 weeks.
--- NOTE | 2016-08-17 03:32 | DS ---
DISCHARGE SUMMARY: DATE OF ADMISSION INITIALLY TO ACUTE CARE: 03/15/16 DATE OF DISCHARGE TO FIRST SWING STATUS: 03/19/16 DATE OF READMISSION TO ACUTE INPATIENT STAY: 04/06/16 DATE OF DISCHARGE TO SWING STATUS: 05/13/16 DATE OF DISCHARGE FROM HOSPITAL: 08/16/16 PRIMARY CARE PROVIDER: Denton Gill MD PRINCIPAL DIAGNOSIS: Right tib-fib fracture status post ORIF and multiple trips back to the OR for debridement and VAC placement for infection. SECONDARY DIAGNOSES: 1. Super-morbid obesity. 2. Iron and B12 deficiency. 3. Protein-calorie malnutrition. 4. Acute kidney injury - resolved. 5. Chronic respiratory failure - stable. 6. Chronic anemia. 7. Anxiety and depression. DISCHARGE MEDICATIONS: 1. Percocet 5/325 one or two tabs q. 4 hours p.r.n. pain. 2. Zoloft 200 mg p.o. daily. 3. Senna 1 tab p.o. q.h.s. 4. MiraLAX 17 g p.o. daily p.r.n. constipation. 6. Pyridium 100 mg p.o. t.i.d. p.r.n. bladder spasm. 7. Oxybutynin 5 mg p.o. t.i.d. 8. Multivitamin 1 tab p.o. daily. 9. Reglan 10 mg p.o. q.a.c. and h.s. 10. Ferrous sulfate 325 mg p.o. daily. 11. Colace 100 mg p.o. twice daily p.r.n. constipation. 12. Doxycycline 100 mg p.o. t.i.d. at 9 a.m., 1 p.m., and 6 p.m. 13. Vitamin B12 1000 mcg p.o. daily. 14. Vitamin D 2000 units p.o. daily. 15. Tylenol 650 mg p.o. q.4 hours p.r.n. pain. 16. Xanax 0.5 mg p.o. q. 6 hours p.r.n. anxiety. HOSPITAL COURSE: Ms. Anthony is a 46-year-old female with a history of super- morbid obesity who presented to the emergency room initially on 03/15/16 complaining of a fall. The patient was identified to have a BMI of 106 upon admission. The patient was found to have a right tib-fib fracture. She was taken to the operating room on 03/17/16 where she underwent ORIF with plating of the right distal tibia. The patient had a complicated course where she developed infection and was in and out of the operating room 5 more times for debridement and wound VAC placement. The patient was ultimately discharged to swing bed status. However, due to acute issues, was brought back to acute status and subsequently discharged back to swing bed status, where she has remained since 05/13/16. The patient has been working intensively with Dr. 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 The patient has lost a total of 149 pounds over the course of her hospitalization. The patient has also gone from complete non-weightbearing to weightbearing as tolerated. This has been a very slow process as there was concern that she had been non-weightbearing for so long, that she could sustain fracture with just standing up. The patient, with physical therapy on 08/13/16, was able to sit to stand x4. She was able to maintain standing x15 seconds with each attempt. The patient was also able to ambulate 4 steps twice as well as 6 steps 3 times. This was with a 2-person supervision. At this point, the patient is now down to a weight and mobility level where she is able to be transferred to subacute rehab. The patient has been accepted and transferred to [facility] where she will continue to work on her mobility and weight loss. The patient has been working intensively with the dietitians here. There have been concerns with the patient's bringing in food to her and her not having the will power to say no and she eats this and her meal provided by the hospital. It is absolutely imperative that the patient's not be allowed to bring food in. The patient likely would benefit from ongoing psychiatric care, not only for depression and anxiety , but for likely an eating disorder. The patient has not been seen by Psychiatry since June 2016, at which time the focus was more on her depression. The patient was found to be nutritionally deficient in iron, B12, and vitamin D. Supplementation has been provided. The patient will also continue with a regular bowel regimen and doxycycline 100 mg 3 times daily. The duration of treatment is not completely clear at this point. Dr. Merchant has followed the patient throughout this hospitalization and will provide recommendations on how long the duration of therapy should be. The patient's Golden catheter is being discontinued on the day of discharge. Skin breakdown has been a major issue for the patient. She states that she is very embarrassed by the fact that she needs help with staying clean and dry. Nystatin powders and creams did not help with repairing her skin when it became irritated. Skin prep pads worked the best for the patient. FOLLOWUP CONCERNS: The patient is being discharged to [facility] today, 08/16. ACTIVITY LEVEL: As tolerated. The patient is full weightbearing as tolerated. CONDITION ON DISCHARGE: Stable. DIET: Low fat, no concentrated sweets, and small portions. Less than 1700 kcals per day with at least 100 g protein per day. No outside food. TIME SPENT: Forty minutes was spent discharging this patient. CC: Denton Gill MD; [facility] * [id number]/[facility]PS #: [id number] MTDD
== END 2016-08-16 13:00 | DRG 862 ==
LOC: SSU 15:55
PROVIDERS: ADMIT Hospitalist; ATTEND Hospitalist
PROC: 2W0QX6Z Change Pressure Dressing on Right Lower Leg (ICD-10-PCS; principal; 2016-05-13)
PROC: 2W0QX6Z Change Pressure Dressing on Right Lower Leg (ICD-10-PCS; 2016-05-17)
PROC: 3E0U33Z Introduction of Anti-inflammatory into Joints, Percutaneous Approach (ICD-10-PCS; 2016-06-14)
PROC: 3E0U3BZ Introduction of Anesthetic Agent into Joints, Percutaneous Approach (ICD-10-PCS; 2016-06-14)
DX: S82.301D Unspecified fracture of lower end of right tibia, subsequent encounter for closed fracture with routine healing (principal); T81.31XA Disruption of external operation (surgical) wound, not elsewhere classified, initial encounter; J96.10 Chronic respiratory failure, unspecified whether with hypoxia or hypercapnia; N17.9 Acute kidney failure, unspecified; E46 Unspecified protein-calorie malnutrition; Z68.45 Body mass index [BMI] 70 or greater, adult; D62 Acute posthemorrhagic anemia; E66.2 Morbid (severe) obesity with alveolar hypoventilation; L03.311 Cellulitis of abdominal wall; F32.5 Major depressive disorder, single episode, in full remission; F41.9 Anxiety disorder, unspecified; E55.9 Vitamin D deficiency, unspecified; D63.8 Anemia in other chronic diseases classified elsewhere; M54.5 Low back pain; L29.9 Pruritus, unspecified; R19.7 Diarrhea, unspecified; R94.6 Abnormal results of thyroid function studies; R11.2 Nausea with vomiting, unspecified; M17.12 Unilateral primary osteoarthritis, left knee; R60.0 Localized edema; Z71.3 Dietary counseling and surveillance; X58.XXXD Exposure to other specified factors, subsequent encounter; Y83.1 Surgical operation with implant of artificial internal device as the cause of abnormal reaction of the patient, or of later complication, without mention of misadventure at the time of the procedure; Y92.239 Unspecified place in hospital as the place of occurrence of the external cause; E53.8 Deficiency of other specified B group vitamins; E61.1 Iron deficiency; F50.89 Other specified eating disorder; Z82.49 Family history of ischemic heart disease and other diseases of the circulatory system
CPT/HCPCS: 36415; 80048; 80053; 82306; 82607; 82652; 82728; 83540; 83550; 84134; 84439; 84443; 84466; 84479; 85025; 85652; 86140; 86141; 94010; 94660; 94760; 97530; 99214; A9270-GY; J0690; J0780; J1040; J1644; J2001; J2250; L2180; Q0164

== ENCOUNTER 2018-06-04 14:35 | Emergency (ER) | payer BC, MEDICAID ==
[2018-06-04] MEDS ORDERED: NS 0.9% 1000 ML* 1,000 ML IV ONE (15:06)
--- NOTE | 2018-06-04 15:12 | ED ---
Abdominal Pain/Female - HPI Summary HPI Summary: A 48 y/o female brought in by ambulance presents to the ED c/o cold and UTI symptoms for 3 days. In the ED room, the patient has a pulse of 79 BPM and O2 saturation of 100%. As per triage, "Pt has been having a cold for the past few days. Pt states that she's had left sided flank pain for the past few days and it's been getting progressively worse. Pt states that today when she sat up to take her medications that the pain became more intense. Pt currently resides at [facility] for the past two years due to an ankle injury that's restricting her ability to walk. Pt also states that she is prone to UTI's". According to the patient, she hasn't been feeling well for the past few days. She stated that she has been experiencing intermittent flank pain. Initially, she thought it was just her cold symptoms, but last night it became much worse. She stated that she has a history of asymptomatic UTI where she would have no burning or pain, but out of no where she will get flank pain and nausea. Patient denies any abdominal pain, but thinks she has a fever because her baseline body temperature is 96.8 and her temperature is 98.6. Additionally, she has a cough that is directly related to her cold. She stated that she has a long history of anxiety especially so when she sometimes lays on her back and she has a anxiety/ panic attack where she cannot breath. PMHx of high blood pressure, no heart disease. Patient takes Zoloft and Lasix (due to remaining fluid in her hips and LE). Patient has been living at [facility] for about 2 years. She was there for rehabilitation, but she cannot go home because she cannot get up the stairs. So, the patient noted that she is stuck there. Patient is emotional/ tearful. Patient sees family often. - History of Current Complaint Stated Complaint: ABD PAIN Time Seen by Provider: 06/04/18 14:45 Hx Obtained From: Patient Allergies/Adverse Reactions: Allergies Allergy/AdvReac Type Severity Reaction Status Date / Time MS Ondansetron [From Zofran] Allergy Shortness Verified 03/22/16 09:03 of Breath PMH/Surg Hx/FS Hx/Imm Hx Endocrine/Hematology History: Denies: Hx Diabetes, Hx Thyroid Disease, Hx Anemia Cardiovascular History: Denies: Hx Hypertension Respiratory History: Denies: Hx Asthma, Hx Chronic Obstructive Pulmonary Disease (COPD), Hx Lung Cancer, Hx Pneumonia, Hx Seasonal Allergies, Hx Sleep Apnea History: Reports: Hx Acute Renal Failure Denies: Hx Dialysis, Hx Kidney Infection, Hx Kidney Stones Musculoskeletal History: Reports: Hx Arthritis - joints with pain, Hx Orthopedic Injury Denies: Hx Back Problems, Hx Bursitis, Hx Tendonitis Sensory History: Reports: Hx Contacts or Glasses Opthamlomology History: Reports: Hx Contacts or Glasses Neurological History: Denies: Hx Dementia, Hx Seizures Psychiatric History: Reports: Hx Eating Disorder, Hx Depression Denies: Hx Anxiety, Hx Attention Deficit Hyperactivity Disorder, Hx Panic Disorder, Hx Post Traumatic Stress Disorder, Hx Inpatient Treatment, Hx Schizophrenia, Hx Bipolar Disorder, Hx Suicide Attempt, Hx of Violent Episodes Against Others, Hx Substance Abuse, Other Psychiatric Issues/Disorders - Surgical History Surgery Procedure, Year, and Place: [place] teeth extraction at age 20. ORIF of R ankle 03/17/16. 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 Negative: Abdominal Pain Positive: Anxious All Other Systems Reviewed And Are Negative: Yes Physical Exam - Summary Physical Exam Summary: GENERAL: Patient is a morbidly obese female who is lying comfortable in the stretcher. Patient is not in any acute respiratory distress. HEAD AND FACE: Normocephalic EYES: PERRLA, EOMI x 2. EARS: Hearing grossly intact. MOUTH: Oropharynx within normal limits. NECK: Supple, trachea is midline, no adenopathy, no JVD, no carotid bruit. CHEST: Symmetric, no tenderness at palpation LUNGS: Clear to auscultation bilaterally. No wheezing or crackles. Rhonchi anteriorly CVS: Regular rate and rhythm, S1 and S2 present, no murmurs or gallops appreciated. ABDOMEN: Soft, non-tender. Bowel sounds are normal. No abdominal abnormal pulsations. EXTREMITIES: Full ROM in all major joints, no edema, no cyanosis or clubbing. NEURO: Alert and oriented x 3. No acute neurological deficits. Speech is normal and follows commands. SKIN: Dry and warm Triage Information Reviewed: Yes Vital Signs Reviewed: Yes Diagnostics - Laboratory Result Diagrams: 06/04/18 15:25 06/04/18 14:40 Lab Statement: Any lab studies that have been ordered have been reviewed, and results considered in the medical decision making process. - Radiology CXR Radiology Interpretation Completed By: Radiologist Summary of Radiographic Findings: CARDIOMEGALY WITH PULMONARY VASCULAR CONGESTION. ED PHYSICIAN REVIEWED THIS RADIOLOGY REPORT. Abdominal Pain Fem Course/Dx - Course Course Of Treatment: A 48 y/o female brought in by ambulance presents to the ED c/o cold and UTI symptoms for 3 days. According to the patient, she hasn't been feeling well for the past few days. She stated that she has been experiencing intermittent flank pain. Initially, she thought it was just her cold symptoms, but last night it became much worse. Physical examination findings significant for patient is morbidly obese and rhonchi anteriorly. A CXR revealed cardiomegaly with pulmonary vascular congestion. Hematology, coagulation, Chemistry, urinalysis, and serology screens were done. No significant laboratory abnormalities were found except hyperglycemia of 103 mg/dL. Troponin I was 0.00. Influenza screens were both negative. Urinalysis revealed blood, nitrates, WBC, RBC, and bacteria. In the ED course, the patient received Lasix and IV fluids. Patient care was discussed with hospitalist, Dr. Keo Caro, who will consult with the patient in the ED room and stated patient does not need admission. Patient will be signed out to Dr. Vicente Mccormack via Dr. Soheila Pena, pending Renal US and disposition, upon shift change on June 04, 2018 at 1900. Patient will be signd out with a diagnosis of UTI. - Diagnoses Provider Diagnoses: UTI (urinary tract infection) - Provider Notifications Discussed Care Of Patient With: Keo Caro Time Discussed With Above Provider: 17:00 Instructed by Provider To: Other - WILL CONSULT WITH PATIENT IN ED ROOM. Discharge - Sign-Out/Discharge Documenting (check all that apply): Sign-Out Patient - JOSSELYNFAR Signing out patient TO: Vicente Mccormack Receiving patient FROM: Soheila Pena - Discharge Plan Condition: Stable Referrals: Denton Gill MD [Primary Care Provider] - - Billing Disposition and Condition Condition: STABLE - Attestation Statements Document Initiated by Sohailibe: Yes Documenting Scribe: Niall Jackson Provider For Whom Scribjuan is Documenting (Include Credential): Soheila Pena MD Scribe Attestation: Niall Hagan, scrstellaed for Soheila Pena MD on 06/04/18 at 1906. Scribe Documentation Reviewed: Yes Provider Attestation: The documentation as recorded by the Niall swartz accurately reflects the service I personally performed and the decisions made by , Soheila Pena MD Status of Scribe Document: Viewed
[2018-06-04 15:53] LABS: Activated Partial Thrombo Time 31.2 seconds (26.0-36.3); INR 1.04 (0.77-1.02)
[2018-06-04 15:58] LABS: ABS Basophils 0 10^3/ul (0-0.2); ABS Eosinophils 0.4 10^3/ul (0-0.6); ABS Lymphocytes 0.6 10^3/ul (1.0-4.8); ABS Monocytes 0.3 10^3/ul (0-0.8); ABS Neutrophils 3.8 10^3/ul (1.5-7.7); ABS Nucleated RBC 0 10^3/ul; Hematocrit 32 % (35-47); Hemoglobin 10.1 g/dl (12.0-16.0); Lymphocyte % 12.1 %; Mean Corpuscular HGB Conc 32 g/dl (31-36); Mean Corpuscular Hemoglobin 26 pg (27-31); Mean Corpuscular Volume 82 fL (80-97); Mean Platelet Volume 6.9 fL (7.4-10.4); Nucleated Red Blood Cells % 0; Platelet Count 283 10^3/ul (150-450); Red Blood Count 3.92 10^6/ul (4.00-5.40); Red Cell Distribution Width 18 % (10.5-15); White Blood Count 5.1 10^3/ul (3.5-10.8)
[2018-06-04 16:04] LABS: Albumin 3.7 g/dL (3.2-5.2); BUN/Creatinine Ratio 16.7 (8-20); C Reactive Protein 63.51 mg/L (<8.01); Calcium 8.8 mg/dL (8.6-10.3); Globulin 3.8 g/dL (2-4); Potassium 3.7 mmol/L (3.5-5.0); Total Bilirubin 0.4 mg/dL (0.2-1.0); Total Protein 7.5 g/dL (6.4-8.9)
[2018-06-04] MEDS ORDERED: Furosemide IV* 10 MG/ML VIAL (40 MG) IV ONE (16:20)
[2018-06-04 18:03] LABS: Urine Appearance Clear; Urine Color Yellow; Urine Specific Gravity 1.015 (1.010-1.030)
[2018-06-04 18:04] LABS: Urine Blood 1+ (Negative); Urine Ketones Negative (Negative); Urine Protein 2+(100 mg/dL) (Negative); Urine Urobilinogen Negative (Negative)
[2018-06-04 18:05] LABS: Urine Bilirubin Negative (Negative); Urine Glucose Negative (Negative); Urine Nitrite Positive (Negative)
[2018-06-04 18:11] LABS: Urine Bacteria 1+ (Absent); Urine Red Blood Cell 3+(>10/hpf) (Absent); Urine White Blood Cell 3+(>20/hpf) (Absent)
[2018-06-04] MEDS ORDERED: cefTRIAXone(*) 1 GM in NS 0.9% 50 ML* 50 ML IVPB ONE (18:11)
[2018-06-04] MEDS ORDERED: Ketorolac INJ* 30 MG/ML 1 ML VIAL IV PUSH ONE (18:36)
--- NOTE | 2018-06-04 19:09 | ED ---
Progress - Progress Note Progress Note: Patient is received as a sign out from Dr. Pena to Dr. Mccormack at 1900 06/04/18 shift change pending US renal and disposition. US Renal Impression: Sonographically normal left kidney. This report was reviewed by ED physician. Re-Evaluation - Re-Evaluation First Eval Re-Evaluation Time: 20:48 Comment: Patient would rather go back to [facility] as she states she is more comfortable there. The patient is afebrile, hemodynamically stable. Patient does seem to have bladder infection or lower UTI as opposed to upper UTI. It is likely that she has cystitis as opposed to pyelonephritis. She will be discharged to home with levaquin for seven days. Course/Dx - Course Course Of Treatment: Patient is received as a sign out from Dr. Pena to Dr. Mccormack at 1900 06/04/18 shift change pending US renal and disposition. US Renal Impression: Sonographically normal left kidney. Patient would rather go back to [facility] as she states she is more comfortable there. The patient is afebrile, hemodynamically stable. Patient does seem to have bladder infection or lower UTI as opposed to upper UTI. It is likely that she has cystitis as opposed to pyelonephritis. She will be discharged to home with levaquin for seven days. - Diagnoses Provider Diagnoses: Cystitis - Provider Notifications Time Discussed With Above Provider: 17:00 Instructed by Provider To: Other - WILL CONSULT WITH PATIENT IN ED ROOM. Discharge - Sign-Out/Discharge Documenting (check all that apply): Patient Departure - discharge - Discharge Plan Condition: Stable Disposition: HOME Prescriptions: Levofloxacin TAB* [Levaquin TAB*] 750 mg PO DAILY #7 tab Patient Education Materials: Urinary Tract Infection in Women (ED) Referrals: Denton Gill MD [Primary Care Provider] - 2 Days Additional Instructions: RETURN TO ED WITH ANY NEW OR WORSENING SYMPTOMS. FOLLOW UP WITH PRIMARY CARE PHYSICIAN WITHIN 2 DAYS. - Attestation Statements Document Initiated by Scribe: Yes Documenting Scribe: AMI RICE Provider For Whom Lorenzo is Documenting (Include Credential): HOANG MCCORMACK MD Scribe Attestation: AMI Hagan , scribed for HOANG MCCORMACK MD on 06/04/18 at 2054. Status of Scribe Document: Ready
--- NOTE | 2018-06-04 20:33 | CONS ---
CONSULTATION NOTE: ADDENDUM: Please note the UA did come back. The UA does show 1+ blood, positive nitrites, 2+ leukocyte esterase. At this point, I did touch base with [facility]. They are comfortable with accepting her back. Renal ultrasound is pending, looking for hydronephrosis but again given she has no CVA tenderness and the fact that the pain is gone now, argues against the stone. I would recommend discharging her back to [facility] with close observation with vital signs. I will put her on antibiotic therapy in the form of, give her Rocephin tonight and start her on Vantin 200 mg b.i.d. or ciprofloxacin and monitor for any progressive worsening pain or symptoms. I would start Flomax as well and monitor frequent vital signs. I will touch base with nursing staff over there to explain what my concerns are, but again, her symptoms seem to be improved and the patient would like to be discharged. She is not showing signs of grossly infected stone. There is no evidence of white blood cell count. The CRP is okay. There is no fever here. She is not tachy. She is not hypotensive. She does not appear to be septic. This could be just ascending UTI, could be hemorrhagic cystitis, so again I think that we should treat this, monitor her symptoms, and see if she improves. If she does not, then I would consider getting her to a place that can do a CAT scan given her size for further definitive evaluation and possibly urology evaluation. I did discuss this with , she is in agreement. I also discussed this again with Dr. Campos who is my attending now, he was in agreement and I also relayed this to the director over at [facility]. FILIPPO GRANDA, BRANDY [id number]/[place] #: [id number] SHANA
[2018-06-04 21:45] VITALS: BP 101/65
--- NOTE | 2018-06-04 21:55 | CONS ---
ADDENDUM NOW INCLUDED ON THIS REPORT CC: [facility] * CONSULTATION REPORT: DATE OF CONSULT: 06/04/18 PRIMARY CARE PROVIDER: Michael Vegas. ATTENDING PHYSICIAN WHILE IN THE HOSPITAL: Dr. Keo Caro (report dictated by Herrera Tang, BRANDY) REQUESTING PHYSICIAN IN CONSULT: Dr. Pena. REASON FOR MEDICAL CONSULTATION: Evaluation for admission. HISTORY OF PRESENT ILLNESS: Ms. Anthony is a 48-year-old female patient who is morbidly obese. She has a weight of 652 pounds, history of a right tibial- fibular fracture, status post several I and Ds and ORIF, who resides at [facility] for the last 2 years. She has a history of POLY, generalized anxiety disorder, history of anemia, anxiety, and history of chronic respiratory failure , who is coming in to the ED today stating that phone call was received by myself from nursing staff in [facility] that the patient had a sudden onset of left flank pain with associated dysuria. I felt that the patient needed to be evaluated at that point given the concern of a possible infected kidney stone. The patient was sent to the ED. She was evaluated here. In talking with the patient, she said that she has had progressive worsening flank pain in the last couple days. It coupled with the fact that she has been having rhinorrhea, having pressure behind her eyes, feeling stuffed up. She denies having any chest pain. Denies any shortness of breath. Denies any fevers or chills. She states they have been taking her temperature daily at [facility] and it has been stable and she states there have been people over there with URI symptoms. She was concerned today because of the flank pain. She states she has had this in the past and it steadily increased, but she says it did not come on suddenly. It has been going on for the last few days. She has had no associated nausea, no associated vomiting and she denies any dysuria, frequency or hesitancy to me, but there was concern, however, ultimately, again they weighed here, she was 652 pounds and they were unable to do CT imaging. They did not have a urinalysis here. There was concern based on chest x-ray, which was of poor quality that there may be CHF and we were asked to evaluate for admission. PAST MEDICAL HISTORY: Significant for: 1. Morbid obesity. 2. Right tibial-fibular fracture, status post ORIF and I and D. 3. Generalized anxiety disorder. 4. POLY. 5. Chronic respiratory failure. 6. Anemia. 7. Anxiety. PAST SURGICAL HISTORY: 1. She has had an ORIF of the right tibia-fibula. 2. She has had I and D with VAC placement, which has now subsequently been removed. MEDICATIONS: Home Meds: We will need to update this as this is an old list. We will try to get list from [facility]. She now states that she is takin. Lasix 40 mg daily. 2. She is on vitamin D3 5000 units daily. 3. Vitamin C 1 tablet p.o. daily. 4. Zoloft 200 mg by mouth daily. 5. Percocet 2 tablets every 6 hours as needed. 6. Zofran 1 tablet every 6 hours as needed for nausea. 7. Nystatin powder 1 application topically t.i.d. to affected area. 8. Lasix 40 mg by mouth daily. 9. BuSpar 7.5 mg by mouth twice a day. That was according to Dr. Mcclendon. We will need clarify this. ALLERGIES: Allergies to medications include no known drug allergies. There was zofran listed in the computer, but she states that is not true. FAMILY HISTORY: She states her mother is healthy. Father has a history of aortic stenosis. SOCIAL HISTORY: She does not smoke. She does not drink. She resides at [facility]. Surrogate decision maker is her . REVIEW OF SYSTEMS: There is no documented fever. She denies any significant weight change. She denied having any double vision. There was no ear discharge. She denied having any rhinorrhea. There was no sore throat. There was no thyroid enlargement. She denies having any chest pain. There was no orthopnea. There was no nocturnal dyspnea. She denies having any abdominal pain. There is no nausea or vomiting. She does admit to the left-sided flank pain. She denied any dysuria or frequency. Again, no nausea or vomiting. She denies having any seizure. No loss of consciousness. No pruritus and no skin ulcerations. Review of 14 systems completed, all others negative. PHYSICAL EXAM: Vital Signs: When she presented, blood pressure 126/96, pulse 102, respirations 18, sat 98%, temperature 97.6. General: At this time, Ms. Anthony is a 48-year-old female patient. She is sitting in the ED stretcher. She does not appear to be in any acute distress. She is morbidly obese. HEENT : Head: Atraumatic, normocephalic. Eyes: EOMs intact. Sclerae anicteric and not pale. Neck was supple. Throat: Oral mucosa appears to be moist. No oropharyngeal erythema. Heart: Sounds S1, S2. She had a regular rate and rhythm. There were no murmurs, rubs, or gallops. Her lungs were clear to auscultation. There were no wheezes, rales, or rhonchi. Her abdomen was soft, flat, nontender. There was no CVA tenderness. Extremities: Again pulses were diminished. She did have +2 pedal edema. She had 5/5 strength in the upper extremities. She has limited range of motion to the lower extremities given the size. Neurologically, she is awake, alert, and oriented x3. There are no gross focal deficits. Skin: Intact. She does have an old healing incision to the right tibia. DIAGNOSTIC STUDIES/LAB DATA: Labs: WBC 5.1, RBC of 3.92, hemoglobin of 10.1, hematocrit of 32, platelet count of 283. INR 1.04, PTT of 31.2. Sodium 139, potassium 3.7, chloride of 101, bicarb of 33, BUN 16, creatinine of 0.96, glucose 103. Lactate 0.9. Calcium 8.8. Total bili 0.4, AST 12, ALT 11, alk phos 50. Troponin 0. CRP at 63. BNP 58. Albumin 3.7. Flu swab negative. She had a chest x-ray obtained today, which showed cardiomegaly with pulmonary vascular congestion, although when I reviewed the film, it is a poorly penetrated film, very difficult to read. Old medical records were reviewed. ASSESSMENT AND PLAN: Ms. Anthony is a 48-year-old female patient with multiple medical problems, coming in to the ER today with complaints of flank pain that was again, initially told that it was sudden in onset in nature with urinary symptoms. After evaluating the patient though, however, she gives a different story that she has had gradually worsening flank pain on the left side, in this exam with no CVA tenderness. Urine at this point is paramount to her evaluation. If there is no bleed in the urine, she certainly could be discharged back to [facility]. If there is blood in the urine, again and if it does appear to be infected, this could be in the setting of a UTI or possible pyelonephritis, although unlikely, her white count is normal, she has no fever and the pain has been gradually getting worse, which argue against a stone. We can consider getting a renal ultrasound or a KUB to rule out stones, but I suspect this is less likely given the way she describes her symptoms and the gradual onset of pain getting worse. My plan would be to await urine. I would recommend starting her on Augmentin and azithromycin for her upper respiratory symptoms. She could be discharged with followup at that case at [facility]. In terms of the pulmonary edema, again it is a poor x-ray, she sounds clear on exam. She has been getting Lasix. She states to her knowledge , her weight has increased. She is on Lasix for lower extremity edema. Again, she could continue with this in the outpatient setting and follow with the [facility] staff. Her kidney function appears to be stable. Does not appear to be worse at baseline, which again argues against stone or obstruction. If there is blood in the urine, then again I would consider renal ultrasound and maybe a KUB, consider putting her on Flomax as well and following. She said she has had similar episodes in the past and with appropriate antibiotic therapy she has improved. So, again the plan will be to get a UA, follow this and then make further recommendations based on this. I did discuss this with Dr. Caro; he was in agreement. I discussed with Dr. Pena. I will continue to follow her and make decision depending on further workup. ADDENDUM: Please note the UA did come back. The UA does show 1+ blood, positive nitrites , 2+ leukocyte esterase. At this point, I did touch base with [facility]. They are comfortable with accepting her back. Renal ultrasound is pending, looking for hydronephrosis but again given she has no CVA tenderness and the fact that the pain is gone now, argues against the stone. I would recommend discharging her back to [facility] with close observation with vital signs. I will put her on antibiotic therapy in the form of, give her Rocephin tonight and start her on Vantin 200 mg b.i.d. or ciprofloxacin and monitor for any progressive worsening pain or symptoms. I would start Flomax as well and monitor frequent vital signs. I will touch base with nursing staff over there to explain what my concerns are, but again, her symptoms seem to be improved and the patient would like to be discharged. She is not showing signs of grossly infected stone. There is no evidence of white blood cell count. The CRP is okay. There is no fever here. She is not tachy. She is not hypotensive. She does not appear to be septic. This could be just ascending UTI, could be hemorrhagic cystitis, so again I think that we should treat this, monitor her symptoms, and see if she improves. If she does not, then I would consider getting her to a place that can do a CAT scan given her size for further definitive evaluation and possibly urology evaluation. I did discuss this with , she is in agreement. I also discussed this again with Dr. Campos who is my attending now, he was in agreement and I also relayed this to the director over at [facility]. HERRERA TANG, BRANDY [id number]/CPS #: [id number]/CPS #: [id number] SHANA
--- NOTE | 2018-06-07 09:01 | ED ---
Progress - Progress Note Progress Note: Patient is received as a sign out from Dr. Pena to Dr. Mccormack at 1900 06/04/18 shift change pending US renal and disposition. US Renal Impression: Sonographically normal left kidney. This report was reviewed by ED physician. UPDATE: Patient's preliminary urine culture reveals 1-10,000 Escherichia coli and greater than 100,000 Providencia Stuartii. Patient was started on levofloxacin. Final results pending. Re-Evaluation - Re-Evaluation First Eval Re-Evaluation Time: 20:48 Comment: Patient would rather go back to [facility] as she states she is more comfortable there. The patient is afebrile, hemodynamically stable. Patient does seem to have bladder infection or lower UTI as opposed to upper UTI. It is likely that she has cystitis as opposed to pyelonephritis. She will be discharged to home with levaquin for seven days. Course/Dx - Course Course Of Treatment: Patient is received as a sign out from Dr. Pena to Dr. Mccormack at 1900 06/04/18 shift change pending US renal and disposition. US Renal Impression: Sonographically normal left kidney. Patient would rather go back to [facility] as she states she is more comfortable there. The patient is afebrile, hemodynamically stable. Patient does seem to have bladder infection or lower UTI as opposed to upper UTI. It is likely that she has cystitis as opposed to pyelonephritis. She will be discharged to home with levaquin for seven days. - Diagnoses Provider Diagnoses: Cystitis - Provider Notifications Time Discussed With Above Provider: 17:00 Instructed by Provider To: Other - WILL CONSULT WITH PATIENT IN ED ROOM. Discharge - Sign-Out/Discharge Documenting (check all that apply): Post-Discharge Follow Up - Discharge Plan Condition: Stable Disposition: HOME Prescriptions: Levofloxacin TAB* [Levaquin TAB*] 750 mg PO DAILY #7 tab Patient Education Materials: Urinary Tract Infection in Women (ED) Referrals: Denton Gill MD [Primary Care Provider] - 2 Days Additional Instructions: RETURN TO ED WITH ANY NEW OR WORSENING SYMPTOMS. FOLLOW UP WITH PRIMARY CARE PHYSICIAN WITHIN 2 DAYS. - Billing Disposition and Condition Condition: STABLE Disposition: Home
--- NOTE | 2018-06-08 07:33 | ED ---
Progress - Progress Note Progress Note: Patient is received as a sign out from Dr. Pena to Dr. Mccormack at 1900 06/04/18 shift change pending US renal and disposition. US Renal Impression: Sonographically normal left kidney. This report was reviewed by ED physician. UPDATE: Patient's preliminary urine culture reveals 1-10,000 Escherichia coli and greater than 100,000 Providencia Stuartii. Patient was started on levofloxacin. Final results pending. UPDATE: Patient's final urine culture reveals Escherichia coli is sensitive to Levaquin however Providencia stuartii is not. It is however sensitive to third and fourth generation cephalosporins as well as other IV antibiotics. Spoke with MARY Caldwell at [facility]. She reports the patient has been afebrile but has no other notes to indicate if the patient is feeling better or worse. She does confirm the patient is still taking Levaquin. She reports the patient may be seen today by Flori Wheatley NP. Will fax results to [phone]. magy Jay, donn. Re-Evaluation - Re-Evaluation First Eval Re-Evaluation Time: 20:48 Comment: Patient would rather go back to [facility] as she states she is more comfortable there. The patient is afebrile, hemodynamically stable. Patient does seem to have bladder infection or lower UTI as opposed to upper UTI. It is likely that she has cystitis as opposed to pyelonephritis. She will be discharged to home with levaquin for seven days. Course/Dx - Course Course Of Treatment: Patient is received as a sign out from Dr. Pena to Dr. Mccormack at 1900 06/04/18 shift change pending US renal and disposition. US Renal Impression: Sonographically normal left kidney. Patient would rather go back to [facility] as she states she is more comfortable there. The patient is afebrile, hemodynamically stable. Patient does seem to have bladder infection or lower UTI as opposed to upper UTI. It is likely that she has cystitis as opposed to pyelonephritis. She will be discharged to home with levaquin for seven days. - Diagnoses Provider Diagnoses: Cystitis - Provider Notifications Time Discussed With Above Provider: 17:00 Instructed by Provider To: Other - WILL CONSULT WITH PATIENT IN ED ROOM. Discharge - Sign-Out/Discharge Documenting (check all that apply): Post-Discharge Follow Up - Discharge Plan Condition: Stable Disposition: HOME Prescriptions: Levofloxacin TAB* [Levaquin TAB*] 750 mg PO DAILY #7 tab Patient Education Materials: Urinary Tract Infection in Women (ED) Referrals: Denton Gill MD [Primary Care Provider] - 2 Days Additional Instructions: RETURN TO ED WITH ANY NEW OR WORSENING SYMPTOMS. FOLLOW UP WITH PRIMARY CARE PHYSICIAN WITHIN 2 DAYS. - Billing Disposition and Condition Condition: STABLE Disposition: Home
== END 2018-06-04 23:00 | disposition home or self-care (01) ==
LOC: ED 14:35
DX: N30.90 Cystitis, unspecified without hematuria (principal); E66.01 Morbid (severe) obesity due to excess calories; F41.9 Anxiety disorder, unspecified; I51.7 Cardiomegaly; R73.9 Hyperglycemia, unspecified
CPT/HCPCS: 36415; 71045; 76775; 80053; 81003; 81015; 83605; 83880; 84484; 85025; 85610; 85730; 86140; 87040; 87077; 87086; 87186; 96361; 96374; 96375; 99284; J0696; J1885; J1940

== ENCOUNTER 2018-07-01 16:01 | Inpatient (IN) | payer BC ==
[2018-07-01 16:49] LABS: ABS Basophils 0 10^3/ul (0-0.2); ABS Eosinophils 0.3 10^3/ul (0-0.6); ABS Lymphocytes 0.9 10^3/ul (1.0-4.8); ABS Monocytes 0.4 10^3/ul (0-0.8); ABS Neutrophils 5.4 10^3/ul (1.5-7.7); ABS Nucleated RBC 0 10^3/ul; Eosinophil % 4.4 %; Hematocrit 31 % (35-47); Hemoglobin 9.8 g/dl (12.0-16.0); Lymphocyte % 13.3 %; Mean Corpuscular HGB Conc 32 g/dl (31-36); Mean Corpuscular Hemoglobin 26 pg (27-31); Mean Corpuscular Volume 82 fL (80-97); Mean Platelet Volume 6.3 fL (7.4-10.4); Nucleated Red Blood Cells % 0; Platelet Count 314 10^3/ul (150-450); Red Blood Count 3.82 10^6/ul (4.00-5.40); Red Cell Distribution Width 18 % (10.5-15)
--- NOTE | 2018-07-01 17:24 | ED ---
Skin Complaint - HPI Summary HPI Summary: Patient is a 48-year-old severely morbidly obese female presenting to the ED with left lower extremity erythema. She states she has a known cellulitis to the right hip which is weeping times approximately 2 weeks. She is currently on doxycycline for this. 2 days ago she noticed an erythema and pain to her left lower extremity which she feels now is a worsening cellulitis. She resides at [facility] is bedbound. She denies any cough, fevers, sweats, chills. She denies any congestion. She does endorse left-sided flank pain which has been present 2 weeks. She was given Cefpodoxime for the possible pyelonephritis. Ultrasound was obtained at that time. She was discharged home in good condition. She denies any other symptoms at this time. - History of Current Complaint Chief Complaint: EDExtremityLower Time Seen by Provider: 07/01/18 16:08 Stated Complaint: GENERAL Hx Obtained From: Patient Onset/Duration: Started Hours Ago Skin Exposure Onset/Duration: Hours Ago Timing: Constant Pain Intensity: 6 Pain Scale Used: 0-10 Numeric Skin Location: Other: - left leg Aggravating Symptom(s): Nothing Alleviating Symptom(s): Nothing Associated Signs & Symptoms: Negative - Additional Pertinent History Primary Care Physician: [id number] - Allergy/Home Medications Allergies/Adverse Reactions: Allergies Allergy/AdvReac Type Severity Reaction Status Date / Time No Known Drug Allergies Allergy Unknown none Verified 06/04/18 20:42 Home Medications: Home Medications Furosemide TAB* [Lasix TAB*] 40 mg PO DAILY 07/01/18 [History Confirmed 07/01/18 ] Nystatin 1 applic TOPICAL BID 07/01/18 [History Confirmed 07/01/18] busPIRone TAB* [Buspar TAB*] 7.5 mg PO BID 07/01/18 [History Confirmed 07/01/18] clonazePAM [Clonazepam] 0.5 mg PO Q12HR PRN 07/01/18 [History Confirmed 07/01/18 ] PMH/Surg Hx/FS Hx/Imm Hx Previously Healthy: Yes Endocrine/Hematology History: Denies: Hx Diabetes, Hx Thyroid Disease, Hx Anemia Cardiovascular History: Denies: Hx Hypertension Respiratory History: Denies: Hx Asthma, Hx Chronic Obstructive Pulmonary Disease (COPD), Hx Lung Cancer, Hx Pneumonia, Hx Seasonal Allergies, Hx Sleep Apnea History: Reports: Hx Acute Renal Failure Denies: Hx Dialysis, Hx Kidney Infection, Hx Kidney Stones Musculoskeletal History: Reports: Hx Arthritis - joints with pain, Hx Orthopedic Injury Denies: Hx Back Problems, Hx Bursitis, Hx Tendonitis Sensory History: Reports: Hx Contacts or Glasses Opthamlomology History: Reports: Hx Contacts or Glasses Neurological History: Denies: Hx Dementia, Hx Seizures Psychiatric History: Reports: Hx Eating Disorder, Hx Depression Denies: Hx Anxiety, Hx Attention Deficit Hyperactivity Disorder, Hx Panic Disorder, Hx Post Traumatic Stress Disorder, Hx Inpatient Treatment, Hx Schizophrenia, Hx Bipolar Disorder, Hx Suicide Attempt, Hx of Violent Episodes Against Others, Hx Substance Abuse, Other Psychiatric Issues/Disorders - Surgical History Surgery Procedure, Year, and Place: [place] teeth extraction at age 20. ORIF of R ankle 03/17/16. 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 here at [facility] [place], History Other Infectious Disease - VRE Denies: Traveled Outside the [place] in Last 30 Days - Family History Known Family History: Positive: Cardiac Disease Negative: Hypertension, Diabetes - Social History Occupation: Unemployed Lives: [facility] Alcohol Use: None Hx Substance Use: No Substance Use Type: Reports: None Hx Tobacco Use: No Smoking Status (MU): Never Smoked Tobacco Have You Smoked in the Last Year: No Review of Systems Negative: Fever, Chills, Fatigue, Skin Diaphoresis Negative: Palpitations, Chest Pain Negative: Shortness Of Breath, Cough Negative: Arthralgia, Myalgia Positive: Other - breakdown of skin folds bilaterally with cellulitis of the R hip and the L lower leg Neurological: Negative All Other Systems Reviewed And Are Negative: Yes Physical Exam Triage Information Reviewed: Yes Vital Signs On Initial Exam: Initial Vitals Temp Pulse Resp BP Pulse Ox 98.9 F 83 22 137/78 98 07/01/18 16:10 07/01/18 16:10 07/01/18 16:10 07/01/18 16:10 07/01/18 16:10 Vital Signs Reviewed: Yes Appearance: Positive: Well-Appearing, Well-Nourished - breakdown of skin folds bilaterally with cellulitis of the R hip and the L lower leg Skin: Positive: Warm, Skin Color Reflects Adequate Perfusion Head/Face: Positive: Normal Head/Face Inspection Eyes: Positive: EOMI, LINH, Conjunctiva Clear Neck: Positive: Supple, No Lymphadenopathy Respiratory/Lung Sounds: Positive: Clear to Auscultation, Breath Sounds Present Cardiovascular: Positive: RRR, Pulses are Symmetrical in both Upper and Lower Extremities Musculoskeletal: Positive: Normal, Strength/ROM Intact Neurological: Positive: Speech Normal Psychiatric: Positive: Normal, Affect/Mood Appropriate Diagnostics - Vital Signs Vital Signs Temp Pulse Resp BP Pulse Ox 07/01/18 16:10 98.9 F 83 22 137/78 98 - Laboratory Lab Results: Lab Results 07/01/18 07/01/18 Range/Units 16:41 16:41 WBC 7.0 (3.5-10.8) 10^3/ul RBC 3.82 L (4.00-5.40) 10^6/ul Hgb 9.8 L (12.0-16.0) g/dl Hct 31 L (35-47) % MCV 82 (80-97) fL MCH 26 L (27-31) pg MCHC 32 (31-36) g/dl RDW 18 H (10.5-15) % Plt Count 314 (150-450) 10^3/ul MPV 6.3 L (7.4-10.4) fL Neut % (Auto) 76.7 % Lymph % (Auto) 13.3 % Mckinley % (Auto) 5.3 % Eos % (Auto) 4.4 % Baso % (Auto) 0.3 % Absolute Neuts (auto) 5.4 (1.5-7.7) 10^3/ul Absolute Lymphs (auto) 0.9 L (1.0-4.8) 10^3/ul Absolute Monos (auto) 0.4 (0-0.8) 10^3/ul Absolute Eos (auto) 0.3 (0-0.6) 10^3/ul Absolute Basos (auto) 0 (0-0.2) 10^3/ul Absolute Nucleated RBC 0 10^3/ul Nucleated RBC % 0 ESR Pending C-Reactive Protein 144.03 H (<8.01) mg/L Result Diagrams: 07/02/18 05:32 07/02/18 05:32 Lab Statement: Any lab studies that have been ordered have been reviewed, and results considered in the medical decision making process. Course/Dx - Course Course Of Treatment: During his course of treatment, the patient's evaluated for left lower extremity erythema and warmth. This likely represents a cellulitis. However, she was sent over from a bridge to rule out a DVT. On physical examination, there is a large erythematous weeping cellulitis to the right hip in which she is currently taking doxycycline for. Today there is a left lower extremity erythema and warmth without weeping lesions or puncture or abrasion doshi to the area. This is just PTK and extending into the ankle joint. Patient endorses pain to the skin only on palpation. There is a small open skin tear in the fold under her left side body. UA obtained using an indwelling Golden catheter in which the patient requested on arrival. She states it is hard to have her have a straight catheter and we were otherwise unable to obtain a clean urine. Labs obtained. Consult from hospitalist requested. Worsening cellulitis despite antibiotic therapy. Failure of outpatient antibiotics. Discussed case with Dr. Tang who agrees to admit. - Differential Diagnoses - Skin Complaint Differential Diagnoses: Cellulitis - Diagnoses Provider Diagnoses: Cellulitis Discharge - Sign-Out/Discharge Documenting (check all that apply): Patient Departure All imaging exams completed and their final reports reviewed: Yes Patient Received Moderate/Deep Sedation with Procedure: No - Discharge Plan Condition: Stable Disposition: ADMITTED TO [facility] - Billing Disposition and Condition Condition: STABLE Disposition: Admitted to [facility]
[2018-07-01 17:33] LABS: Urine Appearance Clear; Urine Bacteria Absent (Absent); Urine Bilirubin Negative (Negative); Urine Blood Negative (Negative); Urine Color Yellow; Urine Glucose Negative (Negative); Urine Ketones Negative (Negative); Urine Nitrite Negative (Negative); Urine Protein Negative (Negative); Urine Red Blood Cell Trace(0-2/hpf) (Absent); Urine Urobilinogen Negative (Negative); Urine White Blood Cell 2+(11-20/hpf) (Absent)
[2018-07-01] MEDS ORDERED: oxyCODONE/Acetamin 5/325 MG* TAB PO PRN (20:12)
[2018-07-01] MEDS ORDERED: clonazePAM TAB(*) 1 MG PO PRN (20:12)
[2018-07-01] MEDS ORDERED: Vancomycin per Pharmacy* NOTE FOLLOW UP PRN (20:20)
[2018-07-01] MEDS: oxyCODONE/Acetamin 5/325 MG* TAB PO PRN (20:31)
[2018-07-01] MEDS ORDERED: Vancomycin(*) 2,000 MG in NS 0.9% 500 ML* 500 ML IVPB ONE (21:00)
[2018-07-01] MEDS ORDERED: busPIRone TAB* 5 MG PO SCH (21:00)
[2018-07-01] MEDS ORDERED: Cefepime 2 GM in Dextrose(*) 2 GM/50 ML BAG IV SCH (23:00)
[2018-07-01] MEDS: NS 0.9% 1000 ML** 1,000 ML IV SCH (23:25)
[2018-07-01] MEDS: Ondansetron TAB* 4 MG PO PRN (23:34)
[2018-07-01] MEDS: Heparin VIAL(*) 5000 UNITS/ML VIAL (FIVE THOUSAND) SUBCUT SCH (23:34)
[2018-07-01] MEDS: Oxybutynin TAB* 5 MG PO SCH (23:34)
[2018-07-01] MEDS: busPIRone TAB* 5 MG PO SCH (23:35)
[2018-07-01] MEDS: metroNIDAZOLE TAB* 250 MG PO SCH (23:35)
[2018-07-01] MEDS: Lactobacillus Acidophilus* 1 TAB PO SCH (23:35)
[2018-07-02] MEDS: Nystatin TOP POWDER* 15 GM BTL TOPICAL SCH ×3 (00:18→22:51)
--- NOTE | 2018-07-02 00:25 | HP ---
CC: Dr. Rhea Worley; [facility].* HISTORY AND PHYSICAL: DATE OF ADMISSION: 07/01/18 PRIMARY CARE PROVIDER: Dr. Rhea Worley at [facility]. ATTENDING PHYSICIAN: Dr. Keo Caro * (dictated by Trip Laureano NP). CHIEF COMPLAINT: Left lower leg redness, warmth, and swelling. HISTORY OF PRESENT ILLNESS: Ms. Anthony is a 48-year-old female with a past medical history significant for a right tibial fibular fracture, status post ORIF with multiple incision and drainages, super morbid obesity, chronic hypoxic respiratory failure, anemia, anxiety, chronic osteomyelitis of the right lower extremity, who states that today she noticed a left lower extremity redness, warmth, and swelling. Ms. Anthony has been at [facility] for rehabilitation since 2016 after her initial tibial fibular fracture. She has been doing well, working with physical therapy. In February, she was taken off of her suppressive doxycycline at the recommendation of Dr. Merchant with Infectious Disease. She was doing well off of the suppressive medications until the end of April, at which time she developed right lower extremity pain and redness at her previous surgical site. There was no increase in swelling, but she was having pain with weightbearing. At that time, she was placed on clindamycin for a 10-day course. She was seen in followup on . She had continued redness after receiving a 5-day course of clindamycin. At that time, she was initially started on IV meropenem and oral doxycycline with plans to discuss the case with Dr. Merchant in the morning. The recommendation was to start her on linezolid but due to the multiple drug interactions, a decision was made to place her on doxycycline 100 mg t.i.d. She completed a 10-day course of the doxycycline and the right lower extremity cellulitis resolved. Later in May, she developed left-sided flank pain and was treated for presumed left sided pyelonephritis. She had urine culture showing 1 to 10,000 E. coli and greater than 10,000 Providencia stuartii. She had blood cultures without growth. She had initially been started on Levaquin but as the Providencia was resistant to Levaquin, she was changed to Vantin 200 mg twice daily for 10 days. She completed this around 06/18. Her left-sided flank pain had improved, but she had continued to have a slight aching discomfort with an occasional sharp pain. She had a repeat urine culture showing no growth. She additionally had a KUB with no significant findings, but this was a limited study due to her size. Also to note that on 06/12, she had a renal ultrasound that was also a limited study but a negative left unilateral renal ultrasound. Ms. Anthony states that for the last few weeks, although this was not previously reported by her with my last visit at the residential with her being approximately a week ago had no drainage. She reports she developed right hip upper thigh drainage and weeping for a few weeks. She was seen by Rosalia Bauer at [facility] on Tuesday, 06/26 and was started on doxycycline for cellulitis. She has been taking the doxycycline. Today, she noted that her left top of her foot was red, warm, and swollen. She describes a feeling as though she has a sunburn. The on-call provider was called. There was concern for possible DVT. So, it was recommended that she be transferred to the emergency room for further evaluation. She denies any fevers. She reports chills a few days ago. Denies chest pain, shortness of breath, diarrhea, abdominal pain. She reports intermittent nausea, which she has been having since May. She reports last week noticing a slit in her left abdominal fold. She states she has no pain in her right foot. She continues to have some left-sided pain that she feels was improving, but slightly increased yesterday when compared to previously. She denies any urinary symptoms. She states that she has a poor appetite, but has been continuing to eat and drink at the residential. While in the emergency room, she had labs, she had no leukocytosis. She is anemic but similar to her previous baseline. She had a CRP of 144. She had a urinalysis significant for 1+ leukocyte esterase, 2+ wbc's, and hyaline cast present. She is afebrile in the emergency room, slightly tachycardic with some heart rates in the 90s. The hospitalists were asked to evaluate her for admission. PAST MEDICAL HISTORY: 1. Super morbid obesity, BMI of 110. 2. Right tib fib fracture. 3. Chronic respiratory failure, on 2 L of oxygen via nasal cannula. 4. Anemia. 5. Anxiety. 6. Right lower extremity osteomyelitis. PAST SURGICAL HISTORY: 1. Status post ORIF of the right tib fib. 2. Status post multiple I and Ds and VAC placement of the infected right ankle. FAMILY HISTORY: Father with a history of aortic stenosis, denies family history of diabetes mellitus. Paternal grandmother with a history of stomach cancer. SOCIAL HISTORY: She denies tobacco, alcohol or recreational drug use. She currently resides at [facility]. Her , Gary Anthony will be her surrogate decision maker in the event she is unable to make decisions for herself. REVIEW OF SYSTEMS: I performed an 11-point review of systems. All the pertinent positives and negatives are mentioned in the history of present illness. Remaining review of systems are negative. PHYSICAL EXAMINATION GENERAL APPEARANCE: The patient is alert, pleasant, and appears to be in no acute distress. VITAL SIGNS: Temperature 98.9, heart rate 94, respiratory rate 20, O2 sat 100% on 3 L via nasal cannula, blood pressure 131/70. HEENT: Normocephalic, atraumatic. Pupils are equal and reactive to light. Extraocular movements are intact. RESPIRATORY: There is no accessory muscle use. The lungs are clear but diminished to auscultation bilateral. CARDIOVASCULAR: Regular rate and rhythm. S1 and S2 present. There are no murmurs, rubs, or gallops heard. ABDOMEN: Soft, obese, nontender. There are bowel sounds present x4. She has a large ventral hernia. EXTREMITIES: She has chronic lymphedema to bilateral lower extremities. DP and PT pulses are 1+ and symmetric. MUSCULOSKELETAL: There is no clubbing or cyanosis noted. She exhibits good strength in all extremities. NEUROLOGIC: Alert and oriented x4. Cranial nerves II through XII are grossly intact. PSYCHOLOGIC: Calm and cooperative. SKIN: She has small superficial opening in left abdominal fold and her left upper thigh and hip. Has slight erythema and is warm to the touch. It is blanchable. Her left dorsal foot is with deep erythema. There is no open skin noted. It is warm to touch. There is no weeping or punctures or abrasions to the area. It extends from her foot to her ankle and partly upper calf. Additionally, on her right hip upper thigh area is erythematous with a weeping superficial wound from what I am able to observe. DIAGNOSTIC STUDIES/LAB DATA: CRP 144.03, white blood cell count 7.0, hemoglobin 9.8, hematocrit 31, platelet count 314. ESR is pending. She has urinalysis significant for 1+ leukocyte esterase, 2+ wbc's, and hyaline cast present. Left lower extremity venous Doppler study from today, radiologist impression: No left lower extremity deep vein thrombosis. IMPRESSION: Ms. Anthony is a 48-year-old female with past medical history significant for super morbid obesity with a BMI of 110, right lower extremity osteomyelitis, chronic respiratory failure on 2 L of oxygen, anemia, anxiety, who was being treated for a right lower extremity cellulitis at the residential. She will be admitted as an observation for cellulitis with failure of outpatient treatment. ASSESSMENT AND PLAN: 1. Cellulitis. The patient currently has 3 areas that appear to be cellulitic. This includes her right thigh, her left thigh, and her left foot. She does have from what I can visualize at least superficial opening and weeping edema with serosanguineous drainage to the right thigh and she has been treated with doxycycline at the residential. She was recently treated with Vantin for suspected pyelonephritis and placed her on vancomycin, cefepime and Flagyl to cover the possibility of staph, strep, pseudomonas, and anaerobes. If once the nursing staff were able to get her in a bed that she is able to roll , if there is a deeper wound that can be cultured we will obtain wound culture, but I will hold off on culture as I do not want to culture a superficial wound that will grow bacteria off of her skin. It is to note that she does have a history of MRSA in the past. Based upon her response to the IV antibiotics, I recommend considering consulting Infectious Disease to help us narrow her antibiotic selection. She currently is nontoxic appearing, is afebrile, has no tachypnea, just mild tachycardia. No leukocytosis. She had CRP pending at this time. We will recheck labs in the morning. 2. Left-sided flank pain. Unclear cause. I am not convinced this is related to urinary tract infection. It is more on her lateral rib cage. I recommend continuing to follow this. She will be on antibiotics that would cover urinary tract infection but if she continued to have discomfort, reconsider obtaining a renal ultrasound. She is unable to get a CT scan due to her weight. 3. Chronic lymphedema. She will be continued on her home furosemide. 4. Chronic hypoxic respiratory failure. We will continue her on her home oxygen requirement. 5. Anxiety and depression. We will continue her on as needed clonazepam, BuSpar, and Zoloft. 6. In regards to her anemia, she has chronic iron deficiency anemia. She will be continued on her oral iron supplementation. She has no reports of bleeding at this time and again H and H is near her baseline. With pernicious anemia, we will continue her vitamin B12. 7. Vitamin D deficiency. We will continue her on supplementation. 8. Super morbid obesity with BMI of 110. She is working with the package worker at [facility] on weight loss as she has gained approximately 100 pounds back in the last year. She should continue to follow closely with nutritional team when she returns to [facility]. 9. Fluids, electrolytes, and nutrition: She will be on a regular diet. 10. Code status: Full code. 11. DVT prophylaxis: She is a high risk. She will have subcu heparin. 12. Disposition: Observation. TIME SPENT: Time for this admission was approximately 60 minutes, greater than half of that was spent with the patient discussing medications, past medical history, the events leading up to her arrival today, and performing a physical examination. The case has been reviewed with the attending, Dr. Caro, who agrees with the plan of care. TRIP LAUREANO, BRANDY [id number]/[facility] #: [id number] SHANA
[2018-07-02] MEDS: oxyCODONE/Acetamin 5/325 MG* TAB PO PRN ×3 (00:42→20:33)
[2018-07-02] MEDS ORDERED: Vancomycin(*) 1,000 MG in NS 0.9% 250 ML* 250 ML IVPB SCH (04:00)
[2018-07-02 05:47] LABS: ABS Basophils 0 10^3/ul (0-0.2); ABS Eosinophils 0.4 10^3/ul (0-0.6); ABS Lymphocytes 1.1 10^3/ul (1.0-4.8); ABS Monocytes 0.4 10^3/ul (0-0.8); ABS Neutrophils 5.3 10^3/ul (1.5-7.7); ABS Nucleated RBC 0 10^3/ul; Eosinophil % 5.8 %; Hematocrit 30 % (35-47); Hemoglobin 9.6 g/dl (12.0-16.0); Lymphocyte % 14.7 %; Mean Corpuscular HGB Conc 32 g/dl (31-36); Mean Corpuscular Hemoglobin 26 pg (27-31); Mean Corpuscular Volume 82 fL (80-97); Mean Platelet Volume 6.3 fL (7.4-10.4); Nucleated Red Blood Cells % 0.1; Platelet Count 313 10^3/ul (150-450); Red Blood Count 3.71 10^6/ul (4.00-5.40); Red Cell Distribution Width 18 % (10.5-15); White Blood Count 7.2 10^3/ul (3.5-10.8)
[2018-07-02 06:10] LABS: BUN/Creatinine Ratio 16.9 (8-20); Calcium 8.8 mg/dL (8.6-10.3); EGFR African American 81.9 (>60); EGFR Non-African American 67.7 (>60); Potassium 3.4 mmol/L (3.5-5.0)
[2018-07-02] MEDS: Heparin VIAL(*) 5000 UNITS/ML VIAL (FIVE THOUSAND) SUBCUT SCH ×3 (06:21→22:47)
[2018-07-02] MEDS ORDERED: Furosemide TAB* 40 MG PO SCH (09:00)
[2018-07-02] MEDS: Vancomycin(*) 1,000 MG in NS 0.9% 250 ML* 250 ML IVPB SCH ×3 (09:07→19:44)
[2018-07-02] MEDS: busPIRone TAB* 5 MG PO SCH ×2 (09:08→22:45)
[2018-07-02] MEDS: Lactobacillus Acidophilus* 1 TAB PO SCH ×2 (09:10→22:46)
[2018-07-02] MEDS: Sertraline* 100 MG TAB PO SCH (09:10)
[2018-07-02] MEDS: Cyanocobalamin TAB* 500 MCG PO SCH (09:10)
[2018-07-02] MEDS: metroNIDAZOLE TAB* 250 MG PO SCH ×2 (09:10→22:46)
[2018-07-02] MEDS: Oxybutynin TAB* 5 MG PO SCH ×3 (09:10→22:46)
[2018-07-02] MEDS: Cholecalciferol TAB* 1000 UNITS PO SCH (09:10)
[2018-07-02] MEDS: Ferrous Sulfate TAB* 325 MG PO SCH (09:10)
[2018-07-02] MEDS: Multivitamins/Minerals TAB PO SCH (09:10)
[2018-07-02] MEDS: NS 0.9% 1000 ML** 1,000 ML IV SCH (14:11)
[2018-07-02] MEDS: Ondansetron TAB* 4 MG PO PRN (14:18)
--- NOTE | 2018-07-02 15:15 | PN ---
Subjective Interval History: Afebrile, no acute events has spot on left flank that never resolved tenderness despite pyelo treatment. erythema retracting somewhat. right abdominal/hip skin fold weeping/oozing for few weeks. Objective Active Medications: Buspirone HCl (Buspar Tab*) 7.5 mg PO Q12HR [facility] Last Admin: 07/02/18 09:08 Dose: 7.5 mg Cholecalciferol (Vitamin D Tab*) 2,000 units PO DAILY [facility] Last Admin: 07/02/18 09:10 Dose: 2,000 units Clonazepam (Klonopin Tab(*)) 0.5 mg PO Q12HR PRN PRN Reason: ANXIETY Cyanocobalamin (Vitamin B12 Tab*) 1,000 mcg PO DAILY [facility] Last Admin: 07/02/18 09:10 Dose: 1,000 mcg Ferrous Sulfate (Ferrous Sulfate Tab*) 325 mg PO DAILY [facility] Last Admin: 07/02/18 09:10 Dose: 325 mg Furosemide (Lasix Tab*) 40 mg PO DAILY [facility] Last Admin: 07/02/18 09:10 Dose: 40 mg Heparin Sodium (Porcine) (Heparin Vial(*)) 5,000 units SUBCUT Q8HR [facility] Last Admin: 07/02/18 14:11 Dose: 5,000 units Sodium Chloride (Ns 0.9% 1000 Ml) 1,000 mls @ 100 mls/hr IV PER RATE [facility] Last Admin: 07/02/18 14:11 Dose: 100 mls/hr Cefepime HCl (Maxipime 2 Gm In Dextrose Duplex (*)) 2 gm in 50 mls @ 100 mls/ hr IV 0330,1530 [facility] Vancomycin HCl 1,000 mg/ (Sodium Chloride) 250 mls @ 166.667 mls/hr IVPB 0200, 0800,1400,2000 [facility] Last Admin: 07/02/18 14:11 Dose: 166.667 mls/hr Lactobacillus Rhamnosus (Lactobacillus Acidophilus*) 1 tab PO BID [facility] Last Admin: 07/02/18 09:10 Dose: 1 tab Metronidazole (Flagyl Tab*) 500 mg PO BID [facility] Last Admin: 07/02/18 09:10 Dose: 500 mg Multivitamins/Minerals (Theragran/Minerals Tab*) 1 tab PO DAILY [facility] Last Admin: 07/02/18 09:10 Dose: 1 tab Nystatin (Nystatin Top Powder*) 1 applic TOPICAL BID [facility] Last Admin: 07/02/18 11:14 Dose: 1 applic Ondansetron HCl (Zofran Tab*) 4 mg PO DAILY PRN PRN Reason: NAUSEA Last Admin: 07/02/18 14:18 Dose: 4 mg Oxybutynin Chloride (Ditropan Tab*) 5 mg PO TID [facility] Last Admin: 07/02/18 14:11 Dose: 5 mg Oxycodone/Acetaminophen (Percocet 5/325 Tab*) 1 tab PO Q4H PRN PRN Reason: PAIN - MILD TO MODERATE Oxycodone/Acetaminophen (Percocet 5/325 Tab*) 2 tab PO Q4H PRN PRN Reason: PAIN - MODERATE TO SEVERE Last Admin: 07/02/18 09:10 Dose: 2 tab Pharmacy Consult (Vancomycin Per Pharmacy*) 1 note FOLLOW UP . PRN PRN Reason: PER PROTOCOL Pharmacy Profile Note (Vancomycin Trough Check) 1 note FOLLOW UP ONCE ONE Stop: 07/03/18 07:31 Sertraline HCl (Zoloft*) 200 mg PO DAILY [facility] Last Admin: 07/02/18 09:10 Dose: 200 mg Vital Signs - 8 hr 07/02/18 07/02/18 07/02/18 07:54 08:46 08:47 Temperature 98.5 F 98.5 F Pulse Rate 76 76 Respiratory 16 16 16 Rate Blood Pressure 129/56 129/56 (mmHg) O2 Sat by Pulse 99 99 Oximetry 07/02/18 07/02/18 07/02/18 09:10 11:55 12:43 Temperature 98.0 F Pulse Rate 71 Respiratory 18 16 18 Rate Blood Pressure 137/52 (mmHg) O2 Sat by Pulse 98 Oximetry Oxygen Devices in Use Now: Nasal Cannula Appearance: NAD, supermorbid obesity Eyes: No Scleral Icterus Ears/Nose/Mouth/Throat: NL Teeth, Lips, Gums Respiratory: - - anteriorly CTAB but limited by body habitus Abdominal: NL Sounds; No Tenderness; No Distention, - - super morbid obesity Extremities: - - I suspect component of edema is contributing to her compartmentalized skin fold islands Skin: - - erythema and warmth to left lower calf extending to lateral and superior foot (seemingly improving). right thigh/hip skin fold with weeping, sores, erythema. Neurological: Alert and Oriented x 3 Nutrition: Taking PO's Result Diagrams: 07/02/18 05:32 07/02/18 05:32 Additional Lab and Data: Laboratory Results - last 24 hr 07/01/18 07/02/18 07/02/18 17:55 05:32 05:32 WBC 7.2 RBC 3.71 L Hgb 9.6 L Hct 30 L MCV 82 MCH 26 L MCHC 32 RDW 18 H Plt Count 313 MPV 6.3 L Neut % (Auto) 73.3 Lymph % (Auto) 14.7 Dougherty % (Auto) 5.8 Eos % (Auto) 5.8 Baso % (Auto) 0.4 Absolute Neuts (auto) 5.3 Absolute Lymphs (auto) 1.1 Absolute Monos (auto) 0.4 Absolute Eos (auto) 0.4 Absolute Basos (auto) 0 Absolute Nucleated RBC 0 Nucleated RBC % 0.1 ESR 69 H Sodium 139 Potassium 3.4 L Chloride 100 L Carbon Dioxide 33 H Anion Gap 6 BUN 15 Creatinine 0.89 Est GFR ( Amer) 81.9 Est GFR (Non-Af Amer) 67.7 BUN/Creatinine Ratio 16.9 Glucose 103 H Calcium 8.8 Microbiology and Other Data: Microbiology 07/01/18 16:36 Blood Venous Aerobic Blood Culture - Preliminary No Growth Day 1 07/01/18 16:36 Blood Venous Anaerobic Blood Culture - Preliminary No Growth Day 1 07/01/18 16:41 Blood Venous Aerobic Blood Culture - Preliminary No Growth Day 1 07/01/18 16:41 Blood Venous Anaerobic Blood Culture - Preliminary No Growth Day 1 07/01/18 23:42 Thigh Right Gram Stain - Final 07/01/18 23:42 Nasal Nasal Screen MRSA (PCR) - Final Mrsa Detected Assess/Plan/Problems-Billing Assessment: 48 yo female PMH super morbid obesity BMI 110, chronic OM, chronic hypoxic respiratory failure likely secondary to obesity hypoventilation and diastolic CHF, anxiety, anemia p/w left thigh to foot cellulitis and weeping right hip cellulitis. On vanc, cefepime, flagyl. - Patient Problems (1) Cellulitis Current Visit: No Status: Acute Priority: High Onset Date: 12/12/13 Code (s): L03.90 - CELLULITIS, UNSPECIFIED SNOMED Code(s): 359613389 Comment: Continue cefepime, vancomycin and flagyl for now ID consult tomorrow. (2) Anasarca Current Visit: No Status: Acute Code(s): R60.1 - GENERALIZED EDEMA SNOMED Code(s): 839409726 Comment: Last ECHO in 2016 was extremely limited. pEF. Suspect some diastolic dysfunction component. Increased diuresis to 40mg IV BID from home 40mg po daily. daily weights, strict ios. (3) Anxiety Current Visit: No Status: Acute Priority: High Code(s): F41.9 - ANXIETY DISORDER, UNSPECIFIED SNOMED Code(s): 51123839 Comment: - Continue sertraline and klonopin. Supportive care. (4) DVT prophylaxis Current Visit: No Status: Acute Priority: High Code(s): WRK4620 - SNOMED Code(s): 070694545 Comment: SQ Heparin. (5) Anemia Current Visit: No Status: Chronic Code(s): D64.9 - ANEMIA, UNSPECIFIED SNOMED Code(s): 174667506 Comment: c/w iron supplimentation (6) Full code status Current Visit: No Status: Chronic Priority: High Code(s): Z78.9 - OTHER SPECIFIED HEALTH STATUS SNOMED Code(s): 055688911 (7) Morbid obesity with BMI of 70 and over, adult Current Visit: No Status: Chronic Priority: High Code(s): E66.9 - OBESITY , UNSPECIFIED; Z68.45 - BODY MASS INDEX (BMI) 70 OR GREATER, ADULT SNOMED Code (s): 462160915 Comment: In 23 months weight has increased ~140 lbs. appreciate nutrition assessment concerned that some of this is excess edema/anasarca and have increaed diuresis. Status and Disposition: medicine inpatient.
[2018-07-02] MEDS: Cefepime 2 GM in Dextrose(*) 2 GM/50 ML BAG IV SCH (15:57)
[2018-07-02] MEDS ORDERED: Ondansetron INJ* 2 MG/ML VIAL IV PRN (19:53)
[2018-07-03] MEDS: Vancomycin(*) 1,000 MG in NS 0.9% 250 ML* 250 ML IVPB SCH ×4 (02:35→20:18)
[2018-07-03] MEDS: Cefepime 2 GM in Dextrose(*) 2 GM/50 ML BAG IV SCH ×2 (04:46→15:51)
[2018-07-03] MEDS: Heparin VIAL(*) 5000 UNITS/ML VIAL (FIVE THOUSAND) SUBCUT SCH ×3 (05:07→21:21)
[2018-07-03] MEDS: NS 0.9% 1000 ML** 1,000 ML IV SCH ×2 (06:37→15:51)
[2018-07-03] MEDS ORDERED: Vancomycin Trough Check NOTE FOLLOW UP ONE (07:30)
[2018-07-03] MEDS: Cholecalciferol TAB* 1000 UNITS PO SCH (09:38)
[2018-07-03] MEDS: Cyanocobalamin TAB* 500 MCG PO SCH (09:39)
[2018-07-03] MEDS: clonazePAM TAB(*) 0.5 MG PO PRN (09:39)
[2018-07-03] MEDS: Oxybutynin TAB* 5 MG PO SCH ×3 (09:39→21:19)
[2018-07-03] MEDS: Ferrous Sulfate TAB* 325 MG PO SCH (09:39)
[2018-07-03] MEDS: Multivitamins/Minerals TAB PO SCH (09:39)
[2018-07-03] MEDS: Lactobacillus Acidophilus* 1 TAB PO SCH ×2 (09:39→21:19)
[2018-07-03] MEDS: metroNIDAZOLE TAB* 250 MG PO SCH ×2 (09:39→21:19)
[2018-07-03] MEDS: Sertraline* 100 MG TAB PO SCH (09:39)
[2018-07-03] MEDS: oxyCODONE/Acetamin 5/325 MG* TAB PO PRN ×3 (09:40→21:20)
[2018-07-03] MEDS: Furosemide IV* 10 MG/ML VIAL (40 MG) IV SCH ×2 (09:50→15:52)
[2018-07-03] MEDS: Nystatin TOP POWDER* 15 GM BTL TOPICAL SCH ×2 (09:53→23:09)
[2018-07-03] MEDS: Ondansetron TAB* 4 MG PO PRN ×2 (10:37→21:19)
[2018-07-03] MEDS: busPIRone TAB* 5 MG PO SCH ×2 (10:37→23:02)
--- NOTE | 2018-07-03 12:43 | CONS ---
CONSULTATION REPORT: DATE OF CONSULT: 07/03/18 REQUESTING PHYSICIAN: Dr. Teague. CONSULTING SERVICE: Infectious Disease. REASON FOR CONSULTATION: Flank cellulitis on the right. IMPRESSION: 1. Right flank cellulitis in an area of dependent lymphedema on an area of lateral pannus. A superficial swab is growing pseudomonas in the past, it is growing methicillin-resistant Staphylococcus aureus there as well. The gram- stain was negative. Blood cultures are negative. 2. Super morbid obesity. 3. History of right ankle internal fixation, complicated by wound infection and suppressive doxycycline. 4. Left lower extremity cellulitis. RECOMMENDATION: I agree with cefepime, vancomycin, and Flagyl. We will await the final culture information and decide on a final regimen. I do not know if there is much we can do for the dependent lymphedema on the right flank that might help resolve this sooner. HISTORY OF PRESENT ILLNESS: This is a 48-year-old woman with super morbid obesity, has been at [facility] and recently developed some chills, decreased appetite, and found to have right flank redness in the setting of lymphedema and then some right lower extremity redness and tenderness. She has had no inflammation, swelling, redness around her right ankle incision. She stayed on suppressive doxycycline and tolerating that well. Because of her flank changes, she came to the hospital. White count was 7, sed rate was 70, CRP 144. She was started on vancomycin, cefepime, and Flagyl and tolerating that well. There is tenderness in the left leg and right flank are slowly improved though not gone. PAST MEDICAL HISTORY: 1. Super morbid obesity. 2. Right ankle fracture status post open reduction and internal fixation. 3. Chronic respiratory failure, obesity hypoventilation syndrome. 4. Anemia. 5. Anxiety. 6. Right leg recurrent infection. MEDICATIONS: 1. BuSpar. 2. Cefepime 2 g every 12 hours. 3. Cholecalciferol. 4. Klonopin. 5. Ferrous sulfate. 6. Lasix. 7. Flagyl 500 mg by mouth twice daily. 8. Multivitamin. 9. Zofran. 10. Oxybutynin. 12. Sertraline. 13. Vancomycin 1 g every 6 hours. ALLERGIES: No known drug allergies. FAMILY HISTORY: No recurrent infections. SOCIAL HISTORY: She lives at [facility]. She is a nonsmoker. No injection drugs. REVIEW OF SYSTEMS: All negative except as noted above in the history of present illness, 14-point review. PHYSICAL EXAM: Vital Signs: Temperature 37, heart rate 60, respiratory rate 14 , blood pressure 124/78, oxygen saturation 100% on room air. In general, she is awake, alert, and not in distress. Neurologic: She is oriented x3. Follows all commands. HEENT: There is no conjunctival hemorrhage. Oropharynx without lesions. Neck is supple without mass. Heart is regular rate and rhythm without murmurs, rubs, or gallops. Lungs are clear to auscultation bilaterally. Abdomen: Soft. There is a right lateral pannus with lymphedema, induration, mild erythema. Left leg below the knee, above the ankle mild erythema and tenderness. There is no fluctuance. LABORATORY DATA: Creatinine 0.8. White blood cell count 7, hemoglobin 9, platelets 313. Urinalysis, leukocyte esterase, no white cells or red cells. Please see impressions and recommendations outlined above. Thanks for asking me to see Ms. Anthony in consultation. [id number]/[facility] #: [id number] [facility]
--- NOTE | 2018-07-03 18:45 | PN ---
Subjective Date of Service: 07/03/18 Interval History: PSDA from right thigh culture. Best Bravo on UCx Afebrile, no acute events overnight no BM since admission. Has not been out of bed. Usually at [facility] would walk with physical therapy though does not have "her" (likely specialized) rolling walker Objective Active Medications: Buspirone HCl (Buspar Tab*) 7.5 mg PO Q12HR [facility] Last Admin: 07/03/18 10:37 Dose: 7.5 mg Cholecalciferol (Vitamin D Tab*) 2,000 units PO DAILY [facility] Last Admin: 07/03/18 09:38 Dose: 2,000 units Clonazepam (Klonopin Tab(*)) 0.5 mg PO Q12HR PRN PRN Reason: ANXIETY Last Admin: 07/03/18 09:39 Dose: 0.5 mg Cyanocobalamin (Vitamin B12 Tab*) 1,000 mcg PO DAILY [facility] Last Admin: 07/03/18 09:39 Dose: 1,000 mcg Ferrous Sulfate (Ferrous Sulfate Tab*) 325 mg PO DAILY [facility] Last Admin: 07/03/18 09:39 Dose: 325 mg Furosemide (Lasix Iv*) 40 mg IV 0800,1500 [facility] Last Admin: 07/03/18 15:52 Dose: 40 mg Furosemide (Lasix Iv*) 40 mg IV ONCE ONE Stop: 07/03/18 21:01 Heparin Sodium (Porcine) (Heparin Vial(*)) 5,000 units SUBCUT Q8HR [facility] Last Admin: 07/03/18 14:37 Dose: 5,000 units Cefepime HCl (Maxipime 2 Gm In Dextrose Duplex (*)) 2 gm in 50 mls @ 100 mls/ hr IV 0330,1530 [facility] Last Admin: 07/03/18 15:51 Dose: 100 mls/hr Vancomycin HCl 1,000 mg/ (Sodium Chloride) 250 mls @ 166.667 mls/hr IVPB 0200, 0800,1400,2000 [facility] Last Admin: 07/03/18 16:59 Dose: 166.667 mls/hr Lactobacillus Rhamnosus (Lactobacillus Acidophilus*) 1 tab PO BID [facility] Last Admin: 07/03/18 09:39 Dose: 1 tab Metronidazole (Flagyl Tab*) 500 mg PO BID [facility] Last Admin: 07/03/18 09:39 Dose: 500 mg Multivitamins/Minerals (Theragran/Minerals Tab*) 1 tab PO DAILY [facility] Last Admin: 07/03/18 09:39 Dose: 1 tab Nystatin (Nystatin Top Powder*) 1 applic TOPICAL BID [facility] Last Admin: 07/03/18 09:53 Dose: Not Given Ondansetron HCl (Zofran Inj*) 4 mg IV Q6H PRN PRN Reason: NAUSEA Last Admin: 07/02/18 20:33 Dose: 4 mg Ondansetron HCl (Zofran Tab*) 4 mg PO Q6H PRN PRN Reason: NAUSEA Last Admin: 07/03/18 10:37 Dose: 4 mg Oxybutynin Chloride (Ditropan Tab*) 5 mg PO TID [facility] Last Admin: 07/03/18 14:37 Dose: 5 mg Oxycodone/Acetaminophen (Percocet 5/325 Tab*) 1 tab PO Q4H PRN PRN Reason: PAIN - MILD TO MODERATE Oxycodone/Acetaminophen (Percocet 5/325 Tab*) 2 tab PO Q4H PRN PRN Reason: PAIN - MODERATE TO SEVERE Last Admin: 07/03/18 14:37 Dose: 2 tab Pharmacy Consult (Vancomycin Per Pharmacy*) 1 note FOLLOW UP . PRN PRN Reason: PER PROTOCOL Pharmacy Profile Note (Vancomycin Trough Check) 1 note FOLLOW UP ONCE ONE Stop: 07/05/18 07:31 Sertraline HCl (Zoloft*) 200 mg PO DAILY [facility] Last Admin: 07/03/18 09:39 Dose: 200 mg Vital Signs - 8 hr 07/03/18 07/03/18 07/03/18 11:25 11:45 12:00 Temperature 98.3 F Pulse Rate 74 Respiratory 20 16 16 Rate Blood Pressure 133/52 (mmHg) O2 Sat by Pulse 97 Oximetry 07/03/18 07/03/18 14:37 15:45 Temperature 97.9 F Pulse Rate 68 Respiratory 16 16 Rate Blood Pressure 110/58 (mmHg) O2 Sat by Pulse 99 Oximetry Oxygen Devices in Use Now: Nasal Cannula Appearance: NAD, chronically ill appearing. Eyes: No Scleral Icterus Ears/Nose/Mouth/Throat: NL Teeth, Lips, Gums Neck: NL Appearance and Movements; NL JVP Respiratory: - - anteriorly CTAB but very limited exam by body habitus. Cardiovascular: NL Sounds; No Murmurs; No JVD, RRR Abdominal: NL Sounds; No Tenderness; No Distention, No Hepatosplenomegaly Extremities: - - pitting edema/anisarca in body folds. Skin: - - erythema and warmth in left lower extremity down to left foot and at right thigh fold) Neurological: Alert and Oriented x 3, NL Sensation, NL Muscle Strength and Tone Nutrition: Taking PO's Result Diagrams: 07/02/18 05:32 07/02/18 05:32 Additional Lab and Data: Laboratory Results - last 24 hr 07/03/18 07/03/18 07:49 07:49 B-Natriuretic Peptide 99 Vancomycin Trough 15.8 Microbiology and Other Data: Microbiology 07/01/18 16:36 Blood Venous Aerobic Blood Culture - Preliminary No Growth Day 2 07/01/18 16:36 Blood Venous Anaerobic Blood Culture - Preliminary No Growth Day 2 07/01/18 16:41 Blood Venous Aerobic Blood Culture - Preliminary No Growth Day 2 07/01/18 16:41 Blood Venous Anaerobic Blood Culture - Preliminary No Growth Day 2 07/01/18 23:42 Thigh Right Gram Stain - Final 07/01/18 23:42 Thigh Right Wound Culture - Preliminary Pseudomonas Aeruginosa 07/01/18 17:24 Urine Urine Culture - Final Providencia Stuartii 07/01/18 23:42 Nasal Nasal Screen MRSA (PCR) - Final Mrsa Detected Assess/Plan/Problems-Billing Assessment: 48 yo female H super morbid obesity BMI 110, chronic OM, chronic hypoxic respiratory failure likely secondary to obesity hypoventilation and diastolic CHF, anxiety, anemia p/w left thigh to foot cellulitis and weeping right hip cellulitis. On vanc, cefepime, flagyl. PSDA on right flank wound. - Patient Problems (1) Cellulitis Current Visit: No Status: Acute Priority: High Onset Date: 12/12/13 Code (s): L03.90 - CELLULITIS, UNSPECIFIED SNOMED Code(s): 460342989 Comment: Continue cefepime, vancomycin and flagyl for now appreciate ID recs. midline placed. (2) Anasarca Current Visit: No Status: Acute Code(s): R60.1 - GENERALIZED EDEMA SNOMED Code(s): 630184692 Comment: Last ECHO in 2015 was extremely limited. pEF. Suspect some diastolic dysfunction component. Increased diuresis to 40mg IV BID from home 40mg po daily. daily weights, strict ios. BNP 99 up from 58 on 06/04. (3) Anxiety Current Visit: No Status: Acute Priority: High Code(s): F41.9 - ANXIETY DISORDER, UNSPECIFIED SNOMED Code(s): 17114174 Comment: - Continue sertraline and klonopin. Supportive care. (4) DVT prophylaxis Current Visit: No Status: Acute Priority: High Code(s): CWT4595 - SNOMED Code(s): 364890325 Comment: SQ Heparin. (5) Anemia Current Visit: No Status: Chronic Code(s): D64.9 - ANEMIA, UNSPECIFIED SNOMED Code(s): 271215386 Comment: c/w iron supplimentation (6) Full code status Current Visit: No Status: Chronic Priority: High Code(s): Z78.9 - OTHER SPECIFIED HEALTH STATUS SNOMED Code(s): 369032016 (7) Morbid obesity with BMI of 70 and over, adult Current Visit: No Status: Chronic Priority: High Code(s): E66.9 - OBESITY , UNSPECIFIED; Z68.45 - BODY MASS INDEX (BMI) 70 OR GREATER, ADULT SNOMED Code (s): 832427574 Comment: In 23 months weight has increased ~140 lbs. appreciate nutrition assessment concerned that some of this is excess edema/anasarca and have increaed diuresis. Status and Disposition: medicine inpatient. Back to [facility] when stable.
[2018-07-03] MEDS ORDERED: Polyethylene Glycol 3350* 17 GM PACKET PO PRN (19:10)
[2018-07-03] MEDS ORDERED: Furosemide IV* 10 MG/ML VIAL (40 MG) IV ONE (21:00)
[2018-07-03] MEDS: Docusate CAP* 100 MG PO SCH (21:19)
[2018-07-03] MEDS: Senna TAB PO SCH (21:20)
[2018-07-04] MEDS: Vancomycin(*) 1,000 MG in NS 0.9% 250 ML* 250 ML IVPB SCH ×2 (02:00→08:22)
[2018-07-04] MEDS: Cefepime 2 GM in Dextrose(*) 2 GM/50 ML BAG IV SCH ×2 (03:57→15:25)
[2018-07-04] MEDS: Heparin VIAL(*) 5000 UNITS/ML VIAL (FIVE THOUSAND) SUBCUT SCH ×3 (06:25→21:41)
[2018-07-04] MEDS: Furosemide IV* 10 MG/ML VIAL (40 MG) IV SCH ×2 (08:22→15:24)
[2018-07-04] MEDS: Multivitamins/Minerals TAB PO SCH (08:27)
[2018-07-04] MEDS: Ferrous Sulfate TAB* 325 MG PO SCH (08:27)
[2018-07-04] MEDS: Cholecalciferol TAB* 1000 UNITS PO SCH (08:27)
[2018-07-04] MEDS: Cyanocobalamin TAB* 500 MCG PO SCH (08:27)
[2018-07-04] MEDS: metroNIDAZOLE TAB* 250 MG PO SCH (08:27)
[2018-07-04] MEDS: Oxybutynin TAB* 5 MG PO SCH ×3 (08:27→21:40)
[2018-07-04] MEDS: Sertraline* 100 MG TAB PO SCH (08:27)
[2018-07-04] MEDS: oxyCODONE/Acetamin 5/325 MG* TAB PO PRN ×3 (08:28→21:40)
[2018-07-04] MEDS: Ondansetron TAB* 4 MG PO PRN ×2 (08:28→21:40)
[2018-07-04] MEDS: Lactobacillus Acidophilus* 1 TAB PO SCH ×2 (08:28→21:40)
[2018-07-04] MEDS: Docusate CAP* 100 MG PO SCH ×2 (08:28→21:40)
[2018-07-04] MEDS: clonazePAM TAB(*) 0.5 MG PO PRN ×2 (08:28→21:41)
[2018-07-04] MEDS: Senna TAB PO SCH (08:35)
[2018-07-04] MEDS: Nystatin TOP POWDER* 15 GM BTL TOPICAL SCH ×2 (10:29→23:28)
[2018-07-04] MEDS: busPIRone TAB* 5 MG PO SCH ×2 (10:32→21:39)
--- NOTE | 2018-07-04 15:36 | PN ---
Progress Note - Progress Note Date of Service: 07/04/18 SOAP: Subjective: CC: cellulitis HPI: 48 year old woman with morbid obesity recently with malaise and chills. Right flank redness and pain. Left leg redness and pain, both areas improving. No fever, rash, or diarrhea. Objective: Vital Signs Temp 36.9 C 07/04/18 04:05 Pulse 69 07/04/18 12:00 Resp 16 07/04/18 14:08 BP 138/60 07/04/18 12:00 Pulse Ox 95 07/04/18 12:00 Intake & Output 07/03/18 07/04/18 07/04/18 18:59 06:59 18:59 Intake Total 600 2793 1108 Output Total 425 6090 2500 Balance 765 -5224 -1590 Intake: IV Fluids 1038 ABX - CEFEPIME 55 ABX - VANCOMYCIN 555 NS (0.9%) 428 IVPB 275 268 ABX - VANCOMYCIN 275 268 Oral 600 1480 840 Output: Golden 425 6090 2500 Other: # Bowel Movements 0 Gen:awake, no distress HEENT: no thrush Heart:RRR no murmur Lungs:CTA BL Abd:+BS NTND soft Skin: Right flank panus erythema and superficial ulceration; left lower leg mild erythema Microbiology 07/01/18 23:42 Gram Stain - Final Thigh Right Wound Culture - Preliminary Pseudomonas Aeruginosa 07/01/18 16:36 Aerobic Blood Culture - Preliminary Blood Venous No Growth Day 2 Anaerobic Blood Culture - Preliminary No Growth Day 2 07/01/18 16:41 Aerobic Blood Culture - Preliminary Blood Venous No Growth Day 2 Anaerobic Blood Culture - Preliminary No Growth Day 2 Assessment: 1. Right flank cellulitis and left leg cellulitis; improving 2. super morbid obesity 3. hx R ankle ORIF and recurrent infection on mcfp suppression Plan: 1. DC vancomycin and flagyl; continue cefepime awaiting Pseudomonas susceptibility report. 2. To restart doxycycline after current course abx completed
--- NOTE | 2018-07-04 16:37 | PN ---
Subjective Date of Service: 07/04/18 Interval History: Erythema, Pain warmth all much improved. even left flank pain improved Net negative 3.1L afebrile, no acute events. Objective Active Medications: Buspirone HCl (Buspar Tab*) 7.5 mg PO Q12HR [facility] Last Admin: 07/04/18 10:32 Dose: 7.5 mg Cholecalciferol (Vitamin D Tab*) 2,000 units PO DAILY [facility] Last Admin: 07/04/18 08:27 Dose: 2,000 units Clonazepam (Klonopin Tab(*)) 0.5 mg PO Q12HR PRN PRN Reason: ANXIETY Last Admin: 07/04/18 08:28 Dose: 0.5 mg Cyanocobalamin (Vitamin B12 Tab*) 1,000 mcg PO DAILY [facility] Last Admin: 07/04/18 08:27 Dose: 1,000 mcg Docusate Sodium (Colace Cap*) 100 mg PO BID [facility] Last Admin: 07/04/18 08:28 Dose: 100 mg Ferrous Sulfate (Ferrous Sulfate Tab*) 325 mg PO DAILY [facility] Last Admin: 07/04/18 08:27 Dose: 325 mg Furosemide (Lasix Iv*) 40 mg IV 0800,1500 [facility] Last Admin: 07/04/18 15:24 Dose: 40 mg Heparin Sodium (Porcine) (Heparin Vial(*)) 5,000 units SUBCUT Q8HR [facility] Last Admin: 07/04/18 14:09 Dose: 5,000 units Heparin Sodium (Porcine) (Heparin Flush Picc/Ml/Cvc(*)) 1 - 3 ml FLUSH 0600, 1800 [facility]; Protocol Last Admin: 07/04/18 12:09 Dose: 1 ml Cefepime HCl (Maxipime 2 Gm In Dextrose Duplex (*)) 2 gm in 50 mls @ 100 mls/ hr IV 0330,1530 [facility] Last Admin: 07/04/18 15:25 Dose: 100 mls/hr Lactobacillus Rhamnosus (Lactobacillus Acidophilus*) 1 tab PO BID [facility] Last Admin: 07/04/18 08:28 Dose: 1 tab Multivitamins/Minerals (Theragran/Minerals Tab*) 1 tab PO DAILY [facility] Last Admin: 07/04/18 08:27 Dose: 1 tab Nystatin (Nystatin Top Powder*) 1 applic TOPICAL BID [facility] Last Admin: 07/04/18 10:29 Dose: 1 applic Ondansetron HCl (Zofran Inj*) 4 mg IV Q6H PRN PRN Reason: NAUSEA Last Admin: 07/02/18 20:33 Dose: 4 mg Ondansetron HCl (Zofran Tab*) 4 mg PO Q6H PRN PRN Reason: NAUSEA Last Admin: 07/04/18 08:28 Dose: 4 mg Oxybutynin Chloride (Ditropan Tab*) 5 mg PO TID [facility] Last Admin: 07/04/18 14:09 Dose: 5 mg Oxycodone/Acetaminophen (Percocet 5/325 Tab*) 1 tab PO Q4H PRN PRN Reason: PAIN - MILD TO MODERATE Oxycodone/Acetaminophen (Percocet 5/325 Tab*) 2 tab PO Q4H PRN PRN Reason: PAIN - MODERATE TO SEVERE Last Admin: 07/04/18 14:08 Dose: 2 tab Pharmacy Profile Note (Vancomycin Trough Check) 1 note FOLLOW UP ONCE ONE Stop: 07/05/18 07:31 Polyethylene Glycol/Electrolytes (Miralax*) 17 gm PO DAILY PRN PRN Reason: CONSTIPATION Senna (Senokot Tab*) 1 tab PO DAILY [facility] Last Admin: 07/04/18 08:35 Dose: Not Given Sertraline HCl (Zoloft*) 200 mg PO DAILY [facility] Last Admin: 07/04/18 08:27 Dose: 200 mg Vital Signs - 8 hr 07/04/18 07/04/18 07/04/18 10:40 11:57 12:00 Pulse Rate 69 Respiratory 20 20 Rate Blood Pressure 138/60 (mmHg) O2 Sat by Pulse 95 Oximetry 07/04/18 07/04/18 14:08 16:21 Pulse Rate 70 Respiratory 16 18 Rate Blood Pressure 114/56 (mmHg) O2 Sat by Pulse 95 Oximetry Oxygen Devices in Use Now: Nasal Cannula Appearance: NAD, morbidly obese. Eyes: No Scleral Icterus, PERRLA Neck: NL Appearance and Movements; NL JVP, Trachea Midline Respiratory: - - anteriorly clear to auscultation but limited by body habitus. Cardiovascular: NL Sounds; No Murmurs; No JVD, RRR Abdominal: NL Sounds; No Tenderness; No Distention, No Hepatosplenomegaly Extremities: - - anisarca Skin: - - erythema, weeping on right thigh slightly improved. left lower leg to foot greatly improved. Neurological: Alert and Oriented x 3 Nutrition: Taking PO's Result Diagrams: 07/02/18 05:32 07/02/18 05:32 Microbiology and Other Data: Microbiology 07/01/18 23:42 Thigh Right Gram Stain - Final 07/01/18 23:42 Thigh Right Wound Culture - Preliminary Pseudomonas Aeruginosa 07/01/18 16:36 Blood Venous Aerobic Blood Culture - Preliminary No Growth Day 2 07/01/18 16:36 Blood Venous Anaerobic Blood Culture - Preliminary No Growth Day 2 07/01/18 16:41 Blood Venous Aerobic Blood Culture - Preliminary No Growth Day 2 07/01/18 16:41 Blood Venous Anaerobic Blood Culture - Preliminary No Growth Day 2 07/01/18 17:24 Urine Urine Culture - Final Providencia Stuartii 07/01/18 23:42 Nasal Nasal Screen MRSA (PCR) - Final Mrsa Detected Assess/Plan/Problems-Billing Assessment: 48 yo female PMH super morbid obesity BMI 110, chronic OM, chronic hypoxic respiratory failure likely secondary to obesity hypoventilation and diastolic CHF, anxiety, anemia p/w left thigh to foot cellulitis and weeping right hip cellulitis. On cefepime (s/p vanc, flagyl) for PSDA on right flank wound. Increased diuresis for anisarca. - Patient Problems (1) Cellulitis Current Visit: No Status: Acute Priority: High Onset Date: 12/12/13 Code (s): L03.90 - CELLULITIS, UNSPECIFIED SNOMED Code(s): 069633472 Comment: appreciate ID recs improving Continue cefepime, f/u PSDA sensitivities for final abx recs ID stopping vancomycin and flagyl has midline anisarca putting her at greater risk for cellulitis, diuresis increased as above. (2) Anasarca Current Visit: No Status: Acute Code(s): R60.1 - GENERALIZED EDEMA SNOMED Code(s): 103329269 Comment: Last ECHO in 2016 was extremely limited. pEF. Suspect some diastolic dysfunction component. continue diuresis to 40mg IV BID from home 40mg po daily. daily weights, strict ios. BNP 99 up from 58 on 06/04. they can't get an accurate bed weight in the current bed. tomorrow with artur? (3) Anxiety Current Visit: No Status: Acute Priority: High Code(s): F41.9 - ANXIETY DISORDER, UNSPECIFIED SNOMED Code(s): 44867892 Comment: - Continue sertraline and klonopin. Supportive care. (4) DVT prophylaxis Current Visit: No Status: Acute Priority: High Code(s): KKA5416 - SNOMED Code(s): 092294065 Comment: SQ Heparin. (5) Anemia Current Visit: No Status: Chronic Code(s): D64.9 - ANEMIA, UNSPECIFIED SNOMED Code(s): 321468681 Comment: c/w iron supplementation (6) Full code status Current Visit: No Status: Chronic Priority: High Code(s): Z78.9 - OTHER SPECIFIED HEALTH STATUS SNOMED Code(s): 885693491 (7) Morbid obesity with BMI of 70 and over, adult Current Visit: No Status: Chronic Priority: High Code(s): E66.9 - OBESITY , UNSPECIFIED; Z68.45 - BODY MASS INDEX (BMI) 70 OR GREATER, ADULT SNOMED Code (s): 293731096 Comment: In 23 months weight has increased ~140 lbs. appreciate nutrition assessment concerned that some of this is excess edema/anasarca and have increaed diuresis. Status and Disposition: medicine inpatient. Back to [facility], likely 07/05 after final abx recs in
[2018-07-04] MEDS ORDERED: Potassium Chloride LIQUID* 20 MEQ PACKET PO ONE (17:00)
[2018-07-05] MEDS: Cefepime 2 GM in Dextrose(*) 2 GM/50 ML BAG IV SCH (04:05)
[2018-07-05 05:11] LABS: BUN/Creatinine Ratio 22.4 (8-20); Calcium 8.6 mg/dL (8.6-10.3); EGFR African American 86.4 (>60); EGFR Non-African American 71.4 (>60); Magnesium 1.8 mg/dL (1.9-2.7); Potassium 3.4 mmol/L (3.5-5.0)
[2018-07-05] MEDS: Heparin VIAL(*) 5000 UNITS/ML VIAL (FIVE THOUSAND) SUBCUT SCH (05:55)
[2018-07-05] MEDS ORDERED: Vancomycin Trough Check NOTE FOLLOW UP ONE (07:30)
[2018-07-05] MEDS: Cyanocobalamin TAB* 500 MCG PO SCH (09:18)
[2018-07-05] MEDS: Ondansetron TAB* 4 MG PO PRN (09:19)
[2018-07-05] MEDS: Cholecalciferol TAB* 1000 UNITS PO SCH (09:19)
[2018-07-05] MEDS: Multivitamins/Minerals TAB PO SCH (09:19)
[2018-07-05] MEDS: Sertraline* 100 MG TAB PO SCH (09:20)
[2018-07-05] MEDS: oxyCODONE/Acetamin 5/325 MG* TAB PO PRN (09:20)
[2018-07-05] MEDS: Oxybutynin TAB* 5 MG PO SCH (09:21)
[2018-07-05] MEDS: Ferrous Sulfate TAB* 325 MG PO SCH (09:21)
[2018-07-05] MEDS: Lactobacillus Acidophilus* 1 TAB PO SCH (09:21)
[2018-07-05] MEDS: Furosemide IV* 10 MG/ML VIAL (40 MG) IV SCH (09:22)
[2018-07-05] MEDS: Docusate CAP* 100 MG PO SCH (09:24)
[2018-07-05] MEDS: Senna TAB PO SCH (09:24)
[2018-07-05] MEDS: busPIRone TAB* 5 MG PO SCH (09:30)
[2018-07-05] MEDS: Nystatin TOP POWDER* 15 GM BTL TOPICAL SCH (09:33)
--- NOTE | 2018-07-05 10:35 | PN ---
Progress Note - Progress Note Date of Service: 07/05/18 SOAP: Subjective: CC: cellulitis HPI: 48 year old woman with morbid obesity recently with malaise and chills. Right flank redness and pain. both are improving. Left leg redness and pain, almost gone. Otherwise feels well. Objective: Vital Signs Temp 36.7 C 07/05/18 04:09 Pulse 68 07/05/18 04:09 Resp 16 07/05/18 09:20 BP 121/54 07/05/18 04:09 Pulse Ox 97 07/05/18 04:09 Intake & Output 07/04/18 07/05/18 07/05/18 18:59 06:59 18:59 Intake Total 2628 420 740 Output Total 3425 2225 Balance -797 -1805 740 Intake: IV Fluids 80 ABX - CEFEPIME 55 NS (0.9%) 25 IVPB 268 ABX - VANCOMYCIN 268 Oral 2360 340 740 Output: Golden 3425 2225 Other: # Bowel Movements 1 0 Estimated Stool Amount Medium Gen:awake, no distress HEENT: no thrush Heart:RRR no murmur Lungs:CTA BL Abd:+BS NTND soft Skin: Right flank panus mild erythema and superficial ulceration, no fluctuance ; left lower leg mild erythema Assessment: 1. Right flank cellulitis and left leg cellulitis; improving 2. super morbid obesity 3. hx R ankle ORIF and recurrent infection on salvage determiner suppression Plan: 1. will change cefepime to levaquin 750 mg po daily for 5 more days then resume suppressive doxycycline indefinitely Discussed with Dr Sam
[2018-07-05] MEDS ORDERED: Levofloxacin TAB* 500 MG PO SCH (11:00)
--- NOTE | 2018-07-05 11:23 | PN ---
Progress Note - Progress Note Date of Service: 07/05/18 Note: Time spent on discharge including exam of pt, discussion with pt, CM, SOFTWARE DEVELOPMENT COORDINATOR Willy, nurse, Dr. Merchant, review of EMR and preparation of discharge documents 50 minutes.
--- NOTE | 2018-07-05 11:59 | TRS ---
CC: [facility] * DATE OF ADMISSION: 07/01/2018. DATE OF TRANSFER: 07/05/2018. Please use this as the admission history and physical at [facility] as well. HISTORY OF PRESENT ILLNESS: This 48-year-old woman presented with left lower leg warmth, redness, and swelling. She had been on antibiotics a number of times since 2016 when she had a tib fib fracture. She had been on chronic suppression with Doxycycline for recurrent skin infections. Later she received more antibiotics. She has presumed pyelonephritis in May of this year. Blood cultures were negative. She was given Levofloxacin and then changed to Vantin 200 mg b.i.d. for ten days which she completed on June 18. There was some right upper hip and thigh drainage as well. She has been on Doxycycline for that. There was concern about DVT. I note in the past she had an echocardiogram with a very poor quality due to her body habitus. She did have a venous Doppler study of the legs on this admission. There was no left lower extremity deep venous thrombosis. She was treated with antibiotics here. This consisted of Cefepime. She will take a five day course of Levofloxacin at the nursing facility and then convert back to Doxycycline 100 mg p.o. b.i.d. indefinitely as per Dr. Merchant's recommendations. I note a wound culture from I believe her thigh growing out pseudomonas aeruginosa. The sensitivities are pending at this time. The patient received IV Furosemide. She did have at least six liters of negative fluid balance while this is being given. I think the only way we can determine her dry weight is to diurese her until her BUN goes up slightly and then back off. Being weighed twice a week or more, if practical, would be of help. I am recommending a weekly BMP at this point to help guide her medication dosage that should depend on her lab results, her weights, and her recent medication. I am going to try her on Torsemide 80 mg once daily with some potassium supplementation as well. FINAL DIAGNOSES: 1. Cellulitis. 2. Question of chronic edema, possible diastolic heart failure. 3. Morbid obesity. 4. Anemia. DISCHARGE MEDICATIONS: 1. Vitamin D3 2,000 units daily. 2. Vitamin B12 1,000 mcg daily. 3. Ferrous Sulfate 325 mg daily. 4. Multivitamin with mineral one daily. 5. Oxybutynin 5 mg t.i.d. 6. Sertraline 200 mg daily. 7. Oxycodone with acetaminophen one to two tablets every 4 hours prn. 8. Ondansetron 4 mg daily prn. 9. Buspirone 7.5 mg b.i.d. 10. Nystatin apply to affected areas b.i.d. 11. Clonazepam 0.5 mg b.i.d. prn. 12. Levofloxacin 500 mg daily for 5 days, then doxycycline 100 mg bid indefinitely I am recommending that the patient have no outside food or drink, except for one diet Pepsi a day. She is not to have any second helpings or extra desserts. This can be relaxed on special occasions which probably should be limited to her birthday, her wedding anniversary, Alayna, and Jai. DISPOSITION ON DISCHARGE: Discharged to [facility]. CONDITION ON DISCHARGE: Stable. [id number]/CPS #: [id number] SHANA
[2018-07-05 12:50] VITALS: BP 148/70
[2018-07-05] MEDS ORDERED: Potassium Chlor TAB* 10 MEQ TAB.ER PO SCH (21:00)
[2018-07-06] MEDS ORDERED: Torsemide TAB* 20 MG PO SCH (09:00)
== END 2018-07-05 15:00 | DRG 383 ==
LOC: ED 16:01 → SSU 20:07
PROVIDERS: ADMIT Internal Medicine; ATTEND Internal Medicine
PROC: 5A09357 Assistance with Respiratory Ventilation, Less than 24 Consecutive Hours, Continuous Positive Airway Pressure (ICD-10-PCS; principal; 2018-07-04)
DX: L03.116 Cellulitis of left lower limb (principal); J96.11 Chronic respiratory failure with hypoxia; M86.661 Other chronic osteomyelitis, right tibia and fibula; L03.818 Cellulitis of other sites; I50.32 Chronic diastolic (congestive) heart failure; Z68.45 Body mass index [BMI] 70 or greater, adult; E66.01 Morbid (severe) obesity due to excess calories; F41.9 Anxiety disorder, unspecified; R00.0 Tachycardia, unspecified; I89.0 Lymphedema, not elsewhere classified; F32.9 Major depressive disorder, single episode, unspecified; D50.9 Iron deficiency anemia, unspecified; E55.9 Vitamin D deficiency, unspecified; M15.9 Polyosteoarthritis, unspecified; F50.9 Eating disorder, unspecified; L03.115 Cellulitis of right lower limb; Z82.49 Family history of ischemic heart disease and other diseases of the circulatory system; Z80.0 Family history of malignant neoplasm of digestive organs; Z86.14 Personal history of Methicillin resistant Staphylococcus aureus infection; Z56.0 Unemployment, unspecified
CPT/HCPCS: 36415; 80048; 80202; 81003; 81015; 83735; 83880; 85025; 85652; 86140; 87040; 87070; 87077; 87086; 87186; 87205; 87641; 94660; 99285; A9270-GY; J0692; J1644; J1940; J2405; J3370